=== PATIENT | female | born 1975 | race Caucasian/White ===

== ENCOUNTER → 2017-07-01 15:00 | Outpatient (REF) | payer MEDICAID, SELFPAY ==
[2017-07-01 17:46] LABS: Basophils # 0.1 K/mm3 (0-0.2); Basophils % 0.5 % (0.1-2.0); Eosinophils # 0.4 K/mm3 (0.0-0.4); Eosinophils % 3.8 % (0.1-12.0); Hematocrit 55.6 % (37.0-47.0); Hemoglobin 17.2 g/dL (12.2-16.2); Lymphocytes # 3.2 K/mm3 (0.7-4.5); Lymphocytes % 30.3 K/mm3 (10-50); Mean Corpuscular HGB Conc 30.9 g/dL (31.8-35.4); Mean Corpuscular Volume 97.2 fl (81-99); Mean Platelet Volume 9.6 fl (7.4-10.4); Monocytes # 0.6 K/mm3 (0.1-1.0); Monocytes % 5.7 % (1.7-9.3); Neutrophils # 6.3 K/mm3 (1.8-7.8); Neutrophils % 59.6 % (37.0-80.0); Platelet Count 176 K/mm3 (142-424); Red Blood Count 5.72 M/mm3 (4.20-5.40); Red Cell Distribution Width 14.1 % (11.5-17.5); White Blood Count 10.6 K/mm3 (4.8-10.8)
[2017-07-01 18:10] LABS: Alanine Aminotransferase 26 U/L (12-78); Albumin Level 3.4 gm/dL (3.4-5.0); Albumin/Globulin Ratio 0.9 (1.1-1.8); Alkaline Phosphatase 78 U/L (46-116); Anion Gap 8.5 mEq/L (5-15); Aspartate Amino Transferase 17 U/L (15-37); Bilirubin,Total 0.3 mg/dL (0.2-1.0); Blood Urea Nitrogen 20 mg/dL (7-18); Calcium 8.6 mg/dL (8.5-10.1); Carbon Dioxide 32 mmol/L (21.0-32.0); Chloride 108 mmol/L (98-107); Chol/HDL Ratio 4.3 (1-3.5); Cholesterol 189 mg/dL (140-200); Creatinine,Serum 0.83 mg/dL (0.55-1.02); Estimated Glomerular Filt Rate 75 ml/min (>60); Free T4 (Free Thyroxine) 1.28 ng/dl (0.76-1.46); GFR (African American) 91 ML/MIN (>60); Globulin 3.9 gm/dl (1.3-3.2); Glucose 85 mg/dL (74-106); HDL Cholesterol 44 mg/dL (29-89); LDL Cholesterol 116 mg/dL (0-130); Potassium 4.5 mmoL/L (3.5-5.1); Sodium 144 mmol/L (136-145); Thyroid Stimulating Hormone 2.33 uIU/ml (0.358-3.740); Total Protein,Serum 7.3 gm/dL (6.4-8.2); Triglycerides 145 mg/dL (30-200); VLDL Cholesterol 29 mg/dL (0-40)
[2017-07-01 18:37] LABS: Hemoglobin A1C 5.5 % (0.0-7.0)
== END ==
LOC: LAB 15:00
PROVIDERS: Visit Provider Nurse Practitioner Family
DX: R53.83 Other fatigue (principal)
CPT/HCPCS: 80053; 80061; 82652; 83036; 84439; 84443; 85025

== ENCOUNTER → 2017-08-06 14:11 | Outpatient (CLI) | payer MEDICAID, SELFPAY ==
[2017-08-06 18:49] LABS: Basophils % 0.3 % (0.1-2.0); Eosinophils # 0.9 K/mm3 (0.0-0.4); Eosinophils % 7.1 % (0.1-12.0); Lymphocytes # 3.1 K/mm3 (0.7-4.5); Lymphocytes % 25.7 K/mm3 (10-50); Mean Corpuscular HGB Conc 30.7 g/dL (31.8-35.4); Mean Corpuscular Hemoglobin 30.3 pg (27.0-31.2); Mean Corpuscular Volume 98.7 fl (81-99); Mean Platelet Volume 9.5 fl (7.4-10.4); Monocytes # 0.8 K/mm3 (0.1-1.0); Monocytes % 6.3 % (1.7-9.3); Neutrophils # 7.2 K/mm3 (1.8-7.8); Neutrophils % 60.5 % (37.0-80.0); Platelet Count 216 K/mm3 (142-424); Red Cell Distribution Width 13.7 % (11.5-17.5); White Blood Count 11.9 K/mm3 (4.8-10.8)
[2017-08-06 18:57] LABS: Hematocrit 55.3 % (37.0-47.0)
[2017-08-06 19:34] LABS: Alanine Aminotransferase 17 U/L (12-78); Albumin/Globulin Ratio 0.7 (1.1-1.8); Alkaline Phosphatase 96 U/L (46-116); Anion Gap 12.1 mEq/L (5-15); Aspartate Amino Transferase 11 U/L (15-37); Bilirubin,Total 0.2 mg/dL (0.2-1.0); Blood Urea Nitrogen 15 mg/dL (7-18); Calcium 8.8 mg/dL (8.5-10.1); Carbon Dioxide 31 mmol/L (21.0-32.0); Chloride 105 mmol/L (98-107); Creatinine,Serum 0.94 mg/dL (0.55-1.02); Estimated Glomerular Filt Rate 65 ml/min (>60); GFR (African American) 79 ML/MIN (>60); Globulin 4.2 gm/dl (1.3-3.2); Glucose 86 mg/dL (74-106); Potassium 4.1 mmoL/L (3.5-5.1); Sodium 144 mmol/L (136-145); Total Protein,Serum 7.2 gm/dL (6.4-8.2)
[2017-08-06 19:36] LABS: Amphetamine/Metha Screen,Urine Negative ng/mL (<1000); Barbiturates Screen,Urine Negative ng/mL (<200); Benzodiazepines Screen,Urine Negative ng/mL (200); Cannabinoid Screen,Urine Positive ng/mL (<50); Cocaine Screen,Urine Negative ng/g (<300); Methadone Screen,Urine Negative ng/mL (<300); Opiate Screen,Urine Negative ng/mL (<300); Phencyclidine Screen,Urine Negative ng/mL (<25)
== END ==
PROVIDERS: Visit Provider Nurse Practitioner Family
DX: R53.83 Other fatigue (principal); Z79.899 Other long term (current) drug therapy; R31.9 Hematuria, unspecified
CPT/HCPCS: 80053; 80305; 85025; 87086

== ENCOUNTER → 2018-10-06 12:04 | Outpatient (CLI) | payer MEDICAID, SELFPAY ==
[2018-10-06 12:40] LABS: Basophils # 0.1 K/mm3 (0-0.2); Basophils % 0.6 % (0.1-2.0); Eosinophils # 0.7 K/mm3 (0.0-0.4); Eosinophils % 6.5 % (0.1-12.0); Hematocrit 57.3 % (37.0-47.0); Lymphocytes # 3.2 K/mm3 (0.7-4.5); Mean Corpuscular Hemoglobin 30.3 pg (27.0-31.2); Mean Corpuscular Volume 94.9 fl (81-99); Mean Platelet Volume 9.4 fl (7.4-10.4); Monocytes # 0.6 K/mm3 (0.1-1.0); Monocytes % 6.2 % (1.7-9.3); Neutrophils # 5.8 K/mm3 (1.8-7.8); Neutrophils % 55.7 % (37.0-80.0); Platelet Count 186 K/mm3 (142-424); Red Blood Count 6.04 M/mm3 (4.20-5.40); Red Cell Distribution Width 15.3 % (11.5-17.5); White Blood Count 10.4 K/mm3 (4.8-10.8)
[2018-10-06 12:42] LABS: Hemoglobin 18.4 g/dL (12.2-16.2)
[2018-10-06 13:03] LABS: Anion Gap 11.8 mEq/L (5-15); Blood Urea Nitrogen 11 mg/dL (7-18); Calcium 8.7 mg/dL (8.5-10.1); Carbon Dioxide 29 mmol/L (21.0-32.0); Chloride 103 mmol/L (98-107); Creatinine,Serum 0.73 mg/dL (0.55-1.02); Estimated Glomerular Filt Rate 87 ml/min (>60); GFR (African American) 105 ML/MIN (>60); Glucose 84 mg/dL (74-106); Potassium 4.8 mmoL/L (3.5-5.1); Sodium 139 mmol/L (136-145)
== END ==
PROVIDERS: Visit Provider Internal Medicine Cardiovascular Disease
DX: R06.02 Shortness of breath (principal)
CPT/HCPCS: 36415; 80048; 85025

== ENCOUNTER → 2018-10-24 08:33 | Outpatient (CLI) | payer MEDICAID, SELFPAY ==
--- NOTE | 2018-10-24 08:36 | CA_ITS ---
PROCEDURE: 2-D M-mode and color Doppler study INDICATIONS FOR THE TEST: Chest pain COPD+ Heart Murmur Tobacco Smoking+ Palpitations Fatigue Syncope Edema+ Hypertension+Diabetes Mellitus Rheumatic Fever SOB+MÁRQUEZ Obesity + Hyperlipidemia Family History HD Additional History PATIENT INFORMATION HEIGHT: 61 WEIGHT:393 GENDER: Female B/P:144/78 2-D/M-MODE INTERPRETATION: 2-D MEASUREMENTS OBSERVED VALUES IN CMS Right Ventricular Dimension (RVDd) 2.7 Interventricular Septum (Thickness)(IVsd) 1.6 Left Ventricular Internal Dimensions(LVIDd) 4.6 Left Ventricular Posterior Wall (Thickness)(LVPWd) 1.4 Aortic Root 3.0 Aortic Cusp Separation 2.0 Left Atrial Dimensions (LAD) 4.6 2D 1. Left atrium is mildly enlarged, left ventricle is normal size, mild concentric left ventricular hypertrophy, visually estimated ejection fraction 55% with no regional wall motion abnormality, endocardial surfaces are very poorly visualized. 2. The right atrium and right ventricle are mildly enlarged with normal contractility. 3. The aortic valve is minimally thickened and fibrosed. 4. The mitral and tricuspid valve leaflets are minimally thickened. 5. Pulmonic valve is poorly present. 6. No significant pericardial effusion noted. DOPPLER INTERROGATION: Doppler interrogation of the aortic, mitral and tricuspid valvular presence of mild mitral and tricuspid regurgitation, tricuspid regurgitation jet velocity is inadequate for calculation of the right ventricular systolic pressure, diastolic parameters are inconclusive. CONCLUSION: 1. Normal left ventricular size, mild concentric left ventricular hypertrophy, visually estimated ejection fraction 55% with no regional wall motion abnormality. Diastolic parameters are inconclusive. Endocardial surface of poorly visualized. 2. Mildly enlarged right ventricle with normal contractility. 3. Mild mitral and tricuspid regurgitation 4. No significant pericardial effusion noted.
== END ==
PROVIDERS: PCP Emergency Medicine; Visit Provider Internal Medicine Cardiovascular Disease
DX: R06.02 Shortness of breath (principal); R60.0 Localized edema; G47.33 Obstructive sleep apnea (adult) (pediatric)
CPT/HCPCS: 93306; 95806

== ENCOUNTER → 2018-11-02 13:07 | Outpatient (CLI) | payer MEDICAID, SELFPAY ==
--- NOTE | 2018-11-02 13:29 | XR_ITS ---
XR chest 2V HISTORY: Shortness of breath, chest pain ITS.REASON: chest x ray ORDERING PHYSICIAN: Reginald Sesay MD PATIENT AGE: 43 years COMPARISON: 04/09/2017 FINDINGS: There is cardiomegaly without failure. No lobar consolidation or collapse. No acute bony findings. IMPRESSION: Mild cardiomegaly
--- NOTE | 2018-11-02 13:30 | XR_ITS ---
EXAM: XR lumbar spine 2-3V HISTORY: ITS.REASON: back pain ORDERING PHYSICIAN: Reginald Sesay MD PATIENT AGE: 43 years COMPARISON: None FINDINGS: Normal alignment. No fracture or dislocation. No lytic or blastic change. There are mild degenerative changes with mild endplate osteophytes in the lower thoracic spine and at L5. The disc spaces are well-preserved IMPRESSION: Mild degenerative changes, no acute finding
[2018-11-02 15:21] LABS: C-Reactive Protein 2.7 mg/L (0.0-0.9)
[2018-11-02 15:26] LABS: Erythrocyte Sedimentation Rate 6 mm/hr (0-20)
[2018-11-03 13:12] LABS: Anti-Centromere B Antibodies <0.2 AI (0.0-0.9); Anti-Jo-1 <0.2 AI (0.0-0.9); Anti-Smith Antibody <0.2 AI (0.0-0.9); Antichromatin Antibodies <0.2 AI (0.0-0.9); Antiscleroderma-70 Antibodies <0.2 AI (0.0-0.9); RNP Antibodies 0.4 AI (0.0-0.9); Sjogren's Anti-SS-A <0.2 AI (0.0-0.9); Sjogren's Anti-SS-B 0.9 AI (0.0-0.9)
[2018-11-04 06:22] LABS: dRVVT 50.6 sec (0.0-47.0); dRVVT Mix 37.1 sec (0.0-47.0)
[2018-11-04 17:48] LABS: Anti-DNA (DS) Ab Qn <1 IU/mL (0-9); RA Latex Turbid. <10.0 IU/mL (0.0-13.9)
[2018-11-04 17:49] LABS: Anti-Cyclic Citrullinated Pept 6 units (0-19)
[2018-11-04 17:51] LABS: Lupus Reflex Interpretation Comment: (.)
== END ==
PROVIDERS: PCP Nurse Practitioner Family; Visit Provider Internal Medicine Cardiovascular Disease
DX: J44.9 Chronic obstructive pulmonary disease, unspecified (principal); M25.50 Pain in unspecified joint; M54.9 Dorsalgia, unspecified; R06.02 Shortness of breath; R60.0 Localized edema; Z72.0 Tobacco use; F17.200 Nicotine dependence, unspecified, uncomplicated
CPT/HCPCS: 36415; 71046; 72100; 85613; 85651; 86140; 86200; 86225; 86235; 86431

== ENCOUNTER → 2018-11-16 16:37 | Outpatient (CLI) | payer MEDICAID, SELFPAY | PROVIDERS: Visit Provider Internal Medicine Cardiovascular Disease | DX: R06.02 Shortness of breath (principal) ==

== ENCOUNTER → 2018-12-01 11:51 | Outpatient (CLI) | payer MEDICAID, SELFPAY ==
[2018-12-01 15:14] LABS: Anion Gap 14.2 mEq/L (5-15); Blood Urea Nitrogen 30 mg/dL (7-18); Calcium 9.1 mg/dL (8.5-10.1); Carbon Dioxide 26 mmol/L (21.0-32.0); Chloride 101 mmol/L (98-107); Creatinine,Serum 0.96 mg/dL (0.55-1.02); Estimated Glomerular Filt Rate 63 ml/min (>60); GFR (African American) 77 ML/MIN (>60); Glucose 88 mg/dL (74-106); Potassium 5.2 mmoL/L (3.5-5.1); Sodium 136 mmol/L (136-145)
== END ==
PROVIDERS: Visit Provider Internal Medicine Cardiovascular Disease
DX: I10 Essential (primary) hypertension (principal); R06.02 Shortness of breath; R60.0 Localized edema
CPT/HCPCS: 36415; 80048

== ENCOUNTER → 2018-12-22 14:26 | Outpatient (CLI) | payer MEDICAID, SELFPAY ==
[2018-12-22 15:07] LABS: Amphetamine/Metha Screen,Urine Negative ng/mL (<1000); Barbiturates Screen,Urine Negative ng/mL (<200); Benzodiazepines Screen,Urine Negative ng/mL (<200); Cannabinoid Screen,Urine Negative ng/mL (<50); Cocaine Screen,Urine Negative ng/mL (<300); Methadone Screen,Urine Negative ng/mL (<300); Opiate Screen,Urine Negative ng/mL (<300); Phencyclidine Screen,Urine Negative ng/mL (<25)
== END ==
PROVIDERS: Visit Provider Nurse Practitioner Family
DX: Z79.899 Other long term (current) drug therapy (principal)
CPT/HCPCS: 80305

== ENCOUNTER → 2019-10-18 15:38 | Outpatient (CLI) | payer MEDICARE, MEDICAID, SELFPAY ==
[2019-10-18 16:07] LABS: Alanine Aminotransferase 14 U/L (12-78); Albumin Level 3.9 g/dl (3.5-5.0); Albumin/Globulin Ratio 1.1 (1.1-1.8); Alkaline Phosphatase 96 U/L (38-126); Anion Gap 10.9 mEq/L (5-15); Aspartate Amino Transferase 28 U/L (14-36); Bilirubin,Total 0.7 mg/dl (0.2-1.3); Blood Urea Nitrogen 23 mg/dl (7-17); Calcium 9.6 mg/dl (8.4-10.2); Carbon Dioxide 31 mmol/L (22.0-30.0); Chloride 99 mmol/L (98-107); Cholesterol 166 mg/dl (140-200); Estimated Glomerular Filt Rate 78 ml/min (>60); GFR (African American) 94 ML/MIN (>60); Globulin 3.7 g/dL (1.3-3.2); Glucose 92 mg/dl (74-100); HDL Cholesterol 55 mg/dl (40-60); Potassium 4.9 mmoL/L (3.5-5.1); Sodium 136 mmol/L (136-145); Total Protein,Serum 7.6 g/dl (6.3-8.2); Triglycerides 144 mg/dl (30-150); VLDL Cholesterol 29 mg/dL (0-40)
[2019-10-18 16:18] LABS: Direct LDL Cholesterol 96.54 mg/dL (100-129)
[2019-10-18 16:23] LABS: T4 (Thyroxine) 17.7 ug/dl (5.53-11.0)
[2019-10-18 16:37] LABS: Thyroid Stimulating Hormone 2.94 uIU/mL (0.465-4.68)
[2019-10-18 20:05] LABS: Basophils # 0.2 K/mm3 (0-0.2); Basophils % 1.7 % (0.1-2.0); Eosinophils # 0.5 K/mm3 (0.0-0.4); Eosinophils % 4.5 % (0.1-12.0); Hematocrit 57.7 % (37.0-47.0); Lymphocytes # 2.9 K/mm3 (0.7-4.5); Lymphocytes % 26.1 % (10-50); Mean Corpuscular HGB Conc 31.4 g/dL (31.8-35.4); Mean Corpuscular Hemoglobin 30.8 pg (27.0-31.2); Mean Corpuscular Volume 97.9 fl (81-99); Mean Platelet Volume 9.6 fl (7.4-10.4); Monocytes # 0.7 K/mm3 (0.1-1.0); Monocytes % 6.3 % (1.7-9.3); Neutrophils # 6.8 K/mm3 (1.8-7.8); Neutrophils % 61.4 % (37.0-80.0); Platelet Count 216 K/mm3 (142-424); Red Blood Count 5.89 M/mm3 (4.20-5.40); Red Cell Distribution Width 15.4 % (11.5-17.5)
[2019-10-18 20:11] LABS: Hemoglobin 18.1 g/dL (12.2-16.2)
[2019-10-20 07:27] LABS: Vitamin D 25 Hydroxy 11.5 ng/mL (30.0-100.0)
== END ==
PROVIDERS: Visit Provider Nurse Practitioner Family
DX: K21.0 Gastro-esophageal reflux disease with esophagitis (principal); M79.7 Fibromyalgia; E66.9 Obesity, unspecified; E55.9 Vitamin D deficiency, unspecified
CPT/HCPCS: 80053; 80061; 82652; 84436; 84443; 85025

== ENCOUNTER 2021-02-21 04:36 | Emergency (ER) | payer MEDICARE, MEDICAID, SELFPAY ==
[2021-02-21 04:38] VITALS: BP 130/57; PULSE 79; RESP 20; TEMP 36.9; O2SAT 92; BMI 75.5
--- NOTE | 2021-02-21 05:04 | US_ITS ---
PROCEDURE: US TRANSVAGINAL CLINICAL INDICATION: vaginal bleeding COMPARISON: No exams were available for comparison FINDINGS: UTERUS: 11cm x 5cmx 5cm with a combined endometrial thickness of 28.6mm LEFT OVARY: [id number] with a volume of 5.5ml. There is marked endometrial thickening with heterogeneous echogenicity which may be related to hemorrhage. Uterine carcinoma would be included in the differential diagnosis. Right ovary is not imaged. IMPRESSION: Enlarged uterus with grossly thickened endometrium suggesting blood clot/hemorrhage. Neoplasm not excluded. Dictated by: Pablo Quintana MD 02/21/2021 07:26 Pablo Quintana MD in [place] 02/21/2021 07:26
--- NOTE | 2021-02-21 05:08 | HMH.EDGENADL ---
ED Disposition Condition on Discharge: Serious - Critical Care Critical Care Time: No <Klarissa Whitaker - Last Filed: 02/21/21 07:54> <Jordon Mcdonald - Last Filed: 02/21/21 20:35> Clinical Impression: Vaginal bleeding, Left against medical advice, DUB (dysfunctional uterine bleeding) Disposition: Left Against Medical Advice Additional Instructions: see pcp and cathode maker for follow up Referrals: Jordon Mcdonald MD [Primary Care Provider] - Attestation: On 02/21/21, the high probability of a clinically significant, sudden or life threatening deterioration of the following system(s) required my full and direct attention, intervention and personal management. The time I documented below is in addition to time spent performing reported procedures but includes the following listed in this critical care notation. Medical Decision Making - Medical Records Medical records reviewed: Yes: I reviewed the patient's medical records. - Elton Inquiry Pt receiving controlled substance: No - Lab Data Result diagrams: 02/21/21 07:30 02/21/21 05:12 <Klarissa Whitaker - Last Filed: 02/21/21 07:54> - Lab Data Lab results reviewed: Yes: I reviewed the patient's lab results. Result diagrams: 02/21/21 07:30 02/21/21 05:12 - Physician Consults Physician Consulted: arely Reason -: Pt condition <Jordon Mcdonald - Last Filed: 02/21/21 20:35> Vital Signs: 02/21/21 04:38 02/21/21 07:32 02/21/21 07:33 Temperature 98.4 F Temperature Source Oral Pulse Rate 81 84 Pulse Rate [Right] 79 Respiratory Rate 20 20 Blood Pressure 141/78 H 141/78 H Blood Pressure [Right Arm] 130/57 L Blood Pressure Mean 93 Blood Pressure Mean [Right Arm] 81 Blood Pressure Position Sitting 02 Sat by Pulse Oximetry 92 L 92 L 92 L Oxygen Delivery Method Room Air 02/21/21 08:17 Temperature 98 F Temperature Source Oral Pulse Rate 89 Pulse Rate [Right] Respiratory Rate 18 Blood Pressure 138/68 Blood Pressure [Right Arm] Blood Pressure Mean Blood Pressure Mean [Right Arm] Blood Pressure Position Sitting 02 Sat by Pulse Oximetry Oxygen Delivery Method Room Air - Lab Data Lab Results 02/21/21 04:55: Urine Color Red, Urine Appearance Turbid, Urine pH 6.5, Ur Specific [place] 1.020, Urine Protein 2+, Urine Glucose (UA) Negative, Urine Ketones Negative, Urine Blood 3+, Urine Nitrate Negative, Urine Bilirubin Negative, Urine Urobilinogen 1.0, Ur Leukocyte Esterase 1+ A, Urine RBC Tntc, Urine WBC 3-5, Urine Bacteria 1+ 02/21/21 05:12: WBC 12.0 H, RBC 6.05 H, Hgb 17.6 H, Hct 59.1 H, MCV 97.7, MCH 29.0, MCHC 29.7 L, RDW 16.7, Plt Count 243, MPV 8.8, Neut % (Auto) 68.8, Lymph % (Auto) 21.2, [place] % (Auto) 5.6, Eos % (Auto) 3.5, Baso % (Auto) 1.0, Neut # (Auto) 8.3 H, Lymph # (Auto) 2.5, [place] # (Auto) 0.7, Eos # (Auto) 0.4, Baso # (Auto) 0.1 02/21/21 05:12: Sodium 140, Potassium 4.6, Chloride 101, Carbon Dioxide 33 H, Anion Gap 10.6, BUN 16, Creatinine 0.80, Estimated Creat Clear 67, Estimated GFR 78, Est GFR ( Amer) 94, Glucose 115 H, Calcium 8.7, Total Bilirubin 0.5, AST 23, ALT 15, Alkaline Phosphatase 94, Total Protein 7.3, Albumin 3.6, Globulin 3.7 H, Albumin/Globulin Ratio 1.0 L 02/21/21 05:12: Serum HCG, Qual Negative 02/21/21 07:30: WBC 14.3 H, RBC 5.84 H, Hgb 16.8 H, Hct 57.3 H, MCV 98.0, MCH 28.8, MCHC 29.4 L, RDW 16.7, Plt Count 259, MPV 8.3, Neut % (Auto) 73.9, Lymph % (Auto) 14.8, [place] % (Auto) 7.5, Eos % (Auto) 2.9, Baso % (Auto) 0.9, Neut # (Auto) 10.6 H, Lymph # (Auto) 2.1, [place] # (Auto) 1.1 H, Eos # (Auto) 0.4, Baso # (Auto) 0.1 Orders (Tests/Meds): ED MEDICATIONS Discontinued Medications Generic Name Dose Route Start Last Admin Trade Name Freq PRN Reason Stop Dose Admin Estrogens Conjugated 25 mg 02/21/21 06:45 02/21/21 07:03 Estrogens, Conjugated 25mg Vial IV 02/21/21 06:46 25 mg ONCE ONE Administration Sodium Chloride 50 ml 02/21/21 07:03 02/21/21 07:04 Sodium Chloride
--- NOTE | 2021-02-21 05:15 | PC.NURSE ---
paged u/s tech at this time
[2021-02-21 05:18] LABS: Microscopic, Urine URINE MICROSCOPIC (MICROSCOPIC)
--- NOTE | 2021-02-21 05:20 | PC.NURSE ---
2nd u/s [employer] paged at this time d/t change in on-order caller. S/w Stacy.
[2021-02-21 05:21] LABS: Basophils # 0.1 K/mm3 (0-0.2); Eosinophils # 0.4 K/mm3 (0.0-0.4); Eosinophils % 3.5 % (0.1-12.0); Hematocrit 59.1 % (37.0-47.0); Hemoglobin 17.6 g/dL (12.2-16.2); Lymphocytes # 2.5 K/mm3 (0.7-4.5); Lymphocytes % 21.2 % (10-50); Mean Corpuscular HGB Conc 29.7 g/dL (31.8-35.4); Mean Corpuscular Volume 97.7 fl (81-99); Mean Platelet Volume 8.8 fl (7.4-10.4); Monocytes # 0.7 K/mm3 (0.1-1.0); Monocytes % 5.6 % (1.7-9.3); Neutrophils # 8.3 K/mm3 (1.8-7.8); Neutrophils % 68.8 % (37.0-80.0); Platelet Count 243 K/mm3 (142-424); Red Blood Count 6.05 M/mm3 (4.20-5.40); Red Cell Distribution Width 16.7 % (11.5-17.5)
[2021-02-21 05:24] LABS: Chloride 101 mmol/L (98-107); Potassium 4.6 mmoL/L (3.5-5.1); Sodium 140 mmol/L (136-145)
[2021-02-21 05:27] LABS: Alanine Aminotransferase 15 U/L (12-78); Albumin Level 3.6 g/dl (3.5-5.0); Alkaline Phosphatase 94 U/L (38-126); Anion Gap 10.6 mEq/L (5-15); Aspartate Amino Transferase 23 U/L (14-36); Bilirubin,Total 0.5 mg/dl (0.2-1.3); Blood Urea Nitrogen 16 mg/dl (7-17); Carbon Dioxide 33 mmol/L (22.0-30.0); Creatinine Clearance Estimated 67 mL/min (50-200); Estimated Glomerular Filt Rate 78 ml/min (>60); GFR (African American) 94 ML/MIN (>60); Globulin 3.7 g/dL (1.3-3.2); Total Protein,Serum 7.3 g/dl (6.3-8.2)
[2021-02-21 05:28] LABS: Calcium 8.7 mg/dl (8.4-10.2); Glucose 115 mg/dl (74-100)
[2021-02-21 05:30] LABS: HCG Qualitative, Serum Negative (Negative)
[2021-02-21 05:40] LABS: Appearance,Urine TURBID (Clear); Bilirubin,Urine Negative (Negative); Blood, Urine 3+ (Negative); Color,Urine RED (Yellow); Glucose,Urine (UA) Negative (Negative); Ketones,Urine Negative (Negative); Leukocyte Esterase,Urine 1+ (Negative); Nitrate,Urine Negative (Negative); PH,Urine 6.5 (5.0-8.5); Protein,Urine 2+ (Negative)
[2021-02-21 05:41] LABS: Bacteria,Urine 1+ /lpf; RBC,Urine TNTC #/hpf (0-3)
--- NOTE | 2021-02-21 05:50 | PC.NURSE ---
pt to u/s with solar maintenance technician
--- NOTE | 2021-02-21 06:20 | PC.NURSE ---
MD Julianne gainesceled Type & Screen, Lab notified
--- NOTE | 2021-02-21 06:29 | PC.NURSE ---
pt back from u/s.
--- NOTE | 2021-02-21 06:37 | PC.NURSE ---
on phone with dr mcgee @ this time
--- NOTE | 2021-02-21 07:04 | PC.NURSE ---
spoke with Estella from [facility]. premarin to be mixed with 50ml ns and infused over 30mins
[2021-02-21 07:32] VITALS: BP 141/78; PULSE 81; O2SAT 92
[2021-02-21 07:33] VITALS: BP 141/78; PULSE 84; RESP 20; O2SAT 92
[2021-02-21 07:34] LABS: Basophils # 0.1 K/mm3 (0-0.2); Basophils % 0.9 % (0.1-2.0); Eosinophils # 0.4 K/mm3 (0.0-0.4); Eosinophils % 2.9 % (0.1-12.0); Hematocrit 57.3 % (37.0-47.0); Hemoglobin 16.8 g/dL (12.2-16.2); Lymphocytes # 2.1 K/mm3 (0.7-4.5); Lymphocytes % 14.8 % (10-50); Mean Corpuscular HGB Conc 29.4 g/dL (31.8-35.4); Mean Corpuscular Hemoglobin 28.8 pg (27.0-31.2); Mean Platelet Volume 8.3 fl (7.4-10.4); Monocytes # 1.1 K/mm3 (0.1-1.0); Monocytes % 7.5 % (1.7-9.3); Neutrophils # 10.6 K/mm3 (1.8-7.8); Neutrophils % 73.9 % (37.0-80.0); Platelet Count 259 K/mm3 (142-424); Red Blood Count 5.84 M/mm3 (4.20-5.40); Red Cell Distribution Width 16.7 % (11.5-17.5); White Blood Count 14.3 K/mm3 (4.8-10.8)
--- NOTE | 2021-02-21 08:10 | PC.NURSE ---
pt signing out ama
[2021-02-21 08:17] VITALS: BP 138/68; PULSE 89; RESP 18; TEMP 36.6; O2SAT 98
== END 2021-02-21 08:19 | disposition left against medical advice (07) ==
PROVIDERS: Emergency Provider Emergency Medicine; PCP Emergency Medicine
DX: N93.8 Other specified abnormal uterine and vaginal bleeding (principal); F41.8 Other specified anxiety disorders; I10 Essential (primary) hypertension; J44.9 Chronic obstructive pulmonary disease, unspecified; Z79.899 Other long term (current) drug therapy
CPT/HCPCS: 76830; 80053; 81001; 84703; 85025; 87086; 96365; 99283

== ENCOUNTER → 2021-09-02 15:25 | Outpatient (CLI) | payer MEDICARE, SELFPAY ==
[2021-09-02 16:30] LABS: Basophils # 0.1 K/mm3 (0-0.2); Basophils % 1.2 % (0.1-2.0); Eosinophils # 0.2 K/mm3 (0.0-0.4); Eosinophils % 2.2 % (0.1-12.0); Hematocrit 50.6 % (37.0-47.0); Hemoglobin 14.5 g/dL (12.2-16.2); Lymphocytes # 1.4 K/mm3 (0.7-4.5); Lymphocytes % 20.6 % (10-50); Mean Corpuscular HGB Conc 28.6 g/dL (31.8-35.4); Mean Corpuscular Hemoglobin 23.5 pg (27.0-31.2); Mean Corpuscular Volume 82.3 fl (81-99); Mean Platelet Volume 7.9 fl (7.4-10.4); Monocytes # 0.5 K/mm3 (0.1-1.0); Monocytes % 7.8 % (1.7-9.3); Neutrophils # 4.7 K/mm3 (1.8-7.8); Neutrophils % 68.2 % (37.0-80.0); Platelet Count 218 K/mm3 (142-424); Red Blood Count 6.15 M/mm3 (4.20-5.40); Red Cell Distribution Width 21.3 % (11.5-17.5); White Blood Count 6.9 K/mm3 (4.8-10.8)
[2021-09-02 17:26] LABS: Alanine Aminotransferase 16 U/L (12-78); Albumin Level 3.5 g/dl (3.5-5.0); Albumin/Globulin Ratio 1.2 (1.1-1.8); Alkaline Phosphatase 76 U/L (38-126); Anion Gap 10.2 mEq/L (5-15); Aspartate Amino Transferase 23 U/L (14-36); Bilirubin,Total 1.2 mg/dl (0.2-1.3); Blood Urea Nitrogen 11 mg/dl (7-17); Calcium 9.2 mg/dl (8.4-10.2); Carbon Dioxide 35 mmol/L (22.0-30.0); Chloride 96 mmol/L (98-107); Chol/HDL Ratio 3.9 (1-3.5); Cholesterol 98 mg/dl (140-200); Estimated Glomerular Filt Rate 90 ml/min (>60); GFR (African American) 109 ML/MIN (>60); Glucose 77 mg/dl (74-100); HDL Cholesterol 25 mg/dl (40-60); Potassium 4.2 mmoL/L (3.5-5.1); Sodium 137 mmol/L (136-145); Total Protein,Serum 6.5 g/dl (6.3-8.2); Triglycerides 88 mg/dl (30-150); VLDL Cholesterol 18 mg/dL (0-40)
[2021-09-02 17:31] LABS: Hemoglobin A1C 5.7 % (4.0-6.0)
[2021-09-02 17:38] LABS: Direct LDL Cholesterol 50.48 mg/dL (100-129)
[2021-09-02 17:45] LABS: T4 (Thyroxine) 12.8 ug/dl (5.53-11.0)
[2021-09-02 17:58] LABS: Thyroid Stimulating Hormone 4.39 uIU/mL (0.465-4.68)
[2021-09-02 17:59] LABS: 25-OH Vitamin D, Total < 12.8 ng/mL (30-100)
== END ==
PROVIDERS: Visit Provider Nurse Practitioner Family
DX: G57.93 Unspecified mononeuropathy of bilateral lower limbs (principal); E66.9 Obesity, unspecified; E11.9 Type 2 diabetes mellitus without complications; R53.83 Other fatigue; E55.9 Vitamin D deficiency, unspecified; Z68.45 Body mass index [BMI] 70 or greater, adult
CPT/HCPCS: 80053; 80061; 82306; 83036; 84436; 84443; 85025

== ENCOUNTER 2021-12-07 12:25 | Emergency (ER) | payer MEDICARE, MEDICAID, SELFPAY ==
[2021-12-07 12:26] VITALS: BP 147/83; PULSE 62; RESP 16; TEMP 36.8; O2SAT 98; BMI 61.9
--- NOTE | 2021-12-07 13:00 | HMH.EDUTC ---
[facility] [place] Clinical Impression: Dental abscess, Pain, dental Disposition: Home, Self-Care Condition on Discharge: Good Instructions: Tooth Abscess, DI for Tooth Abscess Additional Instructions: Take tylenol or ibuprofen for pain or fever. Take the medications as directed. Follow up with your regular doctor. GO TO THE ER FOR ANY WORSENING SYMPTOMS You have to be seen by your dentist soon. Prescriptions: Amoxicillin/Potassium Clav [Amox-Clav 875-125 mg Tablet] 1 tab PO BID #20 tab Transmission Status: Received by [facility] Referrals: Jordon Mcdonald MD [Primary Care Provider] - Time of Disposition: 13:13 Medical Decision Making - Medical Records Medical records reviewed: No: I reviewed the patient's medical records. - Elton Inquiry Pt receiving controlled substance: No Vital Signs: 12/07/21 12:26 12/07/21 13:38 Temperature 98.3 F 98.3 F Temperature Source Oral Oral Pulse Rate 80 Pulse Rate [Right] 62 Respiratory Rate 16 16 Blood Pressure 140/70 Blood Pressure [Right Arm] 147/83 H Blood Pressure Mean [Right Arm] 104 Blood Pressure Source Automatic Cuff Blood Pressure Source [Right Arm] Automatic Cuff Blood Pressure Position Sitting Blood Pressure Position [Right Arm] Sitting 02 Sat by Pulse Oximetry 98 Oxygen Delivery Method Room Air Room Air [facility] [place] - General Stated complaint: mouth pain Time Seen by Provider: 12/07/21 13:00 - History of Present Illness Provider Complaint: She states that for the past several days she has had right upper jaw pain from a decayed tooth. - Related Data Previous Rx's Medication Instructions Recorded albuterol sulfate 2.5 mg INHALATION Q6H #75 ml 08/28/21 albuterol sulfate 90 mcg/actuation See Rx Instructions .ROUTE 08/28/21 breath activated powder inhaler .COMPLEX #1 each budesonide-formoterol HFA 160 2 puff INHALATION BID #10.2 g 08/28/21 mcg-4.5 mcg/actuation aerosol inhaler lisinopril 20 1 tab PO BID 90 Days #180 tab 08/28/21 mg-hydrochlorothiazide 25 mg tablet duloxetine 30 mg capsule,delayed See Rx Instructions .ROUTE 08/29/21 release .COMPLEX #90 cap spironolactone 25 mg tablet 25 mg PO DAILY #30 tab 08/29/21 cholecalciferol (vitamin D3) 1,250 1,250 mcg PO WEEKLY #7 tab 09/05/21 mcg (50,000 unit) tablet cholecalciferol (vitamin D3) 50 50 mcg PO DAILY 30 Days #30 cap 09/05/21 mcg (2,000 unit) capsule Amoxicillin/Potassium Clav 1 tab PO BID #20 tab 12/07/21 [Amox-Clav 875-125 mg Tablet] Hydrocodone/Acetaminophen 1 each PO Q6 #12 tab 12/07/21 [Hydrocodone-Acetamin 7.5-325] Allergies Allergy/AdvReac Type Severity Reaction Status Date / Time No Known Allergies Allergy Verified 09/02/21 14:19 [facility] History - Hepatitis A Screen Attestation statement:: This patient has been screened for Hepatitis A risk factors. I have reviewed the patient's past medical history: Yes Medical History: Reports:: Anxiety, Chronic Obstructive Pulmonary Disease (COPD), Depression, Hypertension Laterality Cases: Bilateral: Tonsillectomy Other Surgeries: Yes: No Previous Surgery, Amputation: No Fractures: No - Social History Smoking Status: Current every day smoker Tobacco Type: cigarettes # Packs/Day (cigarettes): 2 #Yrs smoked (if former smoker): 20 Alcohol Intake: never Substance Use Type: marijuana Occupational Status: unemployed Housing: apartment Household Members: family - Psychiatric History Pschychiatric History:: Reports:: Anxiety, Depression Family Hx:: Hypertension, Kidney Disease, Heart Attack, Cancer Comment: Mother- of [place]@53 ROS Obtained: Yes All systems reviewed & no additional complaints - Constitutional Constitutional: Denies chills, Denies fever(s) - Eyes Eyes: Denies eye discharge - ENT Ears, Nose, Mouth, and Throat: Reports as per HPI - Cardiovascular Cardiovascular: Denies chest pain - Respiratory Respiratory: Denies chest congestion,
[2021-12-07 13:38] VITALS: BP 140/70; PULSE 80; RESP 16; TEMP 36.8; O2SAT 98
== END 2021-12-07 13:39 | disposition home or self-care (01) ==
PROVIDERS: Emergency Provider Nurse Practitioner Family; PCP Emergency Medicine
DX: K04.7 Periapical abscess without sinus (principal)
CPT/HCPCS: 99212; G0463

== ENCOUNTER 2021-12-07 16:48 | Emergency (ER) | payer MEDICARE, MEDICAID, SELFPAY ==
[2021-12-07 16:49] VITALS: BP 150/90; PULSE 76; RESP 22; TEMP 36.8; O2SAT 94; BMI 61.9
[2021-12-07 16:56] VITALS: BP 150/90; PULSE 82; RESP 18; O2SAT 95
--- NOTE | 2021-12-07 17:34 | HMH.EDGENADL ---
ED Disposition Clinical Impression: Dental abscess Disposition: Home, Self-Care Condition on Discharge: Good Referrals: Jordon Mcdonald MD [Primary Care Provider] - - Critical Care Critical Care Time: No Attestation: On 12/07/21, the high probability of a clinically significant, sudden or life threatening deterioration of the following system(s) required my full and direct attention, intervention and personal management. The time I documented below is in addition to time spent performing reported procedures but includes the following listed in this critical care notation. Medical Decision Making - Elton Inquiry Pt receiving controlled substance: Yes Elton was queried for this patient: Yes Risks and benefits of using a controlled substance: were discussed with pt by me Vital Signs: 12/07/21 16:49 Temperature 98.2 F Temperature Source Oral Pulse Rate [Radial] 76 Respiratory Rate 22 Blood Pressure [Right Arm] 150/90 H Blood Pressure Mean [Right Arm] 110 Blood Pressure Position [Right Arm] Sitting 02 Sat by Pulse Oximetry 94 L Oxygen Delivery Method Room Air Orders (Tests/Meds): ED MEDICATIONS Discontinued Medications Generic Name Dose Route Start Last Admin Trade Name [place] PRN Reason Stop Dose Admin Ketorolac Tromethamine 60 mg 12/07/21 17:43 12/07/21 17:46 Ketorolac 60mg/2ml Vial IM 12/07/21 17:44 60 mg ONCE ONE Administration Ondansetron HCl 4 mg 12/07/21 17:31 12/07/21 17:32 Ondansetron 4mg Odt SL 12/07/21 17:32 4 mg ONCE ONE Administration General Adult HPI - General Chief complaint: PAIN Stated complaint: dental pain Time Seen by Provider: 12/07/21 17:48 Mode of Arrival: Ambulatory Limitations: No Limitations Description of Symptoms (Recalled from ER Triage Doc. by RN): to ed per pvt car with c/o rt side upper and lower dental pain x 2 weeks progressively getting worse. pt seen at [facility] today and given antibiotics and dental balls with no relief of pain. pt tearful c/o nausea due to pain. - History of Present Illness HPI narrative: pt presents w 2 week h/o dental pain, severe. Seen here earlier today and rxd abx. but states pain is severe. Denies fever. Onset (ago): week(s) Location: mouth Radiation: non-radiation Severity: severe Quality: constant Consistency: constant Relieving factors: none Exacerbating factors: eating Associated symptoms: negative: fever/chills - Related Data Previous Rx's Medication Instructions Recorded albuterol sulfate 2.5 mg INHALATION Q6H #75 ml 08/28/21 albuterol sulfate 90 mcg/actuation See Rx Instructions .ROUTE 08/28/21 breath activated powder inhaler .COMPLEX #1 each budesonide-formoterol HFA 160 2 puff INHALATION BID #10.2 g 08/28/21 mcg-4.5 mcg/actuation aerosol inhaler lisinopril 20 1 tab PO BID 90 Days #180 tab 08/28/21 mg-hydrochlorothiazide 25 mg tablet duloxetine 30 mg capsule,delayed See Rx Instructions .ROUTE 08/29/21 release .COMPLEX #90 cap spironolactone 25 mg tablet 25 mg PO DAILY #30 tab 08/29/21 cholecalciferol (vitamin D3) 1,250 1,250 mcg PO WEEKLY #7 tab 09/05/21 mcg (50,000 unit) tablet cholecalciferol (vitamin D3) 50 50 mcg PO DAILY 30 Days #30 cap 09/05/21 mcg (2,000 unit) capsule Amoxicillin/Potassium Clav 1 tab PO BID #20 tab 12/07/21 [Amox-Clav 875-125 mg Tablet] Allergies Allergy/AdvReac Type Severity Reaction Status Date / Time No Known Allergies Allergy Verified 09/02/21 14:19 [facility] History - Hepatitis A Screen Attestation statement:: This patient has been screened for Hepatitis A risk factors. Medical History: Reports:: Anxiety, Chronic Obstructive Pulmonary Disease (COPD), Depression, Hypertension Laterality Cases: Bilateral: Tonsillectomy Other Surgeries: Yes: No Previous Surgery, Amputation: No Fractures: No - Social History Smoking Status: Current every day smoker Tobacco Type: cigarettes # Packs/Day (cigarettes): 2 #Yrs smoked (i
[2021-12-07 18:16] VITALS: BP 129/74; PULSE 78; RESP 16; TEMP 36.6; O2SAT 98
== END 2021-12-07 18:17 | disposition home or self-care (01) ==
PROVIDERS: Emergency Provider Emergency Medicine; PCP Emergency Medicine
DX: K04.7 Periapical abscess without sinus (principal); Z82.49 Family history of ischemic heart disease and other diseases of the circulatory system; Z84.2 Family history of other diseases of the genitourinary system; Z82.3 Family history of stroke; Z80.9 Family history of malignant neoplasm, unspecified; F41.9 Anxiety disorder, unspecified; J44.9 Chronic obstructive pulmonary disease, unspecified; F32.A Depression, unspecified; I10 Essential (primary) hypertension
CPT/HCPCS: 96372; 99283

== ENCOUNTER 2022-03-20 00:55 | Emergency (ER) | payer MEDICARE, MEDICAID, SELFPAY ==
[2022-03-20 01:00] VITALS: BP 133/74; PULSE 74; RESP 16; TEMP 36.6; O2SAT 95; BMI 71.8
--- NOTE | 2022-03-20 01:11 | HMH.EDGENADL ---
Discharge Plan Disposition Patient Disposition: Home, Self-Care Prescriptions Prescriptions: New cephalexin [cephalexin] 500 mg capsule 500 mg PO TID Qty: 30 0RF No Action ProAir RespiClick 90 mcg/actuation aerosol powdr breath activated See Rx Instructions .ROUTE .COMPLEX Qty: 1 2RF Dose Instruction: INHALE 1 PUFF DAILY FOR COPD Rx Instructions: INHALE 1 PUFF DAILY FOR COPD budesonide-formoterol 160-4.5 mcg/actuation HFA aerosol inhaler 2 puff inhalation BID Qty: 10.2 2RF lisinopril-hydrochlorothiazide 20-25 mg tablet 1 tab PO BID 90 Days Qty: 180 0RF albuterol sulfate 2.5 mg /3 mL (0.083 %) solution for nebulization 2.5 mg INHALATION Q6H Qty: 75 2RF spironolactone [Aldactone] 25 mg tablet 25 mg PO DAILY Qty: 30 4RF duloxetine 30 mg capsule,delayed release(DR/EC) See Rx Instructions .ROUTE .COMPLEX Qty: 90 0RF Dose Instruction: TAKE 1 CAPSULE BY MOUTH ONCE DAILY Rx Instructions: TAKE 1 CAPSULE BY MOUTH ONCE DAILY cholecalciferol (vitamin D3) 1,250 mcg (50,000 unit) tablet 1,250 mcg PO WEEKLY Qty: 7 1RF cholecalciferol (vitamin D3) 50 mcg (2,000 unit) capsule 50 mcg PO DAILY 30 Days Qty: 30 3RF amoxicillin-pot clavulanate 1 EACH tablet 1 tab PO BID Qty: 20 0RF hydrocodone-acetaminophen 1 EACH tablet 1 each PO Q6 Qty: 12 0RF Referrals Follow up/Referrals: Jordon Mcdonald MD [Primary Care Provider] - See instructions Clinical Impressions Clinical Impression: Pain, dental, Dental infection Instructions Patient Instructions: DI for Dental Pain Discharge ED Provider: Jordon Mcdonald General Adult HPI General Chief complaint: PAIN Stated complaint: swollen gums and toothache Time Seen by Provider: 03/20/22 01:12 Mode of Arrival: Ambulatory Source of Information: Patient and Medical Record Limitations: No Limitations Description of Symptoms (Recalled from ER Triage Doc. by RN): C/O PAIN TO RIGHT UPPER BACK TOOTH THAT RADIATES TO THE FRONT. REPORTS PAIN X 3 DAYS History of Present Illness HPI narrative: progressive dental pain rt upper over the last 3 days Onset (ago): day(s) Location: mouth Severity: moderate Associated symptoms: denies other symptoms Related Data Previous Rx's Medication Instructions Recorded albuterol sulfate 2.5 mg/3 mL 2.5 mg (3 mL) inhalation Q6H #75 mL 08/28/21 (0.083 %) solution for nebulization albuterol sulfate 90 mcg/actuation See Rx Instructions .Route 08/28/21 breath activated powder inhaler .COMPLEX #1 ea (ProAir RespiClick) budesonide-formoterol HFA 160 2 puff inhalation BID COPD #10.2 08/28/21 mcg-4.5 mcg/actuation aerosol grams inhaler lisinopril 20 1 tab PO BID bp 90 days #180 tabs 08/28/21 mg-hydrochlorothiazide 25 mg tablet duloxetine 30 mg capsule,delayed See Rx Instructions .Route 08/29/21 release .COMPLEX #90 caps spironolactone 25 mg tablet 25 mg PO DAILY #30 tabs 08/29/21 (Aldactone) cholecalciferol (vitamin D3) 1,250 1,250 mcg PO WEEKLY #7 tabs 09/05/21 mcg (50,000 unit) tablet cholecalciferol (vitamin D3) 50 50 mcg PO DAILY 30 days #30 caps 09/05/21 mcg (2,000 unit) capsule amoxicillin 875 mg-potassium 1 tab PO BID #20 tabs 12/07/21 clavulanate 125 mg tablet hydrocodone 7.5 mg-acetaminophen 1 each PO Q6 #12 tabs 12/07/21 325 mg tablet cephalexin 500 mg capsule 500 mg PO TID #30 caps 03/20/22 Allergies Allergy/AdvReac Type Severity Reaction Status Date / Time No Known Allergies Allergy Verified 09/02/21 14:19 [facility] Medical History (Updated 03/20/22 @ 01:17 by Jordon Mcdonald MD) Hypertension Smoker Tobacco abuse Social History Smoking Status: Current every day smoker tobacco type: cigarettes packs per day: 2 alcohol intake: never substance use type: marijuana current occupational status: unemployed Travel in the last 8 weeks: Inside the [place] household members: family housing: apartment ROS Obt
[2022-03-20 01:41] VITALS: BP 130/71; PULSE 74; RESP 14; TEMP 36.6; O2SAT 98
== END 2022-03-20 01:45 | disposition home or self-care (01) ==
PROVIDERS: Emergency Provider Emergency Medicine; PCP Emergency Medicine
DX: K08.89 Other specified disorders of teeth and supporting structures (principal); K02.9 Dental caries, unspecified; K04.7 Periapical abscess without sinus; Z79.899 Other long term (current) drug therapy; F17.210 Nicotine dependence, cigarettes, uncomplicated; I10 Essential (primary) hypertension
CPT/HCPCS: 96372; 99283; J0696

== ENCOUNTER 2023-04-20 00:23 | Emergency (ER) | payer MEDICARE, SELFPAY ==
[2023-04-20 00:25] VITALS: BP 121/76; PULSE 74; RESP 16; TEMP 36.6; O2SAT 97; BMI 75.5
[2023-04-20 00:35] VITALS: BP 121/76; PULSE 79; RESP 20; O2SAT 95
--- NOTE | 2023-04-20 00:48 | CT_ITS ---
PROCEDURE INFORMATION: Exam: CT Abdomen And Pelvis Without Contrast Exam date and time: 04/20/2023 1:01 AM Age: 47 years old Clinical indication: Abdominal pain; Flank; Right; Patient HX: States pain since 04/16; Additional info: R flank pain TECHNIQUE: Imaging protocol: Computed tomography of the abdomen and pelvis without contrast. Radiation optimization: All CT scans at this facility use at least one of these dose optimization techniques: automated exposure control; mA and/or kV adjustment per patient size (includes targeted exams where dose is matched to clinical indication); or iterative reconstruction. REPORTING DATA: Count of CT and Cardiac NM exams in prior 12 months: This patient has received 0 known CTs and 0 known cardiac nuclear medicine studies in the 12 months prior to the current study. COMPARISON: [facility] CT abdomen pelvis wo con 11/01/2018 8:51 PM FINDINGS: Liver: Normal. No mass. Gallbladder and bile ducts: Normal. No calcified stones. No ductal dilation. Pancreas: Normal. No ductal dilation. Spleen: Normal. No splenomegaly. Adrenal glands: Bilateral adrenal adenomas. Kidneys and ureters: Nonobstructing 7 mm left renal stone. No hydronephrosis. Stomach and bowel: Cannot exclude mild diverticulitis in the sigmoid colon. No obstruction. No mucosal thickening. Appendix: Appendix not clearly seen but no secondary signs of appendicitis. Intraperitoneal space: Mild free fluid. Vasculature: Unremarkable. No abdominal aortic aneurysm. Lymph nodes: Unremarkable. No enlarged lymph nodes. Urinary bladder: Unremarkable as visualized. Reproductive: Unremarkable as visualized. Bones/joints: Unremarkable. No acute fracture. Soft tissues: Unremarkable. IMPRESSION: Cannot exclude mild diverticulitis in the sigmoid. Correlate clinically
--- NOTE | 2023-04-20 00:51 | [facility].EDGENADL ---
Discharge Plan Disposition Patient Disposition: Home, Self-Care Condition: Good Prescriptions Prescriptions: New cefdinir 300 mg capsule 300 mg PO BID 10 Days Qty: 20 0RF ondansetron 4 mg tablet,disintegrating 4 mg PO Q8H 5 Days Qty: 15 0RF phenazopyridine [Pyridium] 200 mg tablet 200 mg PO Q8H PRN (Reason: pain) Qty: 10 0RF ketorolac 10 mg tablet 10 mg PO Q8H PRN (Reason: pain) Qty: 10 0RF No Action ProAir RespiClick 90 mcg/actuation aerosol powdr breath activated See Rx Instructions .ROUTE .COMPLEX Qty: 1 2RF Dose Instruction: INHALE 1 PUFF DAILY FOR COPD Rx Instructions: INHALE 1 PUFF DAILY FOR COPD budesonide-formoterol 160-4.5 mcg/actuation HFA aerosol inhaler 2 puff inhalation BID Qty: 10.2 2RF lisinopril-hydrochlorothiazide 20-25 mg tablet 1 tab PO BID 90 Days Qty: 180 0RF albuterol sulfate 2.5 mg /3 mL (0.083 %) solution for nebulization 2.5 mg INHALATION Q6H Qty: 75 2RF spironolactone [Aldactone] 25 mg tablet 25 mg PO DAILY Qty: 30 4RF duloxetine 30 mg capsule,delayed release(DR/EC) See Rx Instructions .ROUTE .COMPLEX Qty: 90 0RF Dose Instruction: TAKE 1 CAPSULE BY MOUTH ONCE DAILY Rx Instructions: TAKE 1 CAPSULE BY MOUTH ONCE DAILY cholecalciferol (vitamin D3) 1,250 mcg (50,000 unit) tablet 1,250 mcg PO WEEKLY Qty: 7 1RF cholecalciferol (vitamin D3) 50 mcg (2,000 unit) capsule 50 mcg PO DAILY 30 Days Qty: 30 3RF amoxicillin-pot clavulanate 1 EACH tablet 1 tab PO BID Qty: 20 0RF hydrocodone-acetaminophen 1 EACH tablet 1 each PO Q6 Qty: 12 0RF cephalexin [cephalexin] 500 mg capsule 500 mg PO TID Qty: 30 0RF Referrals Follow up/Referrals: Jordon Mcdonald MD [Primary Care Provider] - See instructions Activity Restrictions/Add. Instructions Additional Instructions/Restrictions: You were evaluated in the emergency department today. Please lemon picker your prescription for antibiotics and take the full course as prescribed. I am also sending a nausea medication and medication for you to have as needed for pain. Follow-up with your primary care provider over the next 3 days for reassessment. Return to the emergency department for new or worsening symptoms, such significant worsening of pain, intractable nausea and vomiting, or other concerns. Clinical Impressions Clinical Impression: Pyelonephritis Instructions Patient Instructions: DI for Kidney Infection, DI for Acute Abdominal Pain Discharge ED Provider: Alessandra Dobson General Adult HPI General Chief complaint: Abdominal Pain Stated complaint: pain right side waist line area with vomiting Time Seen by Provider: 04/20/23 00:42 Mode of Arrival: Ambulatory Source of Information: Patient Limitations: No Limitations Description of Symptoms (Recalled from ER Triage Doc. by RN): Patient ambulatory to triage. Complaints of right flank pain radiating to RLQ in pelvic area since 04/16. Increased pain, with nausea at present. Denies burning or frequency with urination. Reports hot shower on back along with OTC pain meds have provdied slight relief. History of Present Illness HPI narrative: This patient is a 47-year-old female with a history of hypertension, COPD, obesity, anxiety, and depression presented to the emergency department for evaluation with concern for right flank/right lower quadrant pain since 04/16. She notes that it is constant. She denies any known trauma or injuries. Nothing to make it better or worse. She denies any changes with position or movement. No fevers, chills, changes in bowel movements, dysuria, polyuria, or abnormal discharge. She has had nausea, nonbloody nonbilious emesis, and change in color of her urine. Related Data Previous Rx's Medication Instructions Recorded albuterol sulfate 2.5 mg/3 mL 2.5 mg (3 mL) inhalation Q6H #75 mL 08/28/21 (0.083 %) solution for nebulization albuterol sulfate 90 mcg/actuation See Rx
[2023-04-20 00:53] LABS: Microscopic, Urine URINE MICROSCOPIC (MICROSCOPIC)
[2023-04-20 01:03] LABS: Basophils # 0.1 K/mm3 (0-0.2); Basophils % 0.8 % (0.1-2.0); Eosinophils # 0.4 K/mm3 (0.0-0.4); Eosinophils % 3.2 % (0.1-12.0); Hematocrit 58.5 % (37.0-47.0); Lymphocytes # 3.7 K/mm3 (0.7-4.5); Lymphocytes % 26.5 % (10-50); Mean Corpuscular HGB Conc 31.5 g/dL (31.8-35.4); Mean Corpuscular Hemoglobin 29.9 pg (27.0-31.2); Mean Corpuscular Volume 94.8 fl (81-99); Mean Platelet Volume 9.2 fl (7.4-10.4); Monocytes # 1.1 K/mm3 (0.1-1.0); Monocytes % 7.7 % (1.7-9.3); Neutrophils # 8.5 K/mm3 (1.8-7.8); Neutrophils % 61.9 % (37.0-80.0); Platelet Count 205 K/mm3 (142-424); Red Blood Count 6.17 M/mm3 (4.20-5.40); Red Cell Distribution Width 14.9 % (11.5-17.5); White Blood Count 13.8 K/mm3 (4.8-10.8)
[2023-04-20 01:06] LABS: Chloride 99 mmol/L (98-107); Sodium 136 mmol/L (136-145)
[2023-04-20 01:06] LABS: Appearance,Urine SL CLOUDY (Clear); Bilirubin,Urine Negative (Negative); Blood, Urine 2+ (Negative); Color,Urine YELLOW (Yellow); Glucose,Urine (UA) Negative (Negative); Ketones,Urine Negative (Negative); Leukocyte Esterase,Urine 2+ (Negative); Nitrate,Urine Negative (Negative); Protein,Urine 1+ (Negative); Specific Gravity, Urine 1.025 (1.005-1.030); Urobilinogen,Urine 0.2 EU/dl (0.2)
[2023-04-20 01:07] LABS: Potassium 4.3 mmoL/L (3.5-5.1)
[2023-04-20 01:09] LABS: Alanine Aminotransferase 26 U/L (12-78); Albumin Level 4.2 g/dl (3.5-5.0); Albumin/Globulin Ratio 1.1 (1.1-1.8); Alkaline Phosphatase 101 U/L (38-126); Anion Gap 11.3 mEq/L (5-15); Aspartate Amino Transferase 33 U/L (14-36); Bilirubin,Total 0.7 mg/dl (0.2-1.3); Blood Urea Nitrogen 15 mg/dl (7-17); Calcium 9.4 mg/dl (8.4-10.2); Carbon Dioxide 30 mmol/L (22.0-30.0); Creatinine Clearance Estimated 66 mL/min (50-200); Estimated Glomerular Filt Rate 77 ml/min (>60); GFR (African American) 93 ML/MIN (>60); Globulin 3.9 g/dL (1.3-3.2); Glucose 111 mg/dl (74-100); Hemoglobin 18.6 g/dL (12.2-16.2); Total Protein,Serum 8.1 g/dl (6.3-8.2)
[2023-04-20 01:10] LABS: Lipase 153 U/L (23-300)
[2023-04-20 01:23] LABS: Bacteria,Urine 1+ /lpf; RBC,Urine 20-50 #/hpf (0-3); WBC,Urine 20-50 #/hpf (0-3)
[2023-04-20 02:41] VITALS: BP 117/67; PULSE 57; RESP 14; TEMP 36.7; O2SAT 97
== END 2023-04-20 02:46 | disposition home or self-care (01) ==
PROVIDERS: Emergency Provider Emergency Medicine; PCP Emergency Medicine
DX: N10 Acute pyelonephritis (principal); B96.89 Other specified bacterial agents as the cause of diseases classified elsewhere; R10.31 Right lower quadrant pain; M54.59 Other low back pain; R11.0 Nausea; J44.9 Chronic obstructive pulmonary disease, unspecified; F17.210 Nicotine dependence, cigarettes, uncomplicated; I10 Essential (primary) hypertension; F41.9 Anxiety disorder, unspecified; F32.A Depression, unspecified; E66.9 Obesity, unspecified
CPT/HCPCS: 74176; 80053; 81001; 83690; 85025; 87086; 96361; 96365; 96375; 96376; 99285; J0696; J2405

== ENCOUNTER 2023-04-22 18:04 | Emergency (ER) | payer MEDICARE, SELFPAY ==
[2023-04-22 18:05] VITALS: BP 138/60; PULSE 65; RESP 16; TEMP 36.4; O2SAT 97; BMI 75.5
--- NOTE | 2023-04-22 18:24 | XR_ITS ---
PROCEDURE INFORMATION: Exam: XR Right Femur Exam date and time: 04/22/2023 6:34 PM Age: 47 years old Clinical indication: Pain; Hip; Right; Additional info: R hip pain TECHNIQUE: Imaging protocol: Radiologic exam of the right femur. Views: 1 view. COMPARISON: CR XR PELVIS 1-2V 04/22/2023 6:33 PM FINDINGS: Bones/joints: Mild degenerative changes involving the right hip and medial aspect of the right knee joint which is incompletely visualized. Soft tissues: Unremarkable. IMPRESSION: 1. No evidence of acute osseous injury. 2. Mild degenerative arthritic type changes involving the right hip and medial aspect of the right knee joint.
--- NOTE | 2023-04-22 18:24 | XR_ITS ---
PROCEDURE INFORMATION: Exam: XR Pelvis Exam date and time: 04/22/2023 6:33 PM Age: 47 years old Clinical indication: Pelvic pain; Additional info: Hip pain TECHNIQUE: Imaging protocol: Radiologic exam of the pelvis. Views: 1 or 2 view. COMPARISON: CT ABDOMEN PELVIS WO CON 04/20/2023 1:01 AM FINDINGS: Bones/joints: Unremarkable. No acute fracture. Soft tissues: Unremarkable. IMPRESSION: No acute findings.
[2023-04-22 18:41] LABS: Microscopic, Urine URINE MICROSCOPIC (MICROSCOPIC)
[2023-04-22 18:43] LABS: Appearance,Urine CLEAR (Clear); Bilirubin,Urine Negative (Negative); Blood, Urine 3+ (Negative); Color,Urine YELLOW (Yellow); Glucose,Urine (UA) Negative (Negative); Ketones,Urine Negative (Negative); Leukocyte Esterase,Urine 2+ (Negative); Nitrate,Urine POSITIVE (Negative); Protein,Urine 2+ (Negative); Specific Gravity, Urine 1.015 (1.005-1.030)
--- NOTE | 2023-04-22 19:10 | [facility].EDGENADL ---
Discharge Plan Disposition Patient Disposition: Home, Self-Care Condition: Good Chief Complaint: PAIN Prescriptions Prescriptions: No Action ProAir RespiClick 90 mcg/actuation aerosol powdr breath activated See Rx Instructions .ROUTE .COMPLEX Qty: 1 2RF Dose Instruction: INHALE 1 PUFF DAILY FOR COPD Rx Instructions: INHALE 1 PUFF DAILY FOR COPD budesonide-formoterol 160-4.5 mcg/actuation HFA aerosol inhaler 2 puff inhalation BID Qty: 10.2 2RF lisinopril-hydrochlorothiazide 20-25 mg tablet 1 tab PO BID 90 Days Qty: 180 0RF albuterol sulfate 2.5 mg /3 mL (0.083 %) solution for nebulization 2.5 mg INHALATION Q6H Qty: 75 2RF spironolactone [Aldactone] 25 mg tablet 25 mg PO DAILY Qty: 30 4RF duloxetine 30 mg capsule,delayed release(DR/EC) See Rx Instructions .ROUTE .COMPLEX Qty: 90 0RF Dose Instruction: TAKE 1 CAPSULE BY MOUTH ONCE DAILY Rx Instructions: TAKE 1 CAPSULE BY MOUTH ONCE DAILY cholecalciferol (vitamin D3) 1,250 mcg (50,000 unit) tablet 1,250 mcg PO WEEKLY Qty: 7 1RF cholecalciferol (vitamin D3) 50 mcg (2,000 unit) capsule 50 mcg PO DAILY 30 Days Qty: 30 3RF cefdinir 300 mg capsule 300 mg PO BID 10 Days Qty: 20 0RF ondansetron 4 mg tablet,disintegrating 4 mg PO Q8H 5 Days Qty: 15 0RF phenazopyridine [Pyridium] 200 mg tablet 200 mg PO Q8H PRN (Reason: pain) Qty: 10 0RF ketorolac 10 mg tablet 10 mg PO Q8H PRN (Reason: pain) Qty: 10 0RF amoxicillin-pot clavulanate 1 EACH tablet 1 tab PO BID Qty: 20 0RF hydrocodone-acetaminophen 1 EACH tablet 1 each PO Q6 Qty: 12 0RF cephalexin [cephalexin] 500 mg capsule 500 mg PO TID Qty: 30 0RF Referrals Follow up/Referrals: Treasure Streeter APRN [Primary Care Provider] - See instructions Clinical Impressions Clinical Impression: Pyelonephritis Instructions Patient Instructions: DI for Kidney Infection Discharge ED Provider: Salazar,Abhisek A General Adult HPI General Chief complaint: PAIN Stated complaint: RT hip pain Time Seen by Provider: 04/22/23 18:11 Mode of Arrival: Ambulatory Limitations: No Limitations Description of Symptoms (Recalled from ER Triage Doc. by RN): pt c/o rt hip pain since last wednesday. pt denies any trauma or accident. pt was seen in ER on 04/20 and diagnosed with UTI. History of Present Illness HPI narrative: Patient has a PMHx significant for morbid obesity, hypertension who presents to the ED with complaints of right hip/flank pain. Patient notes that since last Wednesday, she has been experiencing pain in her right hip. Patient notes that she is also having pain in her right flank with radiation down into her groin. Patient denies any recent trauma or accidents. Patient was seen in the ER on 1127 and was diagnosed with UTI. CT scan was notable for a renal stone, but nothing within urinary system. No hernia or bowel inflammation. Patient was discharged from the ED with p.o. antibiotics, Zofran, Toradol, Pyridium. Patient notes the patient has not worsened by any means but is still persistent despite 48 hours of pain. No fevers, vomiting Related Data Previous Rx's Medication Instructions Recorded albuterol sulfate 2.5 mg/3 mL 2.5 mg (3 mL) inhalation Q6H #75 mL 08/28/21 (0.083 %) solution for nebulization albuterol sulfate 90 mcg/actuation See Rx Instructions .Route 08/28/21 breath activated powder inhaler .COMPLEX #1 ea (ProAir RespiClick) budesonide-formoterol HFA 160 2 puff inhalation BID COPD #10.2 08/28/21 mcg-4.5 mcg/actuation aerosol grams inhaler lisinopril 20 1 tab PO BID bp 90 days #180 tabs 08/28/21 mg-hydrochlorothiazide 25 mg tablet duloxetine 30 mg capsule,delayed See Rx Instructions .Route 08/29/21 release .COMPLEX #90 caps spironolactone 25 mg tablet 25 mg PO DAILY #30 tabs 08/29/21 (Aldactone) cholecalciferol (vitamin D3) 1,250 1,250 mcg PO WEEKLY #7 tabs 09/05/21 mcg (50,000 unit) tablet cholecalciferol
[2023-04-22 19:17] LABS: Bacteria,Urine Trace /lpf; RBC,Urine 50-100 #/hpf (0-3)
[2023-04-22 20:25] VITALS: BP 140/60; PULSE 60; RESP 18; TEMP 36.5; O2SAT 98
== END 2023-04-22 20:26 | disposition home or self-care (01) ==
PROVIDERS: Emergency Provider Emergency Medicine; PCP Family Medicine
DX: N10 Acute pyelonephritis (principal); M25.551 Pain in right hip; R10.31 Right lower quadrant pain; E66.01 Morbid (severe) obesity due to excess calories; I10 Essential (primary) hypertension; F17.210 Nicotine dependence, cigarettes, uncomplicated; Z68.45 Body mass index [BMI] 70 or greater, adult
CPT/HCPCS: 72170; 73551; 81001; 87086; 99284

== ENCOUNTER → 2023-04-23 08:21 | Outpatient (CLI) | payer MEDICARE, SELFPAY | PROVIDERS: PCP Family Medicine; Visit Provider Family Medicine | DX: E11.9 Type 2 diabetes mellitus without complications (principal); Z79.84 Long term (current) use of oral hypoglycemic drugs ==

== ENCOUNTER → 2023-04-27 10:10 | Outpatient (CLI) | payer MEDICARE, SELFPAY ==
[2023-04-27 11:07] LABS: Basophils % 0.6 % (0.1-2.0); Eosinophils # 0.4 K/mm3 (0.0-0.4); Eosinophils % 5.3 % (0.1-12.0); Hematocrit 55.2 % (37.0-47.0); Lymphocytes # 1.7 K/mm3 (0.7-4.5); Lymphocytes % 25.5 % (10-50); Mean Corpuscular HGB Conc 32.9 g/dL (31.8-35.4); Mean Corpuscular Hemoglobin 31.1 pg (27.0-31.2); Mean Corpuscular Volume 94.5 fl (81-99); Mean Platelet Volume 9.3 fl (7.4-10.4); Monocytes # 0.4 K/mm3 (0.1-1.0); Monocytes % 6.1 % (1.7-9.3); Neutrophils # 4.3 K/mm3 (1.8-7.8); Neutrophils % 62.5 % (37.0-80.0); Platelet Count 146 K/mm3 (142-424); Red Blood Count 5.84 M/mm3 (4.20-5.40); Red Cell Distribution Width 14.7 % (11.5-17.5); White Blood Count 6.8 K/mm3 (4.8-10.8)
[2023-04-27 11:29] LABS: Alanine Aminotransferase 25 U/L (12-78); Albumin Level 4.1 g/dl (3.5-5.0); Albumin/Globulin Ratio 1.2 (1.1-1.8); Alkaline Phosphatase 99 U/L (38-126); Anion Gap 10.3 mEq/L (5-15); Aspartate Amino Transferase 32 U/L (14-36); Bilirubin,Total 0.6 mg/dl (0.2-1.3); Blood Urea Nitrogen 13 mg/dl (7-17); Calcium 8.9 mg/dl (8.4-10.2); Carbon Dioxide 26 mmol/L (22.0-30.0); Chloride 104 mmol/L (98-107); Estimated Glomerular Filt Rate 77 ml/min (>60); GFR (African American) 93 ML/MIN (>60); Globulin 3.5 g/dL (1.3-3.2); Glucose 91 mg/dl (74-100); Potassium 4.3 mmoL/L (3.5-5.1); Sodium 136 mmol/L (136-145); Total Protein,Serum 7.6 g/dl (6.3-8.2)
[2023-04-27 11:35] LABS: C-Reactive Protein 10.2 mg/L (0-4)
[2023-04-27 11:57] LABS: Erythrocyte Sedimentation Rate 4 mm/hr (0-20); Hemoglobin 18.1 g/dL (12.2-16.2)
[2023-04-28 12:27] LABS: Anti-Centromere B Antibodies <0.2 AI (0.0-0.9); Anti-Cyclic Citrullinated Pept 7 units (0-19); Anti-DNA (DS) Ab Qn 1 IU/mL (0-9); Anti-Jo-1 <0.2 AI (0.0-0.9); Anti-Smith Antibody <0.2 AI (0.0-0.9); Antichromatin Antibodies <0.2 AI (0.0-0.9); Antiscleroderma-70 Antibodies <0.2 AI (0.0-0.9); RNP Antibodies 0.2 AI (0.0-0.9); Sjogren's Anti-SS-A <0.2 AI (0.0-0.9); Sjogren's Anti-SS-B 0.4 AI (0.0-0.9)
[2023-04-28 13:17] LABS: RA Latex Turbid. <10.0 IU/mL (<14.0)
[2023-04-30 15:10] LABS: Lupus Reflex Interpretation Comment: (.); PTT-LA 38.8 sec (0.0-43.5); dRVVT 39.1 sec (0.0-47.0)
== END ==
PROVIDERS: PCP Family Medicine; Visit Provider Family Medicine
DX: M25.50 Pain in unspecified joint (principal); R21 Rash and other nonspecific skin eruption; R60.9 Edema, unspecified
CPT/HCPCS: 36415; 80053; 85025; 85613; 85651; 86140; 86200; 86225; 86235; 86431

== ENCOUNTER 2023-05-20 22:48 | Emergency (ER) | payer MEDICARE, SELFPAY ==
[2023-05-20 22:50] VITALS: BP 141/74; PULSE 76; RESP 16; TEMP 36.6; O2SAT 94; BMI 68.0
[2023-05-20 23:15] LABS: Microscopic, Urine URINE MICROSCOPIC (MICROSCOPIC)
[2023-05-20 23:15] LABS: Basophils # 0.1 K/mm3 (0-0.2); Basophils % 0.8 % (0.1-2.0); Eosinophils # 0.6 K/mm3 (0.0-0.4); Eosinophils % 3.9 % (0.1-12.0); Hematocrit 59.2 % (37.0-47.0); Lymphocytes # 4.6 K/mm3 (0.7-4.5); Lymphocytes % 27.3 % (10-50); Mean Corpuscular HGB Conc 31.8 g/dL (31.8-35.4); Mean Corpuscular Volume 97.3 fl (81-99); Mean Platelet Volume 9.1 fl (7.4-10.4); Monocytes # 0.4 K/mm3 (0.1-1.0); Monocytes % 2.5 % (1.7-9.3); Neutrophils # 10.9 K/mm3 (1.8-7.8); Neutrophils % 65.5 % (37.0-80.0); Platelet Count 271 K/mm3 (142-424); Red Blood Count 6.08 M/mm3 (4.20-5.40); Red Cell Distribution Width 15.7 % (11.5-17.5); White Blood Count 16.7 K/mm3 (4.8-10.8)
--- NOTE | 2023-05-20 23:16 | CT_ITS ---
PROCEDURE INFORMATION: Exam: CT Abdomen And Pelvis With Contrast Exam date and time: 05/20/2023 11:52 PM Age: 47 years old Clinical indication: Nausea and vomiting; Abdominal pain; Additional info: Severe abd pain/n/v TECHNIQUE: Imaging protocol: Computed tomography of the abdomen and pelvis with contrast. Radiation optimization: All CT scans at this facility use at least one of these dose optimization techniques: automated exposure control; mA and/or kV adjustment per patient size (includes targeted exams where dose is matched to clinical indication); or iterative reconstruction. Contrast material: ISOVUE; Contrast volume: 75 ml; Contrast route: IV; REPORTING DATA: Count of CT and Cardiac NM exams in prior 12 months: This patient has received [address] and 0 known cardiac nuclear medicine studies in the 12 months prior to the current study. COMPARISON: CT ABDOMEN PELVIS WO CON 04/20/2023 1:01 AM FINDINGS: Lungs: Mosaic attenuation noted at each lung base could reflect air trapping. No airspace disease. Heart: Heart size is normal. Liver: Normal attenuation liver measures 22.5 cm in length. Gallbladder and bile ducts: No regional inflammation. No calcified stones. No ductal dilation. Pancreas: Diffuse pancreatic edema. No evidence of pancreatic hemorrhage or necrosis. Spleen: Spleen measures 11.5 cm. Adrenal glands: Normal configuration. Kidneys and ureters: Left intrarenal calculus. No ureteral stones on either side. No evidence of renal obstruction. Stomach and bowel: Beam hardening artifact from patient habitus limits assessment of the colon within the pelvis. No obvious abnormality of the colon. Appendix: Appendix is not visualized as a discrete structure but there is no inflammation at the cecal base. Intraperitoneal space: There is low volume free fluid in the pelvis. Vasculature: Normal caliber arterial structures. Lymph nodes: No enlarged lymph nodes. Urinary bladder: Unremarkable as visualized. Reproductive: Uterus is enlarged measuring 12.6 x 9.3 x 6.8 cm for a volume 415 cc. No discrete uterine mass is appreciated. Bones/joints: No acute bony abnormality is appreciated. Soft tissues: Unremarkable. IMPRESSION: 1. Exam demonstrates findings of acute edematous pancreatitis. No evidence of pancreatic hemorrhage or necrosis. 2. Hepatomegaly. 3. Enlarged uterus without discrete mass. Findings could reflect adenomyosis. Correlate with any symptoms of menorrhagia.
[2023-05-20] MEDS: ACETAMINOPHEN 1,000MG/100ML VIAL 1000 MG IV (23:17)
[2023-05-20] MEDS: ONDANSETRON 4MG/2ML VIAL 4 MG IV (23:17)
[2023-05-20] MEDS: KETOROLAC 30MG/ML VIAL 15 MG IV (23:17)
[2023-05-20] MEDS: LACTATED RINGERS 1000ML 1,000 ML 999 ML IV (23:18)
[2023-05-20 23:19] LABS: Coronavirus 19, PCR Not Detected (NotDetected); Influenza A, PCR Not Detected (NotDetected); Influenza B, PCR Not Detected (NotDetected)
[2023-05-20 23:20] LABS: Appearance,Urine SL CLOUDY (Clear); Blood, Urine 3+ (Negative); Color,Urine DARK YELLOW (Yellow); Glucose,Urine (UA) TRACE (Negative); Ketones,Urine TRACE (Negative); Leukocyte Esterase,Urine 2+ (Negative); Nitrate,Urine POSITIVE (Negative); Protein,Urine 3+ (Negative)
[2023-05-20 23:22] LABS: Chloride 97 mmol/L (98-107); Hemoglobin 18.8 g/dL (12.2-16.2); Sodium 138 mmol/L (136-145)
[2023-05-20 23:23] LABS: MANUAL DIFFERENTIAL MANUAL DIFFERENTIAL (MANUAL DIFF); Potassium 3.1 mmoL/L (3.5-5.1)
[2023-05-20 23:25] LABS: Alanine Aminotransferase 390 U/L (12-78); Albumin Level 4.1 g/dl (3.5-5.0); Alkaline Phosphatase 262 U/L (38-126); Anion Gap 13.1 mEq/L (5-15); Aspartate Amino Transferase 581 U/L (14-36); Bilirubin,Total 3.1 mg/dl (0.2-1.3); Blood Urea Nitrogen 19 mg/dl (7-17); Calcium 9.2 mg/dl (8.4-10.2); Carbon Dioxide 31 mmol/L (22.0-30.0); Creatinine Clearance Estimated 48 mL/min (50-200); Estimated Glomerular Filt Rate 53 ml/min (>60); GFR (African American) 64 ML/MIN (>60); Glucose 182 mg/dl (74-100); Total Protein,Serum 8.1 g/dl (6.3-8.2)
[2023-05-20 23:31] VITALS: BP 143/77; RESP 16; O2SAT 95
[2023-05-20 23:39] LABS: Eosinophils % 4 % (0-3); Lymphocytes % 23 % (10-50); Macrocytosis 1+; Monocytes % 2 % (2-9); Neutrophils % 71 % (42-76); Platelet Estimate Normal; Total Cells Counted 100
--- NOTE | 2023-05-20 23:39 | HMH.EDGENADL ---
Discharge Plan Disposition Patient Disposition: Xfer Short-Term Hosp Condition: Fair Prescriptions Prescriptions: No Action acyclovir 5 % cream 1 applic topical 5XD 4 Days Qty: 5 0RF metformin 500 mg tablet 500 mg PO BID Qty: 60 2RF Ozempic 0.25 mg or 0.5 mg (2 mg/3 mL) pen injector 0.25 mg SQ WEEKLY Qty: 3 2RF Rx Instructions: for 4 weeks budesonide-formoterol 160-4.5 mcg/actuation HFA aerosol inhaler 2 puff inhalation BID Qty: 10.2 2RF ProAir RespiClick 90 mcg/actuation aerosol powdr breath activated See Rx Instructions .ROUTE .COMPLEX Qty: 1 2RF Dose Instruction: INHALE 1 PUFF DAILY FOR COPD Rx Instructions: INHALE 1 PUFF DAILY FOR COPD lisinopril-hydrochlorothiazide 20-25 mg tablet 1 tab PO BID 90 Days Qty: 180 0RF albuterol sulfate 2.5 mg /3 mL (0.083 %) solution for nebulization 2.5 mg INHALATION Q6H Qty: 75 2RF spironolactone [Aldactone] 25 mg tablet 25 mg PO DAILY Qty: 30 4RF Metamucil 3.4 gram/5.4 gram powder 1 tbsp PO DAILY Qty: 660 0RF Rx Instructions: mix into at least 8 oz of water or juice before administering ketorolac 10 mg tablet 10 mg PO Q8H PRN (Reason: pain) Qty: 10 0RF Referrals Follow up/Referrals: Treasure Streeter RN [Primary Care Provider] - See instructions Clinical Impressions Clinical Impression: Acute pancreatitis, Transaminitis, Hyperbilirubinemia, Hypokalemia, ZAIRE (acute kidney injury) Stand Alone Forms Stand Alone Forms: Transfer Record - ED Instructions Patient Instructions: DI for Acute Abdominal Pain Discharge ED Provider: Alessandra Dobson General Adult HPI General Chief complaint: Abdominal Pain Stated complaint: vomiting, fever Time Seen by Provider: 05/20/23 23:05 Mode of Arrival: Wheelchair Source of Information: Patient Limitations: No Limitations Description of Symptoms (Recalled from ER Triage Doc. by RN): pt states she ate vietnamese @ 2pm and @ 9pm began with n/v/d and abd pain. History of Present Illness HPI narrative: This patient is a 47-year-old female with a history of morbid obesity, hypertension, and prediabetes, COPD, and pyelonephritis presenting to the emergency department for evaluation with concern for upper abdominal pain, nausea, vomiting, and diarrhea that started around 9 PM. She states she ate Congolese food around 2 PM and is concerned she could have gotten food poisoning. Emesis is nonbloody nonbilious, and diarrhea is nonbloody. She denies any prior abdominal issues or surgeries. History is limited given how uncomfortable the patient is. Related Data Previous Rx's Medication Instructions Recorded albuterol sulfate 2.5 mg/3 mL 2.5 mg (3 mL) inhalation Q6H #75 mL 08/28/21 (0.083 %) solution for nebulization albuterol sulfate 90 mcg/actuation See Rx Instructions .Route 08/28/21 breath activated powder inhaler .COMPLEX #1 ea (ProAir RespiClick) lisinopril 20 1 tab PO BID bp 90 days #180 tabs 08/28/21 mg-hydrochlorothiazide 25 mg tablet ketorolac 10 mg tablet 10 mg PO Q8H PRN pain #10 tabs 04/20/23 psyllium husk 3.4 gram/5.4 gram 1 tbsp PO DAILY constipation #660 04/23/23 oral powder (Metamucil) grams spironolactone 25 mg tablet 25 mg PO DAILY #30 tabs 04/23/23 (Aldactone) acyclovir 5 % topical cream 1 applic topical 5XD 4 days #5 04/26/23 grams budesonide-formoterol HFA 160 2 puff inhalation BID COPD #10.2 04/26/23 mcg-4.5 mcg/actuation aerosol grams inhaler metformin 500 mg tablet 500 mg PO BID #60 tabs 04/26/23 semaglutide 0.25 mg or 0.5 mg (2 0.25 mg (0.368 mL) SQ WEEKLY #3 mL 04/26/23 mg/3 mL) subcutaneous pen injector (Ozempic) Allergies Allergy/AdvReac Type Severity Reaction Status Date / Time No Known Allergies Allergy Verified 04/26/23 13:21 [facility] Disclaimer: The information contained in this section may have been updated after the patient was seen, as this information can be updated by other users. Medical History Hypertension Smoker Tobacco abuse Social History Smoking Status: Current every day smoker tobacco type: cigarettes packs per day: 2 alcohol intake: never substance use type: marijuana current occupational status: unemployed Travel in the last 8 weeks: Inside the [place] household members: family housing: apartment ROS Obtained: Yes All systems reviewed & no additional complaints except as documented Physical Exam General General appearance: alert, in distress (Mild distress secondary to pain) and obese Head Head exam: atraumatic and normocephalic Eye Eye exam: Present normal appearance, PERRL and EOMI ENT ENT exam: Present normal exam, normal oropharynx, mucous membranes moist and normal external ear exam Neck Neck exam: Present normal inspection, full ROM and trachea midline; Absent tenderness Chest Chest inspection: Present normal inspection and symmetric chest wall rise; Absent tenderness Respiratory Respiratory exam: Present normal lung sounds bilaterally; Absent respiratory distress, wheezes, stridor or accessory muscle use Cardiovascular Cardiovascular exam: Present normal rhythm and tachycardia Abdominal Exam Abdominal exam: Present soft, tenderness (Upper abdomen) and normal bowel sounds; Absent distention, guarding, rebound or rigidity Extremities Exam Extremities exam: Present normal inspection, full ROM and normal capillary refill; Absent tenderness or edema Back Exam Back exam: Present normal inspection and full ROM; Absent tenderness Neurological Exam Neurological exam: Present alert, oriented X3, CN II-XII intact and normal gait; Absent motor sensory deficit Psychiatric Psychiatric exam: Present anxious Skin Skin exam: Present warm and dry Medical Decision Making Medical Records Medical records reviewed: Yes I reviewed the patient's medical records. [place] Inquiry Pt receiving controlled substance: No Vital Signs: 05/20/23 22:50 05/20/23 23:31 05/21/23 00:45 Temperature 97.8 F Temperature Source Oral Pulse Rate 81 Pulse Rate [Right] 76 Respiratory Rate 16 16 19 Blood Pressure 143/77 H 141/93 H Blood Pressure [Right Arm] 141/74 H Blood Pressure Mean [Right Arm] 96 02 Sat by Pulse Oximetry 94 L 95 93 L Lab Data Lab results reviewed: Yes I reviewed the patient's lab results. Lab Results 05/20/23 23:08: Urine Color Dark yellow, Urine Appearance Sl cloudy, Urine pH 7.0, Ur Specific [place] 1.020, Urine Protein 3+, Urine Glucose (UA) Trace, Urine Ketones Trace, Urine Blood 3+, Urine Nitrate Positive, Urine Bilirubin 3+ A, Urine Urobilinogen 2.0, Ur Leukocyte Esterase 2+ A, Urine RBC 10-20, Urine WBC 20-50, Ur Squamous Epith Cells 3-5, Urine Bacteria 2+ 05/20/23 23:10: WBC 16.7 H, RBC 6.08 H, Hgb 18.8 H, Hct 59.2 H, MCV 97.3, MCH 31.0, MCHC 31.8, RDW 15.7, Plt Count 271, MPV 9.1, Neut % (Auto) 65.5, Lymph % (Auto) 27.3, [place] % (Auto) 2.5, Eos % (Auto) 3.9, Baso % (Auto) 0.8, Neut # (Auto) 10.9 H, Lymph # (Auto) 4.6 H, [place] # (Auto) 0.4, Eos # (Auto) 0.6 H, Baso # (Auto) 0.1, Total Counted 100, Neutrophils % (Manual) 71, Lymphocytes % (Manual) 23, Monocytes % (Manual) 2, Eosinophils % (Manual) 4 H, Platelet Estimate Normal, Macrocytosis 1+, Sodium 138, Potassium 3.1 L, Chloride 97 L, Carbon Dioxide 31 H, Anion Gap 13.1, BUN 19 H, Creatinine 1.10 H, Estimated Creat Clear 48, Estimated GFR 53 L, Est GFR ( Amer) 64, Glucose 182 H, Calcium 9.2, Total Bilirubin 3.1 H, AST 581 H*, ALT 390 H*, Alkaline Phosphatase 262 H, Total Protein 8.1, Albumin 4.1, Globulin 4.0 H, Albumin/Globulin Ratio 1.0 L, Lipase 83033 H 05/20/23 23:14: SARS-CoV-2 (PCR) Not detected, Influenza A Untype (PCR) Not detected, Influenza Type B (PCR) Not detected 05/21/23 00:00: PT 11.2, INR 1.04 05/20/23 23:10 05/20/23 23:10 Orders (Tests/Meds): ED MEDICATIONS Generic Name Dose Route Start Last Admin Trade Name Freq PRN Reason Stop Dose Admin Sodium Chloride 1,000 mls @ 125 mls/hr 05/21/23 02:15 Sod Chlor 0.9% 1000ml Bag IV 06/20/23 02:14 .Q8H HELDER Discontinued Medications Generic Name Dose Route Start Last Admin Trade Name [place] PRN Reason Stop Dose Admin Acetaminophen 1,000 mg 05/20/23 23:08 05/20/23 23:17 Acetaminophen 1,000mg/100ml Vial IV 05/20/23 23:09 1,000 mg ONCE ONE Administration Hydromorphone HCl 1 mg 05/21/23 00:30 05/21/23 00:40 Hydromorphone 2mg/Ml Syringe IV 05/21/23 00:31 1 mg ONCE ONE Administration Lactated Ringer's 1,000 mls @ 999 mls/hr 05/20/23 23:08 05/20/23 23:18 Lactated Ringer's 1000 Ml Bag IV 05/21/23 00:08 999 mls/hr .Q1H1M ONE Administration Sodium Chloride 1,000 mls @ 999 mls/hr 05/21/23 00:26 05/21/23 00:40 Sod Chlor 0.9% 1000ml Bag IV 05/21/23 01:26 999 mls/hr .Q1H1M ONE Administration Iopamidol 75 ml 05/21/23 00:00 05/21/23 00:01 Iopamidol-370 (76%);100ml Bottle IV 05/21/23 00:01 75 ml ONCE ONE Administration Ketorolac Tromethamine 15 mg 05/20/23 23:08 05/20/23 23:17 Ketorolac 30mg/Ml Vial IV 05/20/23 23:09 15 mg ONCE ONE Administration Ondansetron HCl 4 mg 05/20/23 23:08 05/20/23 23:17 Ondansetron 4mg/2ml Vial IV 05/20/23 23:09 4 mg ONCE ONE Administration Promethazine HCl 12.5 mg 05/21/23 00:30 05/21/23 00:39 Promethazine Hcl 25mg/Ml 1ml Vial IV 05/21/23 00:31 12.5 mg ONCE ONE Administration Sodium Chloride 10 ml 05/21/23 00:00 05/21/23 00:01 Sodium Chloride 0.9% 10ml Syr (Rad Only) IV 05/21/23 00:01 10 ml ONCE ONE Administration Sodium Chloride 25 ml 05/21/23 00:30 05/21/23 00:40 Sodium Chloride 0.9% 25ml Bag IV 05/21/23 00:31 25 ml ONCE ONE Administration ORDERS Category Date Time Status CT abdomen pelvis w con Stat Cat Scan 05/20/23 23:16 Completed CMP [Comprehensive Metabolic Panel] Stat Lab 05/20/23 23:10 Completed Complete Blood Count Auto Diff Stat Lab 05/20/23 23:10 Completed Lipase Stat Lab 05/20/23 23:10 Completed Prothrombin Time INR Stat Lab 05/21/23 00:00 Completed Rapid PCR Covid and Flu A/B Stat Lab 05/20/23 23:14 Completed Urinalysis and Microscopic Stat Lab 05/20/23 23:08 Completed Urine Culture Stat Micro 05/20/23 23:08 Received Medical Decision Narrative: In summary, this patient is a 47-year-old female presenting to the Emergency Department for evaluation of abdominal pain, nausea, vomiting, and diarrhea that started 9 PM. Differential diagnoses considered include but are not limited to viral gastroenteritis, bacterial gastroenteritis, hepatitis, cholecystitis, pancreatitis. Ruling out the most morbid conditions drove assessment. It should be noted patient's history includes obesity, prediabetes, hypertension which may or may not be at goal therapy. This complicates all aspects of care by increasing patient's risk for morbidity. I reviewed patient's past medical records and noted previous evaluations with diagnosis of pyelonephritis in the past. On exam, the patient is very uncomfortable appearing and has upper abdominal tenderness. Workup included CBC, CMP, lipase, lactic acid, urinalysis, and CT abdomen pelvis with IV contrast. She is given a bolus of IV fluids as well as IV acetaminophen, Toradol, and Zofran. I independently interpreted CT scan prior to the radiologist read and noted necrotic fat stranding. Please see their read for final interpretation. Labs were obtained that demonstrated lipase greater than 40,000, significant transaminitis, and hyperbilirubinemia. She also has hypokalemia and an ZAIRE. She was given 2 L bolus of IV fluids in total as well as IV Dilaudid and Phenergan for continued pain and nausea. I considered administering antibiotics including IV Zosyn, however this was deferred at this time as the patient is afebrile with no abscesses, necrosis, or other concerns noted on imaging. We are continuing to monitor at this time. Given that patient has acute pancreatitis as well as transaminitis and hyperbilirubinemia, concern for possible obstructive process. INR is normal; MELD score is 12. Radiology notes no significant biliary ductal dilatation or gallstones, however we do not have the capability to do formal ultrasound of the right upper quadrant here at night and body habitus severely limits bedside ultrasound. We do not have gastroenterology here should the patient need ERCP, MRCP, or other intervention, so initiated conversations with other hospitals nearby for the possibility of transfer. We called left point with [facility], [facility], [facility], [facility], and [facility] and had indirect discussions with the transfer centers and providers at each of these. The patient was able to be waitlisted at [facility] per hospitalist Dr. Linton, however no other facilities were able to accept her for transfer, as they do not have beds or are on divert. I did call and have an interactive discussion with [facility] at Dr. Strauss who graciously accepted the patient for medicine transfer. Patient is agreeable to transfer to [facility]. She was started on maintenance IV fluids at 125mL/hr, given her degree of pancreatitis, ZAIRE, and the fact that she appears clinically dehydrated. EMS transport was arranged, and the patient was transported in stable condition for further evaluation and management. Critical Care Critical Care Time Critical Care Time: No
[2023-05-20 23:44] LABS: Bilirubin,Urine 3+ (Negative)
[2023-05-20 23:46] LABS: Bacteria,Urine 2+ /lpf; WBC,Urine 20-50 #/hpf (0-3)
[2023-05-21] MEDS: IOPAMIDOL-370 (76%);100ML BOTTLE 75 ML IV (00:01)
[2023-05-21] MEDS: SODIUM CHLORIDE 0.9% 10ML SYR (RAD ONLY) 10 ML IV (00:01)
[2023-05-21 00:25] LABS: Lipase 40427 U/L (23-300)
[2023-05-21] MEDS: PROMETHAZINE HCL 25MG/ML 1ML VIAL 12.5 MG IV (00:39)
[2023-05-21] MEDS: HYDROMORPHONE 2MG/ML SYRINGE 1 MG IV ×2 (00:40→04:04)
[2023-05-21] MEDS: SODIUM CHLORIDE 0.9% 25ML BAG 25 ML IV (00:40)
[2023-05-21] MEDS: 0.9 % SODIUM CHLORIDE 1000ML 1,000 ML 999 ML IV (00:40)
[2023-05-21 00:45] VITALS: BP 141/93; PULSE 81; RESP 19; O2SAT 93
--- NOTE | 2023-05-21 01:00 | PC.NURSE ---
[facility] has no gi coverage for weekend. shahla with transfer center is checking with [facility].
--- NOTE | 2023-05-21 01:03 | PC.NURSE ---
no bed avail at [facility]
--- NOTE | 2023-05-21 01:05 | PC.NURSE ---
call placed to [facility]. waiting on GI return call
--- NOTE | 2023-05-21 01:23 | PC.NURSE ---
Called for possible transfer .
--- NOTE | 2023-05-21 01:26 | PC.NURSE ---
called [facility] for possible transfer, hospitalist will call back to be put on wait list.
[2023-05-21 01:37] LABS: INR 1.04 (0.9-1.1); Prothrombin Time 11.2 seconds (10.1-12.5)
--- NOTE | 2023-05-21 01:41 | PC.NURSE ---
speaking with dr hdz from [facility]
--- NOTE | 2023-05-21 01:42 | PC.NURSE ---
placed on [facility] wait list
--- NOTE | 2023-05-21 01:50 | PC.NURSE ---
Called for possible transfer, waiting for call back.
--- NOTE | 2023-05-21 01:51 | PC.NURSE ---
received call back from md olena speaking with gi at this time
--- NOTE | 2023-05-21 01:54 | PC.NURSE ---
uk on diversion status, unable to accept at t his time.
--- NOTE | 2023-05-21 01:55 | PC.NURSE ---
called back with all information, awaiting call back from provider.
--- NOTE | 2023-05-21 01:58 | PC.NURSE ---
o/p with [facility] at this time.
--- NOTE | 2023-05-21 02:02 | PC.NURSE ---
accepted by dr silva for medicine; condition on if they have a bed available.
--- NOTE | 2023-05-21 02:10 | PC.NURSE ---
notified [facility] that pt is ready to transport to
--- NOTE | 2023-05-21 02:13 | PC.NURSE ---
Report called to SALINA Mendez at [facility] unit [address] for room 8151. [phone]
[2023-05-21 02:15] VITALS: BP 143/91; PULSE 86; RESP 18; TEMP 36.6; O2SAT 94
--- NOTE | 2023-05-21 02:45 | PC.NURSE ---
received phone call from Gisel Euceda wooden[employer] assembl[employer] [facility] asking if about patient diagnosis and reason for transfer and if possible to delay transfer. Phone call was transfered to [employer] worker Beata Morales
--- NOTE | 2023-05-21 02:50 | PC.NURSE ---
Transport has been notified. lab director was contacted and he is coming in to take this transfer, so there will be a delay in transport arriving to pickup patient. Attending notified
--- NOTE | 2023-05-21 03:56 | PC.NURSE ---
Transport here for patient. RN to Medic handoff given to Alexandr EMT-P
[2023-05-21] MEDS: 0.9 % SODIUM CHLORIDE 1000ML 1,000 ML 125 ML IV (04:04)
--- NOTE | 2023-05-24 06:22 | PC.NURSE ---
chart accessed for update to [facility]
--- NOTE | 2023-05-27 15:55 | PC.NURSE ---
DR DUMONT GIVEN URINE CULTURE RESULTS, CONTAMINATED. NO NEW ORDERS
== END 2023-05-21 04:05 | disposition short-term general hospital (02) ==
PROVIDERS: Emergency Provider Emergency Medicine
DX: K85.90 Acute pancreatitis without necrosis or infection, unspecified (principal); N17.9 Acute kidney failure, unspecified; E87.6 Hypokalemia; R74.01 Elevation of levels of liver transaminase levels; E80.6 Other disorders of bilirubin metabolism; F17.210 Nicotine dependence, cigarettes, uncomplicated
CPT/HCPCS: 74177; 80053; 81001; 83690; 85007; 85025; 85610; 87086; 87636; 96361; 96374; 96375; 99285; J0131; J2405; Q9967

== ENCOUNTER 2023-05-27 09:57 | Outpatient (CLI) | payer MEDICARE, SELFPAY ==
[2023-05-27 19:00] LABS: Creatinine,Urine Random 43 mg/dL (Not Estab.); Microalbumin/Creatinine Ratio 600.2
[2023-05-27 19:29] LABS: Amphetamine/Metha Screen,Urine Negative ng/ml (<1000); Barbiturates Screen,Urine Negative ng/ml (<200); Benzodiazepines Screen,Urine Negative ng/ml (<200); Cannabinoid Screen,Urine Positive ng/ml (<50); Cocaine Screen,Urine Negative ng/ml (<300); Methadone Screen,Urine Negative ng/ml (<300); Opiate Screen,Urine Negative ng/ml (<300); Phencyclidine Screen,Urine Negative ng/ml (<25)
== END 2023-05-28 23:59 | disposition home or self-care (01) ==
PROVIDERS: PCP Family Medicine; Visit Provider Family Medicine
DX: R73.03 Prediabetes (principal); Z79.899 Other long term (current) drug therapy
CPT/HCPCS: 80307; 82043; 82570

== ENCOUNTER 2023-05-28 11:10 | Outpatient (CLI) | payer MEDICARE, SELFPAY ==
--- NOTE | 2023-05-28 11:15 | XR_ITS ---
FINAL REPORT CLINICAL HISTORY: knee pain FINDINGS: Left knee Two views were obtained. There is no acute fracture or dislocation. There are mild and moderate degenerative changes. No soft tissue abnormality is identified. IMPRESSION: Degenerative changes as above. Reviewed, Interpreted and Dictated by Elijah Millan III, MD Transcribed by Elissa Escalona Authenticated and . [facility]
--- NOTE | 2023-05-28 11:15 | XR_ITS ---
FINAL REPORT CLINICAL HISTORY: knee pain FINDINGS: Right knee Two views were obtained. There is no acute fracture or dislocation. There are mild and moderate degenerative changes. Small joint effusion is identified. IMPRESSION: Degenerative changes with small joint effusion. Reviewed, Interpreted and Dictated by Elijah Millan III, MD Transcribed by Elissa Escalona Authenticated and . [facility]
[2023-05-28 12:19] LABS: Basophils # 0.1 K/mm3 (0-0.2); Basophils % 0.9 % (0.1-2.0); Eosinophils # 0.6 K/mm3 (0.0-0.4); Eosinophils % 4.9 % (0.1-12.0); Hematocrit 55.7 % (37.0-47.0); Hemoglobin 17.1 g/dL (12.2-16.2); Lymphocytes # 2.9 K/mm3 (0.7-4.5); Lymphocytes % 22.9 % (10-50); Mean Corpuscular HGB Conc 30.7 g/dL (31.8-35.4); Mean Corpuscular Hemoglobin 30.4 pg (27.0-31.2); Monocytes # 0.6 K/mm3 (0.1-1.0); Monocytes % 4.4 % (1.7-9.3); Neutrophils # 8.4 K/mm3 (1.8-7.8); Neutrophils % 66.9 % (37.0-80.0); Platelet Count 283 K/mm3 (142-424); Red Blood Count 5.63 M/mm3 (4.20-5.40); Red Cell Distribution Width 15.7 % (11.5-17.5); White Blood Count 12.5 K/mm3 (4.8-10.8)
[2023-05-28 14:09] LABS: Alanine Aminotransferase 55 U/L (12-78); Aspartate Amino Transferase 48 U/L (14-36); Bilirubin,Unconjugated 0.6 mg/dL (0.0-1.1)
[2023-05-28 14:10] LABS: Albumin Level 3.8 g/dl (3.5-5.0); Alkaline Phosphatase 116 U/L (38-126); Bilirubin,Direct 0.2 mg/dl (0.0-0.4); Bilirubin,Indirect 0.7 mg/dL (0.0-0.9); Bilirubin,Total 0.9 mg/dl (0.2-1.3); Cholesterol 203 mg/dl (140-200); HDL Cholesterol 27 mg/dl (40-60); Total Protein,Serum 7.2 g/dl (6.3-8.2); Triglycerides 185 mg/dl (30-150); VLDL Cholesterol 37 mg/dL (0-40)
[2023-05-28 14:11] LABS: Chol/HDL Ratio 7.5 (1-3.5)
[2023-05-28 14:20] LABS: NT Pro Brain Natriuretic Pep. 367 pg/mL (0-125)
[2023-05-28 14:21] LABS: Direct LDL Cholesterol 111.29 mg/dL (100-129)
[2023-05-28 14:41] LABS: Thyroid Stimulating Hormone 6.29 uIU/mL (0.465-4.68)
[2023-05-31 13:48] LABS: Anti-DNA (DS) Ab Qn 1 IU/mL (0-9)
== END 2023-05-28 23:59 ==
LOC: RAD 11:12
PROVIDERS: PCP Family Medicine; Visit Provider Family Medicine
DX: F41.9 Anxiety disorder, unspecified; I10 Essential (primary) hypertension; E80.6 Other disorders of bilirubin metabolism; I51.89 Other ill-defined heart diseases; K85.90 Acute pancreatitis without necrosis or infection, unspecified; R74.01 Elevation of levels of liver transaminase levels; M25.50 Pain in unspecified joint; R60.9 Edema, unspecified; D58.2 Other hemoglobinopathies; R06.02 Shortness of breath; M25.561 Pain in right knee; M25.562 Pain in left knee; R73.03 Prediabetes; Z79.899 Other long term (current) drug therapy
CPT/HCPCS: 36415; 73560; 80061; 80076; 83880; 84443; 85025; 86225

== ENCOUNTER 2023-06-07 13:41 | Outpatient (CLI) | payer MEDICARE, SELFPAY ==
--- NOTE | 2023-06-07 13:41 | CA_ITS ---
APPROVED REPORT EXAM: Comprehensive 2D, Doppler, and color-flow Echocardiogram Publications Distribution Clerk: Inez Cabrera RDCS Ht: 5 ft 1 in Wt: 371lbs BSA: 2.46 BP: 136/76 mmHg Indications: CHF,COPD,HTN,SOA 2D Dimensions Left Atrium 4.20 cm F: 2.7 - 3.8 EF AP4 53.70 % LVOT 2.08 cm (M/F) 1.5-2.5 GL Strain -17.3 % M-Mode Dimensions RVDd 2.86 cm (0.9-2.6) LVDd 5.28 cm (3.5-5.7) Ao Diam 2.87 cm (2.0-3.7) LVDs 3.71 cm (3.5-5.7) IVSd 0.64 cm (0.6-1.1) PWd 0.68 cm (0.6-1.1) EF (Teich) 56.40% FS 29.70% EDV (Teich) 134.20 mL ESV (Teich) 58.50 mL LV Diastology E Decel Time 383 (160-240 msec) E/A Ratio 0.8 MED E' 10.2 (>= 7 cm/sec) E'/MED E' Ratio 8.37 (<= 14) LAT E' 9.4 (>= 10 cm/sec) E/LAT E' Ratio 9.09 (<= 14) Aortic Valve LVOT Max 145.0 (70-110 cm/s) JASS Index 1.19 cm2/m2 LVOT VTI 27.14 cm AoV Peak Giovanni. 202.0 (50-130 cm/s) AO Mean GR. 8.10 (<5 mmHg) AO VTI 31.5 (18-25 cm) JASS (VTI) 2.93 (2.5-4.5 cm2) Mitral Valve MV E Max Giovanni. 85.0 (40-130 cm/s) MV A Velocity 106.0 (40-130 cm/s) E/A Ratio 0.80 MV Decel. Time 383 (160-240 ms) Left Ventricle The left ventricle is normal size. The left ventricular systolic function is normal. The left ventricular ejection fraction is within the normal range. There is normal left ventricular wall thickness. There is normal LV segmental wall motion. The left ventricular diastolic function is normal. LVEF is 55%. Right Ventricle The right ventricle is mildly dilated. The right ventricle is mildly hypokinetic. Atria The left atrium size is normal. The right atrium is mildly dilated. Aortic Valve The aortic valve is mildly thickened. There is no aortic valvular stenosis. No aortic regurgitation is present. Mitral Valve Mild mitral annular calcification. The mitral valve is mildly thickened. No evidence of mitral valve stenosis. Trace mitral regurgitation. Tricuspid Valve The tricuspid valve leaflets are thin and pliable. Trace tricuspid regurgitation. There is insufficient jet to estimate RVSP. Pulmonic Valve The pulmonary valve is normal in structure. Trace pulmonic regurgitation. Great Vessels The aortic root is normal in size. The ascending aorta is normal in size. IVC is normal in size and collapses >50% with inspiration. Pericardium There is no pericardial effusion. Other Information Study Quality: Fair Conclusion Normal LV systolic function. Mild RV dilation with mild reduction in RV function. No significant valvular stenosis or regurgitation. Electronically signed by : Nicole De La Fuente MD 06/10/2023 03:05:46
== END 2023-06-07 23:59 ==
LOC: RT 13:41
PROVIDERS: PCP Family Medicine; Visit Provider Family Medicine
DX: R06.09 Other forms of dyspnea (principal); I51.89 Other ill-defined heart diseases; R60.9 Edema, unspecified
CPT/HCPCS: 93306

== ENCOUNTER → 2023-06-30 07:22 | Outpatient (CLI) | payer MEDICARE, SELFPAY | PROVIDERS: PCP Family Medicine; Visit Provider Family Medicine | DX: G47.36 Sleep related hypoventilation in conditions classified elsewhere; R06.83 Snoring; I51.89 Other ill-defined heart diseases; R60.0 Localized edema; G47.30 Sleep apnea, unspecified | CPT/HCPCS: G0399 ==

== ENCOUNTER 2023-07-05 13:29 | Outpatient (CLI) | payer MEDICARE, SELFPAY ==
[2023-07-05 13:49] LABS: Basophils % 0.3 % (0.1-2.0); Eosinophils # 1.2 K/mm3 (0.0-0.4); Hematocrit 50.5 % (37.0-47.0); Hemoglobin 16.3 g/dL (12.2-16.2); Lymphocytes # 3.5 K/mm3 (0.7-4.5); Lymphocytes % 31.5 % (10-50); Mean Corpuscular HGB Conc 32.4 g/dL (31.8-35.4); Mean Corpuscular Hemoglobin 31.5 pg (27.0-31.2); Mean Corpuscular Volume 97.5 fl (81-99); Mean Platelet Volume 9.8 fl (7.4-10.4); Monocytes # 0.5 K/mm3 (0.1-1.0); Monocytes % 4.7 % (1.7-9.3); Neutrophils # 5.8 K/mm3 (1.8-7.8); Neutrophils % 52.5 % (37.0-80.0); Platelet Count 205 K/mm3 (142-424); Red Blood Count 5.18 M/mm3 (4.20-5.40); Red Cell Distribution Width 15.3 % (11.5-17.5)
[2023-07-05 14:57] LABS: Alanine Aminotransferase 19 U/L (12-78); Albumin Level 3.8 g/dl (3.5-5.0); Albumin/Globulin Ratio 1.2 (1.1-1.8); Alkaline Phosphatase 117 U/L (38-126); Anion Gap 10.9 mEq/L (5-15); Aspartate Amino Transferase 26 U/L (14-36); Bilirubin,Direct 0.3 mg/dl (0.0-0.4); Bilirubin,Indirect 0.2 mg/dL (0.0-0.9); Bilirubin,Total 0.5 mg/dl (0.2-1.3); Bilirubin,Unconjugated 0.2 mg/dL (0.0-1.1); Blood Urea Nitrogen 13 mg/dl (7-17); Calcium 9.3 mg/dl (8.4-10.2); Carbon Dioxide 27 mmol/L (22.0-30.0); Chloride 105 mmol/L (98-107); Estimated Glomerular Filt Rate 77 ml/min (>60); GFR (African American) 93 ML/MIN (>60); Globulin 3.3 g/dL (1.3-3.2); Glucose 91 mg/dl (74-100); Potassium 4.9 mmoL/L (3.5-5.1); Sodium 138 mmol/L (136-145); Total Protein,Serum 7.1 g/dl (6.3-8.2)
== END 2023-07-05 23:59 ==
LOC: LAB.DROPOF 13:29
PROVIDERS: PCP Family Medicine; Visit Provider Family Medicine
DX: D75.1 Secondary polycythemia (principal); R74.8 Abnormal levels of other serum enzymes
CPT/HCPCS: 80053; 80076; 85025

== ENCOUNTER 2024-01-28 09:39 | Outpatient (CLI) | payer MEDICARE, SELFPAY ==
[2024-01-28 18:05] LABS: Basophils # 0.2 K/mm3 (0-0.2); Basophils % 2.1 % (0.1-2.0); Eosinophils # 0.5 K/mm3 (0.0-0.4); Eosinophils % 4.7 % (0.1-12.0); Hematocrit 59.1 % (37.0-47.0); Lymphocytes # 2.6 K/mm3 (0.7-4.5); Lymphocytes % 23.2 % (10-50); Mean Corpuscular HGB Conc 30.7 g/dL (31.8-35.4); Mean Corpuscular Hemoglobin 30.1 pg (27.0-31.2); Mean Corpuscular Volume 97.8 fl (81-99); Mean Platelet Volume 10.2 fl (7.4-10.4); Monocytes # 0.8 K/mm3 (0.1-1.0); Monocytes % 6.8 % (1.7-9.3); Neutrophils # 7.1 K/mm3 (1.8-7.8); Neutrophils % 63.3 % (37.0-80.0); Platelet Count 246 K/mm3 (142-424); Red Blood Count 6.05 M/mm3 (4.20-5.40); Red Cell Distribution Width 15.1 % (11.5-17.5); White Blood Count 11.2 K/mm3 (4.8-10.8)
[2024-01-28 18:12] LABS: Hemoglobin 18.2 g/dL (12.2-16.2)
[2024-01-28 19:15] LABS: Free Thyroxine Index 6.5 ug/dL (5.93-13.13); T4 (Thyroxine) 14.1 ug/dl (5.53-11.0); Triiodothryronine (T3) Uptake 46 % (23.5-40.5)
[2024-01-28 19:28] LABS: Thyroid Stimulating Hormone 1.71 uIU/mL (0.465-4.68)
== END 2024-01-28 23:59 | disposition home or self-care (01) ==
LOC: LAB.DROPOF 01-31 09:39
PROVIDERS: PCP Family Medicine; Visit Provider Family Medicine
DX: E66.01 Morbid (severe) obesity due to excess calories (principal); Z68.44 Body mass index [BMI] 60.0-69.9, adult; D58.2 Other hemoglobinopathies; R73.03 Prediabetes; Z00.00 Encounter for general adult medical examination without abnormal findings; I10 Essential (primary) hypertension
CPT/HCPCS: 84436; 84443; 84479; 85025

== ENCOUNTER 2024-02-04 11:55 | Outpatient (CLI) | payer MEDICARE, SELFPAY ==
[2024-02-04 12:30] VITALS: BMI 61.4
[2024-02-04 12:45] VITALS: BP 125/70; PULSE 66; RESP 17
[2024-02-04 12:50] LABS: Basophils # 0.1 K/mm3 (0-0.2); Lymphocytes # 2.7 K/mm3 (0.7-4.5); Monocytes # 0.7 K/mm3 (0.1-1.0)
[2024-02-04 12:55] LABS: Basophils % 1.1 % (0.1-2.0); Eosinophils # 0.4 K/mm3 (0.0-0.4); Eosinophils % 4.1 % (0.1-12.0); Hematocrit 59.1 % (37.0-47.0); Hemoglobin 17.5 g/dL (12.2-16.2); Lymphocytes % 25.2 % (10-50); Mean Corpuscular HGB Conc 29.6 g/dL (31.8-35.4); Mean Corpuscular Hemoglobin 29.4 pg (27.0-31.2); Mean Corpuscular Volume 99.4 fl (81-99); Monocytes % 6.4 % (1.7-9.3); Neutrophils # 6.7 K/mm3 (1.8-7.8); Neutrophils % 63.2 % (37.0-80.0); Platelet Count 203 K/mm3 (142-424); Red Blood Count 5.94 M/mm3 (4.20-5.40); White Blood Count 10.5 K/mm3 (4.8-10.8)
== END 2024-02-04 12:45 | disposition home or self-care (01) ==
LOC: LAB 11:57 → INF 12:30
PROVIDERS: PCP Family Medicine; Visit Provider Family Medicine
DX: D58.2 Other hemoglobinopathies (principal)
CPT/HCPCS: 36415; 85025; 99195

== ENCOUNTER 2024-04-26 11:07 | Outpatient (CLI) | payer MEDICARE, SELFPAY ==
[2024-04-26 18:12] LABS: Basophils # 0.2 K/mm3 (0-0.2); Basophils % 1.2 % (0.1-2.0); Eosinophils # 0.6 K/mm3 (0.0-0.4); Eosinophils % 4.9 % (0.1-12.0); Hematocrit 57.2 % (37.0-47.0); Lymphocytes # 3.1 K/mm3 (0.7-4.5); Lymphocytes % 23.5 % (10-50); Mean Corpuscular HGB Conc 31.6 g/dL (31.8-35.4); Mean Corpuscular Hemoglobin 30.2 pg (27.0-31.2); Mean Corpuscular Volume 95.6 fl (81-99); Mean Platelet Volume 8.8 fl (7.4-10.4); Monocytes # 0.6 K/mm3 (0.1-1.0); Monocytes % 4.4 % (1.7-9.3); Neutrophils # 8.6 K/mm3 (1.8-7.8); Neutrophils % 65.9 % (37.0-80.0); Platelet Count 226 K/mm3 (142-424); Red Blood Count 5.98 M/mm3 (4.20-5.40); White Blood Count 13.1 K/mm3 (4.8-10.8)
[2024-04-26 18:27] LABS: Hemoglobin 18.1 g/dL (12.2-16.2)
[2024-04-26 19:28] LABS: Hemoglobin A1C 5.4 % (4.0-6.0)
== END 2024-04-26 23:59 | disposition home or self-care (01) ==
LOC: LAB.DROPOF 04-27 10:11
PROVIDERS: PCP Family Medicine; Visit Provider Family Medicine
DX: D75.1 Secondary polycythemia (principal); R73.03 Prediabetes
CPT/HCPCS: 83036; 85025

== ENCOUNTER 2024-05-09 08:48 | Outpatient (CLI) | payer MEDICARE, SELFPAY ==
[2024-05-09 09:35] VITALS: BP 124/75; PULSE 67; RESP 16; TEMP 36.4; O2SAT 97
[2024-05-09 10:35] VITALS: BP 144/76; PULSE 67; RESP 14; TEMP 36.4; O2SAT 96
== END 2024-05-09 10:40 | disposition home or self-care (01) ==
LOC: LAB 08:49 → INF 08:52
PROVIDERS: PCP Family Medicine; Visit Provider Family Medicine
DX: D75.1 Secondary polycythemia (principal)
CPT/HCPCS: 99195

== ENCOUNTER 2024-06-12 09:31 | Emergency (ER) | payer MEDICARE, SELFPAY ==
[2024-06-12] VITALS (7 sets, daily range): BP systolic 127–171; BP diastolic 70–83; PULSE 55–80; RESP 20; TEMP 36.8–37; O2SAT 95–100; BMI 56.7
--- NOTE | 2024-06-12 10:22 | CT_ITS ---
FINAL REPORT TECHNIQUE: Axial images through the abdomen and pelvis were performed without contrast. This study was performed with techniques to keep radiation doses as low as reasonably achievable, (ALARA). Individualized dose reduction techniques using automated exposure control or adjustment of mA and/or kV according to the patient's size were employed. CLINICAL HISTORY: L flank pain COMPARISON: 05/21/2023 FINDINGS: Abdomen: A 5 mm nodule is seen in the left lung base on image 4 of series 3. There is mild fatty infiltration of the liver. The gallbladder is surgically absent. The spleen and pancreas are unremarkable. There is mild bilateral adrenal hyperplasia. The right kidney is unremarkable. A left renal stone is significantly larger compared to the prior exam. The stone measures up to 17 mm in greatest dimension and is best seen on the coronal images. Pelvis: The GI tract demonstrates no obstruction. The urinary bladder is decompressed. The uterus is anteverted. The appendix is not visualized. There is no pelvic mass or inflammation. IMPRESSION: Significant increase in size of left renal stone. Fatty liver. New, 5 mm nodule in the left lung base. 1 year follow-up chest CT is recommended per Fleischner Society criteria. Reviewed, Interpreted and Dictated by Diomedes Ham MD Transcribed by Vanessa Swartz Authenticated and [facility]
[2024-06-12] MEDS: LACTATED RINGERS 1000ML 1,000 ML 999 ML IV (10:36)
[2024-06-12] MEDS: SODIUM CHLORIDE 0.9% 25ML BAG 25 ML IV (10:37)
[2024-06-12] MEDS: ACETAMINOPHEN 1,000MG/100ML VIAL 1000 MG IV (10:37)
[2024-06-12] MEDS: KETOROLAC 30MG/ML VIAL 15 MG IV (10:37)
[2024-06-12] MEDS: MORPHINE 4MG/ML SYRINGE 4 MG IV (10:37)
[2024-06-12] MEDS: PROMETHAZINE HCL 25MG/ML 1ML VIAL 25 MG IV (10:37)
[2024-06-12 10:38] LABS: Albumin Level 4.1 g/dl (3.5-5.0); Chloride 103 mmol/L (98-107); Potassium 4.5 mmoL/L (3.5-5.1); Sodium 137 mmol/L (136-145)
[2024-06-12 10:39] LABS: Appearance,Urine SL CLOUDY (Clear); Bilirubin,Urine Negative (Negative); Blood, Urine 3+ (Negative); Color,Urine YELLOW (Yellow); Glucose,Urine (UA) Negative (Negative); Ketones,Urine Negative (Negative); Leukocyte Esterase,Urine 1+ (Negative); Microscopic, Urine URINE MICROSCOPIC (MICROSCOPIC); Nitrate,Urine Negative (Negative); Protein,Urine 1+ (Negative); Specific Gravity, Urine >= 1.030 (1.005-1.030); Urobilinogen,Urine 0.2 EU/dl (0.2)
[2024-06-12 10:41] LABS: Alanine Aminotransferase 17 U/L (12-78); Albumin/Globulin Ratio 1.2 (1.1-1.8); Alkaline Phosphatase 101 U/L (38-126); Anion Gap 10.5 mEq/L (5-15); Aspartate Amino Transferase 30 U/L (14-36); Bilirubin,Total 0.5 mg/dl (0.2-1.3); Blood Urea Nitrogen 17 mg/dl (7-17); Carbon Dioxide 28 mmol/L (22.0-30.0); Creatinine Clearance Estimated 64 mL/min (50-200); Estimated Glomerular Filt Rate 76 ml/min (>60); GFR (African American) 92 ML/MIN (>60); Globulin 3.4 g/dL (1.3-3.2); Lipase 71 U/L (23-300); Total Protein,Serum 7.5 g/dl (6.3-8.2); Urine Pregnancy, HCG Qual. Negative (Negative)
[2024-06-12 10:42] LABS: Calcium 9.3 mg/dl (8.4-10.2); Glucose 105 mg/dl (74-100)
[2024-06-12 10:54] LABS: Basophils # 0.1 K/mm3 (0-0.2); Basophils % 0.4 % (0.1-2.0); Eosinophils # 0.3 K/mm3 (0.0-0.4); Eosinophils % 2.7 % (0.1-12.0); Hematocrit 54.6 % (37.0-47.0); Hemoglobin 17.2 g/dL (12.2-16.2); Lymphocytes # 2.4 K/mm3 (0.7-4.5); Lymphocytes % 19.5 % (10-50); Mean Corpuscular HGB Conc 31.5 g/dL (31.8-35.4); Mean Corpuscular Hemoglobin 29.3 pg (27.0-31.2); Mean Corpuscular Volume 92.9 fl (81-99); Monocytes # 0.7 K/mm3 (0.1-1.0); Monocytes % 5.5 % (1.7-9.3); Neutrophils # 8.6 K/mm3 (1.8-7.8); Neutrophils % 71.5 % (37.0-80.0); Platelet Count 153 K/mm3 (142-424); Red Blood Count 5.88 M/mm3 (4.20-5.40); Red Cell Distribution Width 13.9 % (11.5-17.5); White Blood Count 12.1 K/mm3 (4.8-10.8)
[2024-06-12] MEDS: METOCLOPRAMIDE HCL 10MG/2ML VIAL 10 MG IVP (10:56)
[2024-06-12] MEDS: FAMOTIDINE 20MG/2ML VIAL 20 MG IV (10:56)
--- NOTE | 2024-06-12 11:03 | HMH.EDGENADL ---
Discharge Plan Disposition Patient Disposition: Xfer Short-Term Hosp Condition: Good Prescriptions Prescriptions: No Action Ozempic 1 mg/dose (4 mg/3 mL) pen injector 1 mg SQ WEEKLY Qty: 3 2RF ProAir RespiClick 90 mcg/actuation aerosol powdr breath activated See Rx Instructions .ROUTE .COMPLEX Qty: 1 2RF Dose Instruction: INHALE 1 PUFF DAILY FOR COPD Rx Instructions: INHALE 1 PUFF DAILY FOR COPD levothyroxine 25 mcg tablet 25 mcg PO DAILY Qty: 30 2RF spironolactone [Aldactone] 25 mg tablet 25 mg PO DAILY Qty: 30 4RF budesonide-formoterol 160-4.5 mcg/actuation HFA aerosol inhaler See Rx Instructions .ROUTE .COMPLEX Qty: 11 1RF Dose Instruction: INHALE 2 PUFFS BY MOUTH TWICE DAILY FOR COPD Rx Instructions: INHALE 2 PUFFS BY MOUTH TWICE DAILY FOR COPD metformin 500 mg tablet 500 mg PO BID Qty: 60 2RF lisinopril-hydrochlorothiazide 20-25 mg tablet See Rx Instructions .ROUTE .COMPLEX Qty: 180 0RF Dose Instruction: TAKE 1 TABLET BY MOUTH TWICE DAILY FOR BLOOD PRESSURE Rx Instructions: TAKE 1 TABLET BY MOUTH TWICE DAILY FOR BLOOD PRESSURE Referrals Follow up/Referrals: Treasure Streeter APRN [Primary Care Provider] - See instructions Clinical Impressions Clinical Impression: Pyelonephritis, Left flank pain, Ureterolithiasis Stand Alone Forms Stand Alone Forms: Transfer Record - ED Instructions Patient Instructions: DI for Acute Abdominal Pain Print Language Print Language: Kinyarwanda Discharge ED Provider: Alessandra Dobson General Adult HPI General Chief complaint: Abdominal Pain Stated complaint: lower abd, side and back pain, vomiting Time Seen by Provider: 06/12/24 10:22 Mode of Arrival: Ambulatory Source of Information: Patient Limitations: No Limitations Description of Symptoms (Recalled from ER Triage Doc. by RN): patient came in for llq pain and radiates around back x1 week, its achy in nature, has hx of kidney stone History of Present Illness HPI narrative: This patient is a 49-year-old female with a history of obesity on Ozempic, tobacco abuse, COPD, prior cholecystectomy presenting to the emergency department for evaluation with concern for left flank pain radiating around to her abdomen as well as nausea and vomiting. She also notes chills. She states has been going on for about a week. She does note a history of kidney stones and states that she is not sure if that is what this is. She denies any changes in bowel movements, stating that she chronically has diarrhea on Ozempic. No melena or hematochezia. Nothing seems to get a relief from the severe pain. Related Data Previous Rx's ?Medication ?Instructions ?Recorded albuterol sulfate 90 mcg/actuation See Rx Instructions .Route 06/23/23 breath activated powder inhaler .COMPLEX #1 ea (ProAir RespiClick) levothyroxine 25 mcg tablet 25 mcg PO DAILY #30 tabs 06/23/23 spironolactone 25 mg tablet 25 mg PO DAILY #30 tabs 06/23/23 (Aldactone) budesonide-formoterol HFA 160 See Rx Instructions .Route 09/20/23 mcg-4.5 mcg/actuation aerosol .COMPLEX #11 grams inhaler metformin 500 mg tablet 500 mg PO BID #60 tabs 12/24/23 semaglutide 1 mg/dose (4 mg/3 mL) 1 mg (0.75 mL) SQ WEEKLY #3 mL 04/26/24 subcutaneous pen injector (Ozempic) lisinopril 20 See Rx Instructions .Route 06/07/24 mg-hydrochlorothiazide 25 mg tablet .COMPLEX #180 tabs Allergies Allergy/AdvReac Type Severity Reaction Status Date / Time bupropion (From Wellbutrin) AdvReac Severe Nightmare Verified 05/26/24 10:25 [facility] Disclaimer: The information contained in this section may have been updated after the patient was seen, as this information can be updated by other users. Medical History Colon cancer screening Pyelonephritis Pyelonephritis Hypokalemia ZAIRE (acute kidney injury) Shingles Shingles (herpes zoster) polyneuropathy Hyperbilirubinemia Acute pancreatitis Transaminitis Acute constipation Right sided abdominal pain Acute diverticulitis Renal colic on right side Dental infection Pain, dental Dental abscess Pain, dental Class 3 severe obesity with body mass index (BMI) of 60.0 to 69.9 in adult Abnormal uterine bleeding delivery delivered Hypertension Left against medical advice Tobacco abuse Smoker Surgical History History of cholecystectomy Family History Other Anemia Asthma Cancer Coronary artery disease Diabetes FHx: mental illness Hypertension Kidney disease Thyroid disorder Tuberculosis Social History Smoking Status: Current every day smoker tobacco type: cigarettes packs per day: 2 alcohol intake: never substance use type: former substance user and marijuana current occupational status: unemployed Travel in the last 8 weeks: Inside the [place] household members: family housing: apartment Have you lived/traveled outside [place] in past 30 days?: No Contact w/someone who lives/traveled outside [place] past 30 days?: No Exposure to someone with infectious disease in past 14 days?: No Do you have a fever (greater than 100.4 F or 38 C)?: No Have you tested positive for COVID-19: No Exposed to someone with COVID-19 in past 14 days?: No Do you have a sore throat?: No Do you have a cough?: No Do you have any weakness?: No Do you have any diarrhea?: No Are you experiencing any unusual bleeding?: No Do you have any muscle aches/pain?: No Do you have any abdominal pain?: Yes Are you experiencing loss of taste or smell?: No Other Medical History Have you received the Flu Vaccine for this season: No Have you received the Pneumonia Vaccine: No ROS Obtained: Yes All systems reviewed & no additional complaints except as documented Physical Exam General General appearance: alert and obese Comment: Very uncomfortable appearing, pacing around the room trying to find a position of comfort. Head Head exam: atraumatic and normocephalic Eye Eye exam: Present normal appearance, PERRL and EOMI ENT ENT exam: Present normal exam, normal oropharynx, mucous membranes moist and normal external ear exam Neck Neck exam: Present normal inspection, full ROM and trachea midline; Absent tenderness Chest Chest inspection: Present normal inspection and symmetric chest wall rise; Absent tenderness Respiratory Respiratory exam: Present normal lung sounds bilaterally; Absent respiratory distress, wheezes, stridor or accessory muscle use Cardiovascular Cardiovascular exam: Present regular rate and normal rhythm Abdominal Exam Abdominal exam: Present soft and tenderness (Left side of the abdomen); Absent distention or guarding Extremities Exam Extremities exam: Present normal inspection, full ROM and normal capillary refill; Absent tenderness or edema Back Exam Back exam: Present full ROM and CVA tenderness (L) Neurological Exam Neurological exam: Present alert, oriented X3, CN II-XII intact and normal gait; Absent motor sensory deficit Psychiatric Psychiatric exam: Present anxious Skin Skin exam: Present warm and dry Medical Decision Making Medical Records Medical records reviewed: Yes I reviewed the patient's medical records. Screening: Per USPSTF and CDC recommendations, given the prevalence of disease in our region, it is our hospital?s policy to screen for HIV and viral Hepatitis for all patients aged 18 and over and those with ongoing risk factors. [place] Inquiry Pt receiving controlled substance: No Vital Signs: 06/12/24 09:32 06/12/24 12:11 06/12/24 12:12 Temperature 98.6 F Temperature Source Oral Pulse Rate 55 L 57 L Pulse Rate [Left Radial] 61 Respiratory Rate 20 Blood Pressure 127/82 Blood Pressure [Right Arm] 171/83 H Blood Pressure Mean [Right Arm] 112 02 Sat by Pulse Oximetry 100 99 98 Oxygen Delivery Method Room Air 06/12/24 12:15 06/12/24 12:30 06/12/24 12:45 Temperature Temperature Source Pulse Rate 56 L 55 L 55 L Pulse Rate [Left Radial] Respiratory Rate Blood Pressure 130/82 Blood Pressure [Right Arm] Blood Pressure Mean [Right Arm] 02 Sat by Pulse Oximetry 98 95 99 Oxygen Delivery Method Lab Data Lab results reviewed: Yes I reviewed the patient's lab results. Lab Results 06/12/24 09:45: WBC 12.1 H, RBC 5.88 H, Hgb 17.2 H, Hct 54.6 H, MCV 92.9, MCH 29.3, MCHC 31.5 L, RDW 13.9, Plt Count 153, MPV 11.0 H, Neut % (Auto) 71.5, Lymph % (Auto) 19.5, [place] % (Auto) 5.5, Eos % (Auto) 2.7, Baso % (Auto) 0.4, Neut # (Auto) 8.6 H, Lymph # (Auto) 2.4, [place] # (Auto) 0.7, Eos # (Auto) 0.3, Baso # (Auto) 0.1, Sodium 137, Potassium 4.5, Chloride 103, Carbon Dioxide 28, Anion Gap 10.5, BUN 17, Creatinine 0.80, Estimated Creat Clear 64, Estimated GFR 76, Est GFR ( Amer) 92, Glucose 105 H, Calcium 9.3, Total Bilirubin 0.5, AST 30, ALT 17, Alkaline Phosphatase 101, Total Protein 7.5, Albumin 4.1, Globulin 3.4 H, Albumin/Globulin Ratio 1.2, Lipase 71, Urine HCG, Qual Negative 06/12/24 : Urine Color Yellow, Urine Appearance Sl cloudy, Urine pH 6.0, Ur Specific Hardy >= 1.030, Urine Protein 1+ A, Urine Glucose (UA) Negative, Urine Ketones Negative, Urine Blood 3+ A, Urine Nitrate Negative, Urine Bilirubin Negative, Urine Urobilinogen 0.2, Ur Leukocyte Esterase 1+ A, Urine RBC 20-50, Urine WBC 3-5, Ur Squamous Epith Cells 5-10, Urine Bacteria 1+ 06/12/24 09:45 06/12/24 09:45 Orders (Tests/Meds): ED MEDICATIONS Generic Name Dose Route Start Last Admin Trade Name Freq PRN Reason Stop Dose Admin Sodium Chloride 8 ml 06/12/24 10:52 Sodium Chloride 0.9% 10ml Vial IV 07/12/24 10:51 NEEDED PRN dilute pepcid Discontinued Medications Generic Name Dose Route Start Last Admin Trade Name Freq PRN Reason Stop Dose Admin Acetaminophen 1,000 mg 06/12/24 10:27 06/12/24 10:37 Acetaminophen 1,000mg/100ml Vial IV 06/12/24 10:28 1,000 mg ONCE ONE Administration Famotidine 20 mg 06/12/24 10:52 06/12/24 10:56 Famotidine 20mg/2ml Vial IV 06/12/24 10:53 20 mg ONCE ONE Administration Lactated Ringer's 1,000 mls @ 999 mls/hr 06/12/24 10:27 06/12/24 10:36 Lactated Ringer's 1000 Ml Bag IV 06/12/24 11:27 999 mls/hr .Q1H1M ONE Administration Ceftriaxone Sodium 2 gm/ 100 mls @ 200 mls/hr 06/12/24 11:50 06/12/24 12:08 Sodium Chloride IV 06/12/24 12:19 200 mls/hr ONCE ONE Administration Ketorolac Tromethamine 15 mg 06/12/24 10:27 06/12/24 10:37 Ketorolac 30mg/Ml Vial IV 06/12/24 10:28 15 mg ONCE ONE Administration Metoclopramide HCl 10 mg 06/12/24 10:52 06/12/24 10:56 Metoclopramide Hcl 10mg/2ml Vial IVP 06/12/24 10:53 10 mg ONCE ONE Administration Morphine Sulfate 4 mg 06/12/24 10:27 06/12/24 10:37 Morphine 4mg/Ml Syringe IV 06/12/24 10:28 4 mg ONCE ONE Administration Promethazine HCl 25 mg 06/12/24 10:27 06/12/24 10:37 Promethazine Hcl 25mg/Ml 1ml Vial IV 06/12/24 10:28 25 mg ONCE ONE Administration Sodium Chloride 25 ml 06/12/24 10:27 06/12/24 10:37 Sodium Chloride 0.9% 25ml Bag IV 06/12/24 10:28 25 ml ONCE ONE Administration ORDERS Category Date Time Status CT abdomen pelvis wo con Stat Cat Scan 06/12/24 10:22 Completed Complete Blood Count Auto Diff Stat Lab 06/12/24 09:45 Completed Comprehensive Metabolic Panel Stat Lab 06/12/24 09:45 Completed Lipase Stat Lab 06/12/24 09:45 Completed UA [Urinalysis and Microscopic] Stat Lab 06/12/24 Completed UA [Urinalysis and Microscopic] Stat Lab 06/12/24 13:02 Received Urine , HCG Qual. Stat Lab 06/12/24 09:45 Completed Urine Culture Stat Micro 06/12/24 Received Urine Culture(cathed specimen) Stat Micro 06/12/24 13:02 Received Medical Decision Narrative: In summary, this patient is a 49-year-old female presenting to the Emergency Department for evaluation of left flankpain radiating around to her left lower quadrant, nausea, vomiting. Differential diagnoses considered include but are not limited to pyelonephritis, ureterolithiasis, colitis, diverticulitis, pancreatitis. Ruling out the most morbid conditions drove assessment. It should be noted patient's history includes morbid obesity on Ozempic, hypertension, tobacco dependence which are not at goal therapy. This complicates all aspects of care by increasing patient's risk for morbidity. I reviewed patient's past medical records and noted previous evaluation by myself 04/2023 with concerns for possible choledocholithiasis/ascending cholangitis for which she was transferred to higher level of care. She is now status post cholecystectomy. On exam, the patient is very uncomfortable appearing, actively pacing around the room trying to find a position of comfort. She has left sided abdominal tenderness and left CVA tenderness. Otherwise, exam is reassuring with reassuring vitals on cardiac telemetry with exception of hypertension. Workup included CBC, CMP, lipase, urinalysis, CT abdomen pelvis without IV contrast. She was given a bolus of IV fluids as well as IV morphine, Phenergan, acetaminophen, and Toradol for symptomatic improvement. I independently interpreted CT scan prior to the radiologist read and noted a large left renal stone that is difficult to ascertain whether or not it is causing any sort of obstruction or hydronephrosis given how proximal it is. Based on the patient symptomology, I feel this could be causing obstruction. Please see their read for final interpretation. Labs were obtained that demonstrated leukocytosis as well as leukocyte esterase and white blood cells in the urine with 1+ bacteria. Patient does not have an ZAIRE. On reassessment, patient had some improvement after administration of interventions above, but she continued to have significant vomiting. Given this, I gave her IV Reglan and Pepcid with good improvement. Overall, I was unsure if this stone could be causing any sort of obstruction. It is very large at 17 mm and it is possible it got stuck in the very proximal ureter, but if it still renal but I doubt it is the cause of her pain. I called [facility] for urology consultation given we do not have urology here for further recommendations. They advised that they feel that it is unclear whether or not the patient's symptoms are being caused by this at this time but they recommended transfer there for further evaluation and management. Dr. Dillon is the accepting physician. They also recommended sending a cath urine specimen and urine culture, which were sent. I did give the patient IV Rocephin with concern for urinary tract infection. Patient is agreeable with transfer to [facility] for higher level of care for urology. At this time, symptoms are controlled and I feel that she is stable for transfer. EMS transport was arranged, and she was transferred in stable condition Critical Care Critical Care Time Critical Care Time: No
[2024-06-12 11:10] LABS: Bacteria,Urine 1+ /lpf; RBC,Urine 20-50 #/hpf (0-3)
[2024-06-12] MEDS: CEFTRIAXONE SODIUM 2 GM in 0.9 % SODIUM CHLORIDE 100 ML IV (12:08)
--- NOTE | 2024-06-12 12:26 | PC.NURSE ---
Dr. Dobson is s/w Dr Dillon with [facility]
[2024-06-12 13:12] LABS: Microscopic, Urine URINE MICROSCOPIC (MICROSCOPIC)
[2024-06-12 13:14] LABS: Appearance,Urine CLEAR (Clear); Blood, Urine 2+ (Negative); Color,Urine YELLOW (Yellow); Glucose,Urine (UA) Negative (Negative); Ketones,Urine Negative (Negative); Leukocyte Esterase,Urine Negative (Negative); Nitrate,Urine Negative (Negative); Protein,Urine 2+ (Negative); Specific Gravity, Urine >= 1.030 (1.005-1.030); Urobilinogen,Urine 0.2 EU/dl (0.2)
[2024-06-12 13:34] LABS: Bilirubin,Urine 1+ (Negative)
[2024-06-12 13:46] LABS: Bacteria,Urine 2+ /lpf; Transitional Epi Cells,Urine OCC #/lpf (0-3)
== END 2024-06-12 14:37 | disposition short-term general hospital (02) ==
PROVIDERS: Emergency Provider Emergency Medicine; PCP Family Medicine
DX: N20.9 Urinary calculus, unspecified (principal); R10.32 Left lower quadrant pain; M54.9 Dorsalgia, unspecified; R11.2 Nausea with vomiting, unspecified
CPT/HCPCS: 74176; 80053; 81001; 81025; 83690; 85025; 87086; 96361; 96365; 96374; 96375; 99284; J0131; J0696; J1885; J2270; J2550; J2765; J7120; S0028

== ENCOUNTER 2024-06-24 09:53 | Emergency (ER) | payer MEDICARE, SELFPAY ==
[2024-06-24 09:54] VITALS: BP 146/79; PULSE 87; RESP 20; TEMP 36.4; O2SAT 100; BMI 56.2
--- NOTE | 2024-06-24 10:20 | PC.NURSE ---
pt refuses all blood work until seen by
[2024-06-24 10:29] LABS: Microscopic, Urine URINE MICROSCOPIC (MICROSCOPIC)
[2024-06-24 10:37] LABS: Blood, Urine 3+ (Negative); Glucose,Urine (UA) Negative (Negative); Ketones,Urine Negative (Negative); Leukocyte Esterase,Urine 2+ (Negative); Nitrate,Urine POSITIVE (Negative); PH,Urine 5.5 (5.0-8.5); Protein,Urine 2+ (Negative)
[2024-06-24 10:38] LABS: Appearance,Urine Slightly Cloudy (Clear); Bilirubin,Urine Negative (Negative); Color,Urine Orange (Yellow)
[2024-06-24 10:50] LABS: Bacteria,Urine 1+ /lpf; RBC,Urine TNTC #/hpf (0-3)
[2024-06-24 11:21] LABS: Urine Pregnancy, HCG Qual. Negative (Negative)
--- NOTE | 2024-06-24 11:23 | PC.NURSE ---
Patient in room and needs nothing
--- NOTE | 2024-06-24 11:28 | PC.NURSE ---
pt states she does not need to get in gown she knows what wrong she just needs and estrogen shot , i told pt md was in a room with a critical pt and we would have md see her as soon as he was available no needs at this time
--- NOTE | 2024-06-24 12:10 | [facility].EDGENADL ---
Discharge Plan Disposition Patient Disposition: Home, Self-Care Chief Complaint: Urogenital-Female Prescriptions Prescriptions: No Action Ozempic 1 mg/dose (4 mg/3 mL) pen injector 1 mg SQ WEEKLY Qty: 3 2RF ProAir RespiClick 90 mcg/actuation aerosol powdr breath activated See Rx Instructions .ROUTE .COMPLEX Qty: 1 2RF Dose Instruction: INHALE 1 PUFF DAILY FOR COPD Rx Instructions: INHALE 1 PUFF DAILY FOR COPD levothyroxine 25 mcg tablet 25 mcg PO DAILY Qty: 30 2RF spironolactone [Aldactone] 25 mg tablet 25 mg PO DAILY Qty: 30 4RF lisinopril-hydrochlorothiazide 20-25 mg tablet See Rx Instructions .ROUTE .COMPLEX Qty: 180 0RF Dose Instruction: TAKE 1 TABLET BY MOUTH TWICE DAILY FOR BLOOD PRESSURE Rx Instructions: TAKE 1 TABLET BY MOUTH TWICE DAILY FOR BLOOD PRESSURE budesonide-formoterol 160-4.5 mcg/actuation HFA aerosol inhaler See Rx Instructions .ROUTE .COMPLEX Qty: 11 6RF Dose Instruction: INHALE 2 PUFFS BY MOUTH TWICE DAILY FOR COPD Rx Instructions: INHALE 2 PUFFS BY MOUTH TWICE DAILY FOR COPD budesonide-formoterol [Symbicort] 160-4.5 mcg/actuation HFA aerosol inhaler 2 puff inhalation BID Qty: 11 4RF metformin 500 mg tablet See Rx Instructions .ROUTE .COMPLEX Qty: 180 0RF Dose Instruction: Take 1 tablet by mouth twice daily Rx Instructions: Take 1 tablet by mouth twice daily Referrals Follow up/Referrals: Treasure Streeter APRN [Primary Care Provider] - See instructions Activity Restrictions/Add. Instructions Additional Instructions/Restrictions: Call your family doctor to establish care for this visit to the emergency department and schedule follow-up within 48 hours to ensure improvement. If you have any worsening of your condition or any other concerning signs or symptoms, return to the emergency department or your primary care doctor for further evaluation. Clinical Impressions Clinical Impression: Abnormal vaginal bleeding Instructions Patient Instructions: DI for Urinary Tract Infection (UTI), DI for Urinary Tract Infection in Children Print Language Print Language: Palestinian Discharge ED Provider: Cristobal Ríos General Adult [facility] General Chief complaint: Urogenital-Female Stated complaint: vaginal bleeding and clotting Time Seen by Provider: 06/24/24 11:30 Mode of Arrival: Ambulatory Source of Information: Patient Limitations: No Limitations Description of Symptoms (Recalled from ER Triage Doc. by RN): pt had a stent placed in her kidney yesterday. She has been having vaginal bleeding with large clots. has had this multiple times and she does not believe its related to the kidney stent. states she had an estrogen shot: the last time this happened. History of Present Illness HPI narrative: Please note that above description of symptoms, in this electronic medical record under categorization of recalled from ER triage doctor by RN are reflective of an initial nursing assessment, however, is not reflective of my full history and physical exam that was personally taken and clarified. Consequentially, this preceding description of symptoms, which may include the patient's categorized chief complaint in the EMR, do not reflect my personal clinical impression, and the ultimate description of history of present illness and patient stated complaints should be deferred to this section of the note. Unless stated otherwise or congruent with this section of the note, additional signs, symptoms, or incongruence should be interpreted as inaccurate with my clinical impression. Related Data Previous Rx's ?Medication ?Instructions ?Recorded albuterol sulfate 90 mcg/actuation See Rx Instructions .Route 06/23/23 breath activated powder inhaler .COMPLEX #1 ea (ProAir RespiClick) levothyroxine 25 mcg tablet 25 mcg PO DAILY #30 tabs 06/23/23 spironolactone 25 mg tablet 25 mg PO DAILY #30 tabs 06/23/23 (Aldactone) semaglutide 1 mg/dose (4 mg/3 mL) 1 mg (0.75 mL) SQ WEEKLY #3 mL 04/26/24 subcutaneous pen injector (Ozempic) lisinopril 20 See Rx Instructions .Route 06/07/24 mg-hydrochlorothiazide 25 mg tablet .COMPLEX #180 tabs budesonide-formoterol HFA 160 See Rx Instructions .Route 06/13/24 mcg-4.5 mcg/actuation aerosol .COMPLEX #11 grams inhaler budesonide-formoterol HFA 160 2 puff inhalation BID #11 grams 06/13/24 mcg-4.5 mcg/actuation aerosol inhaler (Symbicort) metformin 500 mg tablet See Rx Instructions .Route 06/16/24 .COMPLEX #180 tabs Allergies Allergy/AdvReac Type Severity Reaction Status Date / Time bupropion (From Wellbutrin) AdvReac Severe Nightmare Verified 06/24/24 11:57 [facility] Disclaimer: The information contained in this section may have been updated after the patient was seen, as this information can be updated by other users. Medical History Colon cancer screening Pyelonephritis Pyelonephritis Hypokalemia ZAIRE (acute kidney injury) Shingles Shingles (herpes zoster) polyneuropathy Hyperbilirubinemia Acute pancreatitis Transaminitis Acute constipation Right sided abdominal pain Acute diverticulitis Renal colic on right side Dental infection Pain, dental Dental abscess Pain, dental Class 3 severe obesity with body mass index (BMI) of 60.0 to 69.9 in adult Abnormal uterine bleeding delivery delivered Hypertension Left against medical advice Tobacco abuse Smoker Surgical History History of cholecystectomy Family History Other Anemia Asthma Cancer Coronary artery disease Diabetes FHx: mental illness Hypertension Kidney disease Thyroid disorder Tuberculosis Social History Smoking Status: Current every day smoker tobacco type: cigarettes packs per day: 2 alcohol intake: never substance use type: former substance user and marijuana current occupational status: unemployed Travel in the last 8 weeks: Inside the [place] household members: family housing: apartment Have you lived/traveled outside [place] in past 30 days?: No Contact w/someone who lives/traveled outside [place] past 30 days?: No Exposure to someone with infectious disease in past 14 days?: No Do you have a fever (greater than 100.4 F or 38 C)?: No Have you tested positive for COVID-19: No Exposed to someone with COVID-19 in past 14 days?: No Do you have a sore throat?: No Do you have a cough?: No Do you have any weakness?: No Do you have any diarrhea?: No Are you experiencing any unusual bleeding?: No Do you have any muscle aches/pain?: No Do you have any abdominal pain?: No Are you experiencing loss of taste or smell?: No Other Medical History Have you received the Flu Vaccine for this season: No Have you received the Pneumonia Vaccine: No ROS Obtained: Yes All systems reviewed & no additional complaints except as documented Physical Exam General General appearance: alert Head Head exam: atraumatic and normocephalic Eye Eye exam: Present normal appearance, PERRL and EOMI Neck Neck exam: Present normal inspection, full ROM and trachea midline Respiratory Respiratory exam: Absent respiratory distress, wheezes, stridor, accessory muscle use or prolonged expiratory phase Cardiovascular Cardiovascular exam: Present other (Pulses equal symmetric in upper and lower extremities) Abdominal Exam Abdominal exam: Present soft; Absent distention, tenderness or pulsatile mass Extremities Exam Extremities exam: Absent edema Neurological Exam Neurological exam: Present alert, oriented X3 and CN II-XII intact; Absent motor sensory deficit Skin Skin exam: Present warm and dry; Absent diaphoresis or erythema Medical Decision Making Medical Records Medical records reviewed: Yes I reviewed the patient's medical records. Screening: Per USPSTF and CDC recommendations, given the prevalence of disease in our region, it is our hospital?s policy to screen for HIV and viral Hepatitis for all patients aged 18 and over and those with ongoing risk factors. [place] Inquiry Pt receiving controlled substance: No [place] was queried for this patient: No Vital Signs: 06/24/24 09:54 Temperature 97.6 F Temperature Source Oral Pulse Rate [Right] 87 Respiratory Rate 20 Blood Pressure [Right Arm] 146/79 H Blood Pressure Mean [Right Arm] 101 02 Sat by Pulse Oximetry 100 Lab Data Lab Results 06/24/24 09:55: Urine Color Swain, Urine Appearance Slightly cloudy, Urine pH 5.5, Ur Specific [place] 1.020, Urine Protein 2+ A, Urine Glucose (UA) Negative, Urine Ketones Negative, Urine Blood 3+ A, Urine Nitrate Positive A, Urine Bilirubin Negative, Urine Urobilinogen 1.0, Ur Leukocyte Esterase 2+ A, Urine RBC Tntc, Urine WBC 5-10, Ur Squamous Epith Cells 3-5, Urine Bacteria 1+, Urine HCG, Qual Negative Orders (Tests/Meds): ORDERS Category Date Time Status UA [Urinalysis and Microscopic] Stat Lab 06/24/24 09:55 Completed Urine , HCG Qual. Stat Lab 06/24/24 09:55 Completed Urine Culture Stat Micro 06/24/24 09:55 Received Medical Decision Narrative: Is a 49-year-old female history of obesity, abnormal vaginal bleeding with presumed uterine cancer (following with [facility]), recent nephrolithiasis with lithotripsy and stenting yesterday, 06/23, urinary tract infection on cefdinir presenting with vaginal bleeding. Patient started vaginal bleeding started yesterday. She was seen by SAL[employer]CE ADMINISTRATOR at while she was being evaluated for her stone. States that they want to follow-up outpatient. Since that time, she has had passage of large clots and cramping. No other symptoms. Patient states that the last time this happened, she got an estrogen shot, and it stopped everything within an hour. Declining any other exam, workup, etc. Prolonged conversation had with patient regarding combined oral contraceptives for the treatment of abnormal vaginal bleeding versus the IM injection, which I am not recommending. Patient states that she does not want to do oral pills. She wants to get the IM injection. Clotting risk as well as other risk factors were discussed with patient, she states that she accepts the potential benefits at the expense of the risks and she is alert, oriented, appears to have capacity to make this decision. Pharmacy was contacted and case was discussed, recommended 25 mg IM conjugated estrogens. This was ordered. Because patient at baseline without signs or symptoms of clinical decompensation, deemed appropriate for discharge. Results were relayed to patient who voiced understanding and were agreeable to outpatient management and follow up. I discussed my clinical impression with patient and answered all questions. At this time, the evidence for any other entities in the differential is insufficient to warrant any further testing or ED observation. This was explained as well. Advisory was given that persistent or worsening symptoms require further evaluation. I confirmed the understanding of this discussion. Close return precautions discussed. Cotton Weigher disclaimer Much of this encounter note is an electronic biometrics experimentalist spoken language to printed text. Electronic biometrics experimentalist of the spoken language may permit errors. Although I have reviewed the note, some errors may still exist. Critical Care Critical Care Time Critical Care Time: No
[2024-06-24] MEDS: ESTROGENS CONJUGATED 25 MG IM (12:13)
[2024-06-24 12:21] VITALS: BP 138/77; PULSE 84; RESP 14; TEMP 36.4; O2SAT 99
== END 2024-06-24 12:21 | disposition home or self-care (01) ==
PROVIDERS: Emergency Provider Emergency Medicine; PCP Family Medicine
DX: N93.9 Abnormal uterine and vaginal bleeding, unspecified (principal)
CPT/HCPCS: 81001; 81025; 87086; 96372; 96374; 99283; J1410

== ENCOUNTER 2024-06-25 15:56 | Emergency (ER) | payer MEDICARE, SELFPAY ==
[2024-06-25] VITALS (13 sets, daily range): BP systolic 117–159; BP diastolic 65–94; PULSE 71–94; RESP 17–18; TEMP 36.9–37.2; O2SAT 92–98; BMI 56.2
--- NOTE | 2024-06-25 16:28 | ED_ITS ---
Discharge Plan Disposition Patient Disposition: Home, Self-Care Condition: Fair Chief Complaint: Abdominal Pain Prescriptions Prescriptions: No Action Ozempic 1 mg/dose (4 mg/3 mL) pen injector 1 mg SQ WEEKLY Qty: 3 2RF ProAir RespiClick 90 mcg/actuation aerosol powdr breath activated See Rx Instructions .ROUTE .COMPLEX Qty: 1 2RF Dose Instruction: INHALE 1 PUFF DAILY FOR COPD Rx Instructions: INHALE 1 PUFF DAILY FOR COPD levothyroxine 25 mcg tablet 25 mcg PO DAILY Qty: 30 2RF spironolactone [Aldactone] 25 mg tablet 25 mg PO DAILY Qty: 30 4RF lisinopril-hydrochlorothiazide 20-25 mg tablet See Rx Instructions .ROUTE .COMPLEX Qty: 180 0RF Dose Instruction: TAKE 1 TABLET BY MOUTH TWICE DAILY FOR BLOOD PRESSURE Rx Instructions: TAKE 1 TABLET BY MOUTH TWICE DAILY FOR BLOOD PRESSURE budesonide-formoterol 160-4.5 mcg/actuation HFA aerosol inhaler See Rx Instructions .ROUTE .COMPLEX Qty: 11 6RF Dose Instruction: INHALE 2 PUFFS BY MOUTH TWICE DAILY FOR COPD Rx Instructions: INHALE 2 PUFFS BY MOUTH TWICE DAILY FOR COPD budesonide-formoterol [Symbicort] 160-4.5 mcg/actuation HFA aerosol inhaler 2 puff inhalation BID Qty: 11 4RF metformin 500 mg tablet See Rx Instructions .ROUTE .COMPLEX Qty: 180 0RF Dose Instruction: Take 1 tablet by mouth twice daily Rx Instructions: Take 1 tablet by mouth twice daily Referrals Follow up/Referrals: Treasure Streeter APRN [Primary Care Provider] - See instructions Activity Restrictions/Add. Instructions Additional Instructions/Restrictions: Call the gynecology office first thing in the morning and they will see you tomorrow and have an ultrasound performed at that time. Return to the emergency department if your bleeding worsens, pain worsens despite Tylenol and ibuprofen at home, or if you become concerned for your health. Clinical Impressions Clinical Impression: Abnormal uterine bleeding Instructions Patient Instructions: DI for Acute Abdominal Pain Print Language Print Language: Gabonese Discharge ED Provider: Vinnie Serrano Adult HPI General Chief complaint: Abdominal Pain Stated complaint: passing blood clots, abd pain/pressure Time Seen by Provider: 06/25/24 15:57 Mode of Arrival: Ambulatory Limitations: No Limitations Description of Symptoms (Recalled from ER Triage Doc. by RN): Patient states she is having vaginal bleeding, abdominal pain, and vaginal pressure. States she was here yesterday. Patient states, I just need a hysterectomy. I think I need to go to . Patient states she had a kidney stone lasered two days ago. History of Present Illness HPI narrative: Patient is a 49-year-old female with a history of hypertension, diabetes, endometrial cancer?, Kidney stones. She presents today due to worsening suprapubic pain and cramps as well as vaginal bleeding. She reports that this is consistent with her previous presentations that have resolved with an estrogen shot. Per my review of the EMR, yesterday she arrived here and received an estrogen shot intramuscularly, but she reports it did not help and she is in significant amount of pain, 10 out of 10. Has been unrelenting to oxycodone and ibuprofen and Tylenol at home. She endorses subjective fevers and chills denies any dysuria hematuria flank pain. Denies vomiting or diarrhea. She is still having bowel movements and passing gas. Related Data Previous Rx's ?Medication ?Instructions ?Recorded albuterol sulfate 90 mcg/actuation See Rx Instructions .Route 06/23/23 breath activated powder inhaler .COMPLEX #1 ea (ProAir RespiClick) levothyroxine 25 mcg tablet 25 mcg PO DAILY #30 tabs 06/23/23 spironolactone 25 mg tablet 25 mg PO DAILY #30 tabs 06/23/23 (Aldactone) semaglutide 1 mg/dose (4 mg/3 mL) 1 mg (0.75 mL) SQ WEEKLY #3 mL 04/26/24 subcutaneous pen injector (Ozempic) lisinopril 20 See Rx Instructions .Route 06/07/24 mg-hydrochlorothiazide 25 mg tablet .COMPLEX #180 tabs budesonide-formoterol HFA 160 See Rx Instructions .Route 06/13/24 mcg-4.5 mcg/actuation aerosol .COMPLEX #11 grams inhaler budesonide-formoterol HFA 160 2 puff inhalation BID #11 grams 06/13/24 mcg-4.5 mcg/actuation aerosol inhaler (Symbicort) metformin 500 mg tablet See Rx Instructions .Route 06/16/24 .COMPLEX #180 tabs Allergies Allergy/AdvReac Type Severity Reaction Status Date / Time bupropion (From Wellbutrin) AdvReac Severe Nightmare Verified 06/24/24 11:57 [facility] Disclaimer: The information contained in this section may have been updated after the patient was seen, as this information can be updated by other users. Medical History Colon cancer screening Pyelonephritis Pyelonephritis Hypokalemia ZAIRE (acute kidney injury) Shingles Shingles (herpes zoster) polyneuropathy Hyperbilirubinemia Acute pancreatitis Transaminitis Acute constipation Right sided abdominal pain Acute diverticulitis Renal colic on right side Dental infection Pain, dental Dental abscess Pain, dental Class 3 severe obesity with body mass index (BMI) of 60.0 to 69.9 in adult Abnormal uterine bleeding delivery delivered Hypertension Left against medical advice Tobacco abuse Smoker Surgical History History of cholecystectomy Family History Other Anemia Asthma Cancer Coronary artery disease Diabetes FHx: mental illness Hypertension Kidney disease Thyroid disorder Tuberculosis Social History Smoking Status: Current every day smoker tobacco type: cigarettes packs per day: 2 alcohol intake: never substance use type: former substance user and marijuana current occupational status: unemployed Travel in the last 8 weeks: Inside the [place] household members: family housing: apartment Have you lived/traveled outside US in past 30 days?: No Contact w/someone who lives/traveled outside US past 30 days?: No Exposure to someone with infectious disease in past 14 days?: No Do you have a fever (greater than 100.4 F or 38 C)?: No Have you tested positive for COVID-19: No Exposed to someone with COVID-19 in past 14 days?: No Do you have a sore throat?: No Do you have a cough?: No Do you have any weakness?: No Do you have any diarrhea?: No Are you experiencing any unusual bleeding?: No Do you have any muscle aches/pain?: No Do you have any abdominal pain?: Yes Are you experiencing loss of taste or smell?: No Other Medical History Have you received the Flu Vaccine for this season: No Have you received the Pneumonia Vaccine: No ROS Obtained: Yes All systems reviewed & no additional complaints except as documented Physical Exam General General appearance: alert and in no apparent distress Head Head exam: atraumatic and normocephalic Eye Eye exam: Present PERRL and EOMI ENT ENT exam: Present normal oropharynx Neck Neck exam: Present full ROM and trachea midline Chest Chest inspection: Present symmetric chest wall rise Respiratory Respiratory exam: Present normal lung sounds bilaterally; Absent stridor Cardiovascular Cardiovascular exam: Present regular rate and normal rhythm Abdominal Exam Abdominal exam: Present soft and tenderness (Suprapubic); Absent distention Extremities Exam Extremities exam: Present full ROM Neurological Exam Neurological exam: Present alert and oriented X3 Psychiatric Psychiatric exam: Present normal mood Skin Skin exam: Present warm and dry Medical Decision Making Medical Records Screening: Per USPSTF and CDC recommendations, given the prevalence of disease in our region, it is our hospital?s policy to screen for HIV and viral Hepatitis for all patients aged 18 and over and those with ongoing risk factors. [place] Inquiry Pt receiving controlled substance: No Vital Signs: 06/25/24 15:59 06/25/24 16:11 06/25/24 16:31 Temperature 98.9 F Temperature Source Oral Pulse Rate 94 H 90 Pulse Rate [Radial] 92 H Respiratory Rate 18 Blood Pressure 159/94 H 142/93 H Blood Pressure [R Arm] 145/93 H Blood Pressure Mean [R Arm] 110 Blood Pressure Source [R Arm] Automatic Cuff 02 Sat by Pulse Oximetry 98 95 95 Oxygen Delivery Method Room Air Room Air Room Air 06/25/24 17:36 06/25/24 18:00 06/25/24 18:30 Temperature Temperature Source Pulse Rate 84 72 75 Pulse Rate [Radial] Respiratory Rate Blood Pressure 149/82 H 138/85 124/71 Blood Pressure [R Arm] Blood Pressure Mean [R Arm] Blood Pressure Source [R Arm] 02 Sat by Pulse Oximetry 94 L 97 97 Oxygen Delivery Method Room Air Room Air Room Air Lab Data Lab Results 06/25/24 17:00: WBC 9.9, RBC 5.57 H, Hgb 16.3 H, Hct 50.5 H, MCV 90.7, MCH 29.3, MCHC 32.3, RDW 13.6, Plt Count 240, MPV 9.7, Neut % (Auto) 66.7, Lymph % (Auto) 16.2, [place] % (Auto) 10.7 H, Eos % (Auto) 4.6, Baso % (Auto) 1.1, Neut # (Auto) 6.6, Lymph # (Auto) 1.6, [place] # (Auto) 1.1 H, Eos # (Auto) 0.5 H, Baso # (Auto) 0.1, Sodium 138, Potassium 4.2, Chloride 103, Carbon Dioxide 25, Anion Gap 14.2, BUN 19 H, Creatinine 1.00, Estimated Creat Clear 51, Estimated GFR 59, Est GFR ( Amer) 71, Glucose 94, Lactate 1.0, Calcium 8.8, Magnesium 1.8, Total Bilirubin 0.4, AST 23, ALT 16, Alkaline Phosphatase 91, Total Protein 7.5, Albumin 4.3, Globulin 3.2, Albumin/Globulin Ratio 1.3, Lipase 46 06/25/24 17:25: Blood Type A Positive, Antibody Screen Negative 06/25/24 17:32: Urine Color [place], Urine Appearance Clear, Urine pH 5.0, Ur Specific [place] <= 1.005, Urine Protein 2+ A, Urine Glucose (UA) Negative, Urine Ketones Negative, Urine Blood 3+ A, Urine Nitrate Positive A, Urine Bilirubin Negative, Urine Urobilinogen 1.0, Ur Leukocyte Esterase 1+ A, Urine RBC 20-50, Urine WBC Occasional, Ur Squamous Epith Cells 3-5, Urine Bacteria None 06/25/24 17:00 06/25/24 17:00 Orders (Tests/Meds): ED MEDICATIONS Discontinued Medications Generic Name Dose Route Start Last Admin Trade Name Freq PRN Reason Stop Dose Admin Iopamidol 90 ml 06/25/24 17:10 06/25/24 17:11 Iopamidol-370 (76%);100ml Bottle IV 06/25/24 17:11 90 ml ONCE ONE Administration Ketorolac Tromethamine 15 mg 06/25/24 18:16 06/25/24 18:31 Ketorolac 30mg/Ml Vial IV 06/25/24 18:17 15 mg ONCE ONE Administration Methylergonovine Maleate 0.2 mg 06/25/24 18:16 06/25/24 18:33 Methylergonovine Maleate 0.2mg/Ml Inj IM 06/25/24 18:17 0.2 mg ONCE ONE Administration Morphine Sulfate 4 mg 06/25/24 16:40 06/25/24 16:55 Morphine 4mg/Ml Syringe IV 06/25/24 16:41 4 mg ONCE ONE Administration Ondansetron HCl 4 mg 06/25/24 16:40 06/25/24 16:55 Ondansetron 4mg/2ml Vial IV 06/25/24 16:41 4 mg ONCE ONE Administration Sodium Chloride 10 ml 06/25/24 17:10 06/25/24 17:11 Sodium Chloride 0.9% 10ml Syr (Rad Only) IV 06/25/24 17:11 10 ml ONCE ONE Administration ORDERS Category Date Time Status Type and Screen Stat BBK 06/25/24 17:[address] abdomen pelvis w con Stat Cat Scan 06/25/24 16:40 Completed Complete Blood Count Auto Diff Stat Lab 06/25/24 17:00 Completed Comprehensive Metabolic Panel Stat Lab 06/25/24 17:00 Completed Lactic Acid Stat Lab 06/25/24 17:00 Completed Lipase Stat Lab 06/25/24 17:00 Completed Magnesium Stat Lab 06/25/24 17:00 Completed Urinalysis and Microscopic Stat Lab 06/25/24 17:32 Completed Urine Culture Stat Micro 06/25/24 17:32 Received Medical Decision Narrative: In summary, this 49-year-old female presents to the emergency department today with vaginal bleeding, cramping. On initial evaluation patient is afebrile, hemodynamically stable. She is in significant mount of pain. Abdomen is soft, obese, no peritoneal signs. She does have reproducible left lower quadrant and suprapubic pain. She is actively vaginally bleeding, but she denies any lightheadedness or syncope. She is still having bowel movements and passing gas, nevertheless given exquisite pain and unknown history of untreated endometrial cancer, we will proceed with cross-sectional imaging of her abdomen and hematologic labs and likely gynecologic consultation. Differential diagnosis includes but is not limited to kidney stone, uterine cancer, abnormal uterine bleeding, acute blood loss anemia, electrolyte disturbance, UTI. Based on these concerns, I ordered CBC CMP urinalysis lipase lactate type and screen CT abdomen. Patient received Toradol, morphine for treatment. Labs personally reviewed demonstrate Mild anemia with a hemoglobin of 16.3, given hemodynamic stability not acutely actionable. No significant electrolyte derangement on my dependent review, nitrite positive, but no white blood cells, given recent instrumentation and taking Azo, favored not to treat. . CT imaging personally interpreted demonstrate Blood in the vaginal vault, no evidence of kidney stones, no evidence of obstruction, not acutely actionable . I had an interactive discussion with gynecology regarding patient. He recommends Methergine, on reassessment, did not help bleeding, recommends follow-up in clinic in the morning and will obtain a transvaginal ultrasound at that time.. On reassessment patient reports improvement pain. Methergine did not help significantly. Scant bleeding while here, she reports it is chronic over the last couple of weeks. I informed her that she needs to return if the bleeding worsens. She has good follow-up with the clinic in the morning. Her hemodynamics have been stable while here and her hemoglobin is not significantly anemic. Of note, social determinants of health include poor health literacy. At this time it was felt that the patient was safe to be discharged home. The patient was in agreement with this plan. The patient was given strict return precautions prior to being discharged from the emergency department. Critical Care Critical Care Time Critical Care Time: No
--- NOTE | 2024-06-25 16:40 | CT_ITS ---
PROCEDURE INFORMATION: Exam: CT Abdomen And Pelvis With Contrast Exam date and time: 06/25/2024 5:09 PM Age: 49 years old Clinical indication: Abdominal pain; Generalized; Additional info: Epigastric pain and vaginal bleeding TECHNIQUE: Imaging protocol: Computed tomography of the abdomen and pelvis with contrast. Radiation optimization: All CT scans at this facility use at least one of these dose optimization techniques: automated exposure control; mA and/or kV adjustment per patient size (includes targeted exams where dose is matched to clinical indication); or iterative reconstruction. Contrast material: ISOVUE; Contrast volume: 90 ml; Contrast route: IV; COMPARISON: CT ABDOMEN PELVIS WO CON 06/12/2024 10:38 AM FINDINGS: Lungs: Minimal centrilobular emphysema within the visualized lower lobes. Mild bilateral lower lobe bronchial wall thickening, compatible with reactive airway disease or bronchitis. Liver: Minimal nodularity contour, compatible cirrhosis. Mild hepatomegaly. Gallbladder and biliary ducts: Gallbladder surgically absent. Pancreas: Normal. Spleen: Normal. Adrenal glands: Mild bilateral adrenal hyperplasia. Kidneys and ureters: Left double-J ureteral stent present. Simple left renal cyst, for which no further evaluation necessary. Stomach and bowel: Normal. Appendix: No evidence of appendicitis. Intraperitoneal space: Unremarkable. No free air. No significant fluid collection. Vasculature: Unremarkable. No abdominal aortic aneurysm. Lymph nodes: Unremarkable. No enlarged lymph nodes. Urinary bladder: Urinary bladder decompressed. Reproductive: See Bones/joints finding. Bones/joints: 7.6 x 5.8 cm hypodense collection within the lower pelvis, possibly fluid, although cystic structure or material within the vagina and cervix region possible. Findings not well characterized on this study. Soft tissues: Normal. IMPRESSION: 1. Mild bilateral lower lobe bronchial wall thickening, compatible with reactive airway disease or bronchitis. 2. 7.6 x 5.8 cm hypodense collection within the lower pelvis, possibly fluid, although cystic structure or material within the vagina and cervix region possible. Findings not well characterized on this study. Recommend further with sonography.
[2024-06-25] MEDS: MORPHINE 4MG/ML SYRINGE 4 MG IV (16:55)
[2024-06-25] MEDS: ONDANSETRON 4MG/2ML VIAL 4 MG IV (16:55)
[2024-06-25 17:08] LABS: Basophils # 0.1 K/mm3 (0-0.2); Basophils % 1.1 % (0.1-2.0); Eosinophils # 0.5 K/mm3 (0.0-0.4); Eosinophils % 4.6 % (0.1-12.0); Hematocrit 50.5 % (37.0-47.0); Hemoglobin 16.3 g/dL (12.2-16.2); Lymphocytes # 1.6 K/mm3 (0.7-4.5); Lymphocytes % 16.2 % (10-50); Mean Corpuscular HGB Conc 32.3 g/dL (31.8-35.4); Mean Corpuscular Hemoglobin 29.3 pg (27.0-31.2); Mean Corpuscular Volume 90.7 fl (81-99); Mean Platelet Volume 9.7 fl (7.4-10.4); Monocytes # 1.1 K/mm3 (0.1-1.0); Monocytes % 10.7 % (1.7-9.3); Neutrophils # 6.6 K/mm3 (1.8-7.8); Neutrophils % 66.7 % (37.0-80.0); Platelet Count 240 K/mm3 (142-424); Red Blood Count 5.57 M/mm3 (4.20-5.40); Red Cell Distribution Width 13.6 % (11.5-17.5); White Blood Count 9.9 K/mm3 (4.8-10.8)
[2024-06-25] MEDS: IOPAMIDOL-370 (76%);100ML BOTTLE 90 ML IV (17:11)
[2024-06-25] MEDS: SODIUM CHLORIDE 0.9% 10ML SYR (RAD ONLY) 10 ML IV (17:11)
[2024-06-25 17:17] LABS: Alanine Aminotransferase 16 U/L (12-78); Albumin Level 4.3 g/dl (3.5-5.0); Albumin/Globulin Ratio 1.3 (1.1-1.8); Alkaline Phosphatase 91 U/L (38-126); Anion Gap 14.2 mEq/L (5-15); Aspartate Amino Transferase 23 U/L (14-36); Bilirubin,Total 0.4 mg/dl (0.2-1.3); Blood Urea Nitrogen 19 mg/dl (7-17); Calcium 8.8 mg/dl (8.4-10.2); Carbon Dioxide 25 mmol/L (22.0-30.0); Chloride 103 mmol/L (98-107); Creatinine Clearance Estimated 51 mL/min (50-200); Estimated Glomerular Filt Rate 59 ml/min (>60); GFR (African American) 71 ML/MIN (>60); Globulin 3.2 g/dL (1.3-3.2); Glucose 94 mg/dl (74-100); Lipase 46 U/L (23-300); Magnesium 1.8 mg/dl (1.6-2.3); Potassium 4.2 mmoL/L (3.5-5.1); Sodium 138 mmol/L (136-145); Total Protein,Serum 7.5 g/dl (6.3-8.2)
[2024-06-25 17:42] LABS: Microscopic, Urine URINE MICROSCOPIC (MICROSCOPIC)
[2024-06-25 17:45] LABS: Appearance,Urine CLEAR (Clear); Bilirubin,Urine Negative (Negative); Blood, Urine 3+ (Negative); Color,Urine ORANGE (Yellow); Glucose,Urine (UA) Negative (Negative); Ketones,Urine Negative (Negative); Leukocyte Esterase,Urine 1+ (Negative); Nitrate,Urine POSITIVE (Negative); Protein,Urine 2+ (Negative); Specific Gravity, Urine <= 1.005 (1.005-1.030)
--- NOTE | 2024-06-25 18:11 | PC.NURSE ---
paging ob consulting sales executive() to speak with dimitris beckwith
--- NOTE | 2024-06-25 18:12 | PC.NURSE ---
SPEAKING WITH FROM OB
--- NOTE | 2024-06-25 18:22 | PC.NURSE ---
is okay to cancel the us due to the criteria that calls the senior solutions workflow consultant in for test
[2024-06-25] MEDS: KETOROLAC 30MG/ML VIAL 15 MG IV (18:31)
[2024-06-25 18:32] LABS: RBC,Urine 20-50 #/hpf (0-3); WBC,Urine Occasional #/hpf (0-3)
[2024-06-25] MEDS: METHYLERGONOVINE MALEATE 0.2MG/ML INJ 0.2 MG IM (18:33)
--- NOTE | 2024-06-25 19:23 | PC.NURSE ---
No complaints at this time.
== END 2024-06-25 19:57 | disposition home or self-care (01) ==
PROVIDERS: Emergency Provider Emergency Medicine; PCP Family Medicine
DX: N93.9 Abnormal uterine and vaginal bleeding, unspecified (principal); R10.2 Pelvic and perineal pain; R50.9 Fever, unspecified; F17.210 Nicotine dependence, cigarettes, uncomplicated
CPT/HCPCS: 36415; 74177; 80053; 81001; 83605; 83690; 83735; 85025; 86850; 87086; 96372; 96374; 96375; 99285; J1885; J2270; J2405; Q9967

== ENCOUNTER 2024-06-30 13:43 | Outpatient (CLI) | payer MEDICARE, SELFPAY ==
--- NOTE | 2024-06-30 13:48 | XR_ITS ---
FINAL REPORT CLINICAL HISTORY: [email or web address] COMPARISON: 11/02/2018 FINDINGS: No acute pulmonary density is evident. There is no evidence of effusion or other pleural disease. The mediastinum has a normal appearance. The cardiac silhouette is unremarkable. IMPRESSION: Unremarkable chest exam. Reviewed, Interpreted and Dictated by Jane Valdez MD Transcribed by Elissa Escalona Authenticated and [facility]
== END 2024-06-30 23:59 | disposition home or self-care (01) ==
LOC: RAD 13:44
PROVIDERS: PCP Family Medicine; Visit Provider Family Medicine
DX: R06.2 Wheezing (principal)
CPT/HCPCS: 71046

== ENCOUNTER 2024-08-10 08:20 | Outpatient (CLI) | payer MEDICARE, SELFPAY ==
[2024-08-10 19:00] LABS: Coronavirus 19, PCR Not Detected (NotDetected); Influenza B, PCR Not Detected (NotDetected)
[2024-08-10 20:32] LABS: Influenza A, PCR Detected (NotDetected)
== END 2024-08-10 23:59 | disposition home or self-care (01) ==
LOC: LAB.DROPOF 08-11 12:15
PROVIDERS: PCP Family Medicine; Visit Provider Family Medicine
DX: R68.89 Other general symptoms and signs (principal); R68.83 Chills (without fever); R05.9 Cough, unspecified; R52 Pain, unspecified
CPT/HCPCS: 87636

== ENCOUNTER 2024-11-02 10:39 | Outpatient (CLI) | payer MEDICARE, SELFPAY ==
--- NOTE | 2024-11-02 11:00 | MM_ITS ---
PROCEDURE INFORMATION: Exam: MG Bilateral Screening 3D Mammography Exam date and time: 11/02/2024 10:47 AM Age: 49 years old Clinical indication: Screening examination TECHNIQUE: Imaging protocol: Bilateral Screening tomosynthesis and 2D mammography including computer-aided detection (CAD) when performed. COMPARISON: No relevant prior studies available. Baseline FINDINGS: MAMMOGRAPHY: Breast composition: There are scattered areas of fibroglandular density. Mass: 0.8 cm ovoid mass in the anterior right approximate 3 o'clock axis Architectural distortion: None. Calcifications: No suspicious calcifications. Asymmetric density: None. Skin thickening: None. Axillary adenopathy: None. IMPRESSION: Patient to be recalled for right breast ultrasound for further evaluation of a right breast mass. ASSESSMENT: BI-RADS Category 0: Incomplete- Need Additional Imaging Evaluation
--- OUTSIDE RECORDS SUMMARY | 2024-11-02 11:09 | XMS_ITS | Clinical Summary ---
Author Organization Healthcare Address [address] [place] [address] Care Team Providers Care Medication Aid Name Role Phone Moni Morin APRN Primary Care Provider Allergies No known active allergies Medications ketorolac (Toradol) 10 MG tablet Take 1 tablet (10 mg) by mouth every 6 (six) hours if needed for moderate pain. 20 tablet 06/12/2024 Active lisinopril-hydr oCHLOROthiazide 20-25 MG tablet Take 1 tablet by mouth 2 (two) times a day. Active metFORMIN (Glucophage) 500 MG tablet Take 1 tablet (500 mg) by mouth 2 (two) times a day with meals. Active Ozempic, 2 MG/DOSE, 8 MG/3ML solution pen-injector Inject 2 mg under the skin 1 (one) time per week. 06/03/2024 Active levothyroxine (Synthroid, Levoxyl) 25 MCG tablet Take 1 tablet (25 mcg) by mouth daily. 05/04/2024 Active Active Problems Problem Noted Date Diagnosed Date Class III obesity with body mass index (BMI) of 40.0 or higher 06/23/2024 Family History Medical History Relation Name Comments Heart failure Other 1 Diabetes Other 2 Kidney failure Other 3 Throat cancer Other 4 Malig Hyperthermia Neg Hx Relation Name Status Comments Other 1 Other 2 Other 3 Other 4 Social History Tobacco Use Types Packs/Day Years Used Date Smoking Tobacco: Every Day Cigarettes 1 35.4 Started: 1989 Smokeless Tobacco: Never Tobacco Cessation:Ready to Q uit: Not Asked; Counseling Given: Not Answered Alcohol Use Standard Drinks/Week Comments No 0 (1 standard drink = 0.6 oz pur e alcohol) Comments No Sex and Gender Information Value Date Recorded Sex Assigned at Not on file Legal Sex Female 8:42 PM EDT Gender Identity Not on file Sexual Orientation Not on file Last Filed Vital Signs Vital Sign Reading Time Taken Comments Blood Pressure 134/86 07/21/2024 12:15 PM EST Pulse 79 07/21/2024 12:25 PM EST Temperature 36.7 C (98 F) 07/21/2024 12:25 PM EST Respiratory Rate 16 07/21/2024 12:25 PM EST Oxygen Saturation 96% 07/21/2024 12:25 PM EST Inhaled Oxygen Concentration - - Weight 129 kg (285 lb) 07/13/2024 1:35 PM EST Height 154.9 cm (5' 1 ) 06/23/2024 12:35 PM EST Body Mass Index 53.85 06/23/2024 12:35 PM EST Plan of Treatment Health Maintenance Due Date Last Done Comments [facility]-Depression Screening 1975 [facility]-Medicare Annual Wellness (AWV) 1975 [facility]-/Child/Adol SDOH Screenings 1975 [facility]-Obesity Intervention 1981 [facility]- SDOH Screenings 1993 [facility]-Adult SDOH Screenings 1993 [facility]-DTaP,Tdap,and Td Vaccine s (1 - Tdap) 1994 [facility]-Hepatitis B Vaccines (1 of 3 - 19+ 3-dose series) 1994 [facility]-Pneumococcal Vaccine: Pediatrics (0 to 5 Years) and At-Risk Patients (6 to 49 Years) (1 of 2 - PCV) 1994 [facility]-Pap Smear 1996 [facility]-Cervical Cancer Screening 2005 [facility]-HPV/Cotest 2005 CT Colonography 2020 Colonoscopy 2020 FIT-DNA 2020 FIT 2020 FOBT 2020 Sigmoidoscopy 2020 [facility]-Colorectal Cancer Screening 2020 [id number] Vaccine (3 - Pfizer risk series) 04/21/2021 03/24/2021, 02/01/2021 [facility]-Influenza Vaccine ([place] n Ended) 2025 [facility]-Zoster Vaccines (1 of 2) 2025 [facility]-HIV Screening Completed 06/12/2024 [facility]-Hepatitis C Screening Completed 06/12/2024 HPV Vaccines Aged Out No longer eligi ble based on patient's age to complete this topic [facility]-HIB Vaccines Aged Out No longer e ligible based on patient's age to complete this topic [facility]-Hepatitis A Vaccines Aged Out No longer eligible based on patient's age to complete this topic [facility]-IPV Vaccines Aged Out No longer e ligible based on patient's age to complete this topic [facility]-Rotavirus Vaccines Aged Out No lo nger eligible based on patient's age to complete this topic Medical Devices Implanted Type Area Aircraft Assembler Device Identifier Shelf Expiration Date Model / Serial / Lot Stent Ureteral Double Pigtail Pos 6fr 24cm - Sn/A - [id number] Implanted:Qty: 1 on 07/21/2024 by Pilo Almanza MD at [facility] Stent Left: Ureter [id number] 02/22/2026 [id number] / N/A / [id number] Stent Ureteral Double Pigtail Pos 6fr 24cm - [id number] Implanted:Qty: 1 on 06/23/2024 by Pilo Almanza MD at [facility] Left: Other (See Comments) [id number] 01/28/2026 [id number] / / [id number] Description:Left ureter Procedures Procedure Name Priority Date/Time Associated Diagnosis Comments HEPATITIS C ANTIBODY - ED W/REFLEX TO HCV QUANT PCR STAT 06/12/2024 4:36 PM EST ED HIV 1/2 ANTIBODY/ANTIGEN SCREEN WITH REFLEX TO HIV I/II DIFFERENTIATION STAT 06/12/2024 4:36 PM EST from Last 3 Months or Most Recently Relevant to Health Maintenance Results * ED HIV 1/2 Antibody/Antigen Screen w/Reflex to HIV 1/2 Differentiation (06/12/2024 4:36 PM EST) HIV 1 & 2 Antibody/Antigen Screen Non Reactive Non Reactive 06/12/2024 5:[address] [facility] Comment:Screening for HIV 1 & 2 antibodies, and P24 antigen is NONREACTIVE. No confirmatory testing is required. Blood Venous blood specimen / Unknown Venipuncture / Unknown 06/12/2024 4:36 PM EST 06/12/2024 4:47 PM EST us Love L Wilmot DO LAB BLOOD ORDERABLES Final Re sult Performing Organization Address City/[facility]/ZIP Co de Phone Number [facility] [address] [place] [address] * Hepatitis C Antibody - ED (06/12/2024 4:36 PM EST) Hepatitis C Antibody Negative Negative 06/12/2024 5:[address] [facility] Blood Venous blood specimen / Unknown Venipuncture / Unknown 06/12/2024 4:36 PM EST 06/12/2024 4:47 PM EST Love L Matthew DO LAB BLOOD ORDERABLES Final Re sult Performing Organization Address City/[facility] Co de Phone Number [facility] [address] [place] [address] from Last 3 Months or Most Recently Relevant to Health Maintenance Insurance [facility] MEDICARE Care Teams Medication Aid Relationship Specialty Start Date End Date Moni Morin APRN PCP - General 10/04/20
== END 2024-11-02 23:59 | disposition home or self-care (01) ==
LOC: RAD 10:39
PROVIDERS: PCP Family Medicine; Visit Provider Family Medicine
DX: Z12.31 Encounter for screening mammogram for malignant neoplasm of breast (principal); R92.323 Mammographic fibroglandular density, bilateral breasts
CPT/HCPCS: 77063; 77067

== ENCOUNTER 2024-11-09 08:59 | Outpatient (CLI) | payer MEDICARE, MEDICAID, SELFPAY ==
--- OUTSIDE RECORDS SUMMARY | 2024-11-09 09:02 | XMS_ITS | Clinical Summary ---
Author Organization [facility] Address [address] [place] [id number] Care Team Providers Care Shaker Tender Name Role Phone Pcp, No Primary Care Provider [phone] Source Comments This information has been disclosed to you from confidential records protectedfrom disclosure by state law. You shall make no further disclosure of thisinformation without the specific, written, and informed release of theindividual to whom it pertains, or as otherwise permitted by law. A generalauthorization for the release of medical or other information is not sufficientfor the purposes of therelease of HIV test results or diagnoses. [id number] Health Allergies No known active allergies Medications metFORMIN (GLUCOPHAGE) 500 MG tablet Take 1 tablet (500 mg total) by mouth 2 times a day with meals. Active budesonide-for moteroL (SYMBICORT) 160-4.5 mcg/actuation inhaler Inhale 2 puffs into the lungs 2 times a day. Active lisinopriL-hyd rochlorothiazi de (PRINZIDE) 20-25 mg per tablet Take 1 tablet by mouth in the morning and at bedtime. Active albuterol (PROVENTIL) 2.5 mg /3 mL (0.083 %) nebulizer solution Inhale 3 mLs (2.5 mg total) by nebulization every 6 hours as needed for Wheezing. Active spironolactone (ALDACTONE) 25 MG tablet Take 1 tablet (25 mg total) by mouth daily. Active ketorolac (TORADOL) 10 mg tablet Take 1 tablet (10 mg total) by mouth every 6 hours as needed. 3 Active semaglutide, DIABETES, (OZEMPIC) 2 mg/dose (8 mg/3 mL) PnIj Inject 2 mg subcutaneously once a week. Active norethindrone (AYGESTIN) 5 mg tablet Take 1 tablet (5 mg total) by mouth in the morning and at bedtime. 30 tablet 5 5 Active Active Problems Problem Noted Date Diagnosed Date COPD (chronic obstructive pulmonary disease) 05/2023 Overview (05/24/2023): Noted by [facility] last documented on [id number] Depression 05/24/2023 DUB (dysfunctional uterine bleeding) 05/24/2023 Fibromyalgia 05/24/2023 Hypertension 05/24/2023 Microscopic hematuria 05/24/2023 Obesity 05/24/2023 Osteoarthritis 05/24/2023 Smoker 05/24/2023 Vaginal bleeding 05/24/2023 Vitamin D deficiency 05/24/2023 Gallstone pancreatitis 05/24/2023 Resolved Problems Problem Noted Date Diagnosed Date Resolved Date Abnormal hemoglobin (Hgb) 05/24/2023 Anxiety 05/24/2023 05/24/2023 Dental abscess 05/24/2023 05/24/2023 Dental infection 05/24/2023 05/24/2023 Fatigue 05/24/2023 05/24/2023 Pain, dental 05/24/2023 05/24/2023 Pyelonephritis 05/24/2023 05/24/2023 Renal colic on right side 05/24/2023 SOB (shortness of breath) 05/24/2023 Encounters Date Type Department Care Team Description 08/18/2024 Nurse Triage [facility] Obstetrics & Gynecology at [facility] [address] [place] [address] Lolly Patiño RN from Last 3 Months Immunizations Immunization Administration Dates Next Due COVID-19, mRNA, Pfizer monovalent 03/24/2021,03/2021 Family History Relation Status Comments Father Maternal Grandfather Maternal Grandmother Mother Paternal Grandfather Paternal Grandmother Paternal Uncle Other Social History Tobacco Use Types Packs/Day Years Used Date Smoking Tobacco: Every Day Cigarettes Smokeless Tobacco: Never Tobacco Cessation:Ready to Q uit: Not Asked; Counseling Given: Not Answered Alcohol Use Standard Drinks/Week Comments Never 0 (1 standard drink = 0.6 oz pur e alcohol) Utilities Answer Date Recorded In the past 12 months has th e [address], gas, oil, or water company threatened to shut off services in your home? No 05/21/2023 AUDIT-C Answer Date Recorded Q1: How often do you have a drink containing alcohol? Never 05/21/2023 Q2: How many drinks containi ng alcohol do you have on a typical day when you are drinking? Patient does not drink Q3: How often do you have si x or more drinks on one occasion? Never 05/21/2023 Hunger Vital Sign Answer Date Recorded Within the past 12 months, y ou worried that your food would run out before you got the money to buy more. Never true 05/21/20 23 Within the past 12 months, t he food you bought just didn't last and you didn't have money to get more. Never true 05/21/2023 PRAPARE - Transportation Answer Date Re corded In the past 12 months, has l ack of transportation kept you from medical appointments or from getting medications? No 04/24 In the past 12 months, has l ack of transportation kept you from meetings, work, or from getting things needed for daily living? No 05/21/2023 Housing Stability Vital Sign Answer Maged e Recorded In the last 12 months, was t here a time when you were not able to pay the mortgage or rent on time? No 05/21/2023 In the last 12 months, how many places have you lived? 1 05/21/2023 In the last 12 months, was t here a time when you did not have a steady place to sleep or slept in a usp (including now)? No 05/21/2023 Comments No Sex and Gender Information Value Date Recorded Sex Assigned at Female 05/25/2023 10:12 AM EST Legal Sex Female 1:49 AM EST Gender Identity Female 05/25/2023 10:12 AM EST Sexual Orientation Not on file Last Filed Vital Signs Vital Sign Reading Time Taken Comments Blood Pressure 131/73 07/07/2024 1:27 PM EST Pulse 78 07/07/2024 1:27 PM EST Temperature 37.1 C (98.8 F) 06/13/2024 8:52 PM EST Respiratory Rate 18 06/14/2024 1:42 AM EST Oxygen Saturation 97% 06/14/2024 1:42 AM EST Inhaled Oxygen Concentration 97% 06/14/2024 1 :42 AM EST Weight 130.3 kg (287 lb 3.2 oz) 07/07/2024 1:27 PM EST Height 153.7 cm (5' 0.5 ) 07/07/2024 1:27 PM EST Body Mass Index 55.17 07/07/2024 1:27 PM EST Plan of Treatment Health Maintenance Due Date Last Done Comments ASCVD Assessment 1975 Abnormal Colonoscopy Follow Up 1975 Depression Monitoring (PHQ-9) 1975 Diabetes Screening 1975 Pulmonary Function Testing 1975 HIV Screening 1993 Immunization: DTaP/Tdap/Td ( 1 - Tdap) 1994 Immunization: Hepatitis B (1 of 3 - 19+ 3-dose series) 1994 Immunization: Pneumococcal ( 1 of 2 - PCV) 1994 Cervical Cancer Screening/Pa p Smear (MyChart) 2005 Mammogram (MyChart) 2015 Cologuard (FIT-DNA) 2020 Colonoscopy 2020 Colorectal Cancer Screening (MyChart) 2020 Stool Testing (gFOBT) 2020 Immunization: COVID-19 ( season) 2024 03/24/2021, 02/01/2021 Tobacco Cessation Readiness 05/21/2024 05/21/2023 Immunization: Influenza (MyC negrete) (Season Ended) 2025 Renal Function/GFR 06/13/2025 06/13/2024, 0 05/25/2023, 05/24/2023, Additional history exists Hepatitis C Screening (MyChart) Completed 5 Procedures Procedure Name Priority Date/Time Associated Diagnosis Comments BASIC METABOLIC PANEL STAT 06/13/2024 2:43 PM EST ED HCV AB REFLEX TO HCV QUANT Routine 06/13/2024 2:43 PM EST from Last 3 Months or Most Recently Relevant to Health Maintenance Results * ED HCV Ab Reflex To HCV Quant (06/13/2024 2:43 PM EST) HCV Ab Nonreactive Nonreactive 06/13/2024 4:02 PM EST [facility] Comment:Health Department no tified in accordance with reportable infectious disease guidelines. HCVAB Number 0.03 0.00 - 0.79 S/CO 06/13/2024 4:02 PM EST [facility] Serum 06/13/2024 2:43 PM EST 06/13/2024 3:02 PM EST Melanie Sharma [facility] BLOOD ORDERABLES Final Resu lt [facility] [address] [place] [address], [facility] * Basic metabolic panel (06/13/2024 2:43 PM EST) Sodium 140 133 - 146 mmol/L 06/13/2024 3:32 PM EST [facility] Potassium 3.8 3.5 - 5.3 mmol/L 06/13/2024 3:32 PM EST [facility] Chloride 102 98 - 110 mmol/L 06/13/2024 3:32 PM EST [facility] CO2 25 21 - 33 mmol/L 06/13/2024 3:32 PM EST [facility] Anion Gap 13 3 - 16 mmol/L 06/13/2024 3:32 PM EST [facility] BUN 17 7 - 25 mg/dL 06/13/2024 3:32 PM EST [facility] Creatinine 1.10 0.60 - 1.30 mg/dL 06/13/2024 3:32 PM EST [facility] Glucose 98 70 - 100 mg/dL 06/13/2024 3:32 PM EST [facility] Calcium 9.0 8.6 - 10.3 mg/dL 06/13/2024 3:32 PM EST [facility] Osmolality, Calculated 292 278 - 305 mOsm/kg 06/13/2024 3:32 PM EST [facility] EGFR 62 06/13/2024 3:32 PM EST [facility] Comment:As of 2021, the estimated GFR is calculated using the 2020 Chronic Kidney Disease Epidemiology Collaboration (CKD-EPI) equation. In line with the NKF-ASN Task Force Recommendations, this equation does not include a coefficient for race. A single eGFR value is calculated for each patient. The reference interval is >60 mL/min/1.73m2. eGFR values greater than 90 will be reported as >90mL/min/1.73m2. Reference: Jesse Phillips, Serafin M, Sharron DC, Bethany ND, Rosy CA, Nina LA, et al. A Unifying Approach for GFR Estimation: Recommendations of the NKF-ASN Task Force on Reassessing the inclusion of Race in Diagnosing Kidney Disease. Am J Kidney Dis. 2020. Plasma 06/13/2024 2:43 PM EST 06/13/2024 3:02 PM EST Melanie Sharma [facility] BLOOD ORDERABLES Final Resu lt [facility] [address] [place] [address], [facility] from Last 3 Months or Most Recently Relevant to Health Maintenance Insurance Vivi MURGUIA, [place] [id number] [employer] MEDICARE [facility] Care Address: [address] [address] [place] [address] Advance Directives For more information, please contact: [phone] * Full Code (Latest Code Status on File) Date Activated Date Inactivated Comments 05/21/2023 6:10 AM 05/25/2023 10:01 PM Care Teams Shaker Tender Relationship Specialty Start Date End Date Pcp, No No Address PCP - General 07/07/24
--- OUTSIDE RECORDS SUMMARY | 2024-11-09 09:02 | XMS_ITS | Clinical Summary ---
Author Organization Healthcare Address [address] [place] [address] Care Team Providers Care Marble Worker Name Role Phone Moni Morin APRN Primary Care Provider [phone] Allergies No known active allergies Medications ketorolac [...] Date Smoking Tobacco: Every Day Cigarettes 1 35.5 Started: 1989 Smokeless Tobacco: Never Tobacco Cessation:Ready [...] 2020 Sigmoidoscopy 2020 [facility]-Colorectal Cancer Screening 2020 [id number] Vaccine (3 - Pfizer risk series) 04/21/2021 [...] this topic Medical Devices Implanted Type Area Store Shopper Device Identifier Shelf Expiration Date Model / Serial / Lot Stent Ureteral Double Pigtail Pos 6fr 24cm - Sn/A - [id number] Implanted:Qty: 1 on 07/21/2024 by Pilo Almanza MD at [facility] Stent Left: Ureter [employer]-[id number] 02/22/2026 [id number] / N/A / [id number] Stent Ureteral Double Pigtail Pos 6fr 24cm - [id number] Implanted:Qty: 1 on 06/23/2024 by Pilo Almanza MD at [facility] Left: Other (See Comments) [employer]-[id number] 01/28/2026 [id number] / / [id number] Description:Left ureter Procedures Procedure Name Priority Date/Time [...] Reactive Non Reactive 06/12/2024 5:29 PM EST [facility] Comment:Screening for HIV 1 & 2 antibodies, and P24 antigen is NONREACTIVE. No confirmatory testing is required. Blood Venous blood specimen / Unknown Venipuncture / Unknown 06/12/2024 4:36 PM EST 06/12/2024 4:47 PM EST us Love L [place] DO LAB BLOOD ORDERABLES Final Re sult Performing Organization Address City/[facility]/ZIP Co de Phone Number [facility] [address] [place] [address] * Hepatitis C Antibody - ED (06/12/2024 4:36 PM EST) Hepatitis C Antibody Negative Negative 06/12/2024 5:29 PM EST [facility] Blood Venous blood specimen / Unknown Venipuncture / Unknown 06/12/2024 4:36 PM EST 06/12/2024 4:47 PM EST Love L [place] DO LAB BLOOD ORDERABLES Final Re sult Performing Organization Address City/[facility] Co de Phone Number [facility] [address] [place] [address] from Last 3 Months or Most Recently Relevant to Health Maintenance Insurance [facility] MEDICARE Care Teams Marble Worker Relationship Specialty Start Date End Date Moni Morin APRN PCP - General 10/04/20
--- NOTE | 2024-11-09 09:15 | US_ITS ---
PROCEDURE INFORMATION: Exam: US Right Breast, Complete Exam date and time: 11/09/2024 9:07 AM Age: 49 years old Clinical indication: Recall on the basis of screening mammogram 11/02/2024 for further evaluation of 0.8 cm ovoid mass in the anterior right approximate 3 o'clock axis. TECHNIQUE: Imaging protocol: Complete ultrasound of all four quadrants of the right breast and the retroareolar regions, including ultrasound of the axilla when performed. COMPARISON: MG MM DIG SCREENING MAMM BI W/CAD 11/02/2024 10:47 AM FINDINGS: ULTRASOUND: Breast ultrasound findings: By sonography, all 4 quadrants, demonstrates at 2 o'clock 3 cm from the nipple an oval slightly lobulated and heterogeneous avascular mass measuring 0.8 x 0.4 x 0.8 cm which appears to correspond to the mammographic finding. At 11 o'clock 5 cm from the nipple, oval hypoechoic avascular mass measuring 0.3 x 0.3 x 0.4 cm. In the axilla, possible borderline cortical thickening of axillary lymph node 0.3 cm, with maintained echogenic hilum and no increased Doppler flow. IMPRESSION: Recommend ultrasound-guided biopsy of indeterminate sonographic mass on the right at 2 o'clock which appears to correspond to the mammographic finding, and advised correlation to ensure that is sonographically placed clip corresponds to the mammographic mass. Incidental note of a probably benign complicated cyst on the right at 11 o'clock, suggest six-month follow-up right sonography unless otherwise clinically indicated. ASSESSMENT: BI-RADS Category 4: Suspicious.
== END 2024-11-09 23:59 | disposition home or self-care (01) ==
LOC: RAD 08:59
PROVIDERS: PCP Family Medicine; Visit Provider Family Medicine
DX: N63.12 Unspecified lump in the right breast, upper inner quadrant (principal); N60.01 Solitary cyst of right breast
CPT/HCPCS: 76641

== ENCOUNTER 2024-11-28 08:26 | Outpatient (CLI) | payer MEDICARE, MEDICAID, SELFPAY ==
--- OUTSIDE RECORDS SUMMARY | 2024-11-28 08:28 | XMS_ITS | Clinical Summary ---
Author Organization Healthcare Address [address] [place] [address] Care Team Providers Care Cma Or Lpn Name Role Phone Moni Morin APRN Primary [...] Date Last Done Comments [facility]-Depression Screening 1975 [facility]-Medicare Annual Wellness (AWV) 1975 [facility]-Infant/Child/Adol SDOH Screenings 1975 [facility]-Obesity Intervention 1981 [facility]Y- [...] 2020 Sigmoidoscopy 2020 [facility]-Colorectal Cancer Screening 2020 [id number] Vaccine (3 - Pfizer risk series) 04/21/2021 03/24/2021, 02/01/2021 [facility]Y-Influenza Vaccine (#1) 2025 [facility]Y-Zoster Vaccines (1 of 2) 2025 [...] this topic Medical Devices Implanted Type Area Stocking And Box Shop Supervisor Device Identifier Shelf Expiration Date Model / Serial / Lot Stent Ureteral Double Pigtail Pos 6fr 24cm - Sn/A - [id number] Implanted:Qty: 1 on 07/21/2024 by Pilo Almanza MD at [facility] Stent Left: Ureter [employer]-[id number] 02/22/2026 [id number] / N/A / [id number] Stent Ureteral Double Pigtail Pos 6fr 24cm - [id number] Implanted:Qty: 1 on 06/23/2024 by Pilo Almanza MD at [facility] Left: Other (See Comments) [employer]-[id number] 01/28/2026 [id number] / / [id number] Description:Left ureter Procedures Procedure Name Priority Date/Time [...] Reactive Non Reactive 06/12/2024 5:29 PM EST [facility] Comment:Screening for HIV 1 & 2 antibodies, and P24 antigen is NONREACTIVE. No confirmatory testing is required. Blood Venous blood specimen / Unknown Venipuncture / Unknown 06/12/2024 4:36 PM EST 06/12/2024 4:47 PM EST us Love L [place] DO LAB BLOOD ORDERABLES Final Re sult Performing Organization Address City/[facility]/ZIP Co de Phone Number [facility] [address] [place] [address] * Hepatitis C Antibody - ED (06/12/2024 4:36 PM EST) Hepatitis C Antibody Negative Negative 06/12/2024 5:29 PM EST [facility] Blood Venous blood specimen / Unknown Venipuncture / Unknown 06/12/2024 4:36 PM EST 06/12/2024 4:47 PM EST Love L [place] DO LAB BLOOD ORDERABLES Final Re sult Performing Organization Address City/[facility] Co de Phone Number [facility] [address] [place] [address] from Last 3 Months or Most Recently Relevant to Health Maintenance Insurance [facility] MEDICARE Care Teams Cma Or Lpn Relationship Specialty Start Date End Date Moni Morin APRN PCP - General 10/04/20
--- NOTE | 2024-11-28 08:34 | MM_ITS ---
FINAL REPORT CLINICAL HISTORY: POST BX FINDINGS: MAMMOGRAM RIGHT TECHNIQUE: Standard digital 2-D views COMPARISON: 11/02/2024 DENSITY: There are scattered areas of fibroglandular density FINDINGS: Post biopsy marker clip is noted to be in satisfactory position. Postbiopsy changes are noted. IMPRESSION: Biopsy marker clip in good position ASSESSMENT: A post-procedure mammogram is used to confirm the position and deployment of a breast tissue marker after a biopsy RECOMMENDATION: Pending histopathology evaluation Authenticated and ERN
--- NOTE | 2024-11-28 09:00 | US_ITS ---
FINAL REPORT CLINICAL HISTORY: abn MM -- RT BREAST MASS -- RT BREAST BX -- MAMMOTOME -- DR STEWART CEBALLOS FINDINGS: ULTRASOUND-GUIDED RIGHT BREAST CORE BIOPSY TECHNIQUE: Limited images were obtained to localize region of interest. The right breast was prepped in a routine sterile fashion and locally anesthetized with 1% lidocaine. Standard written informed consent was obtained. An ovoid solid isoechoic lesion was noted at approximately 2:00 measuring up to 8 mm in greatest dimension. An 11-gauge vacuum assisted hand-held device was utilized. The needle was positioned posterior to the lesion. Multiple vacuum assisted core samples were obtained. The lesion was noted to be significantly smaller following biopsy. A biopsy marker clip was deployed in satisfactory position. Postbiopsy mammogram showed postbiopsy changes with clip in satisfactory position. Procedure was well tolerated . CONCLUSION: 1. Technically successful ultrasound guided vacuum assisted core biopsy of right breast lesion as above. 2. Biopsy marker clip deployed Authenticated and ERN
== END 2024-11-28 23:59 | disposition home or self-care (01) ==
LOC: RAD 08:26
PROVIDERS: PCP Family Medicine; Visit Provider Family Medicine
DX: D24.1 Benign neoplasm of right breast (principal)
CPT/HCPCS: 19083; 77065; 88305; C2618